=== PATIENT | female | born 1995 | race Caucasian/White ===

== ENCOUNTER → 2023-03-25 09:53 | Outpatient (BNVA) | payer SELFPAY | PROVIDERS: Visit Provider Physician Assistant Surgical ==

== ENCOUNTER 2023-04-28 12:52 | Outpatient (AMB) | payer OTHER, SELFPAY ==
--- NOTE | 2023-04-28 12:56 | A.OFFVIS_ITS ---
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 Her goal is to be more active and relieve rashes under pannus. . She reports first being concerned about her weight since puberty. She has tried multiple methods of weight loss including diets and increasing exercise. without permanent results. She lives alone. 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 She wakes at: 7am bed at 10:30 - 11 am Breakfast: skips breakfast 3d/ week. 7:15 am - Elevation bars 12 g, 170 calories, or Elevation shake 10 mg. Lunch: 12 pm - restaurant food 3d/ week.OR leftovers and water Dinner: 5pm - 9pm - when hungry, rice and beans bowls with chicken and cheese, sour cream salsa and chips or pizza. Vegetables 3-4 d/ week. Likest o repeat her meals After dinner: ice cream bars often Other snacks: none Liquids: 10 am - 2pm One Coffee - 2-3 shots of espresso, 2% milk and chocolate syrup once a day. Alcohol intake: 12 drinks in one year, tobacco: none, marijuana: once every few weeks, edibles - not munchhy Exercise: walks 3-4 d/week, half mile up to 2 miles. ? time. NO membership. Has a step for exercise. Last mammogram: never - too young Last pap smear: up to date control method: combination OCP ALIZA:2 ESS:10 GERD:0 QOL: 136 PFSH Surgical History History of placement of ear tubes Hx of adenoidectomy Hx of tonsillectomy Hx of wisdom tooth extraction Family History Mother High cholesterol Obesity Father High cholesterol Obesity Sister Asthma Social History Alcohol intake: current Alcohol intake frequency: holidays/special occasions only Patient Tobacco Use Status: Never used Tobacco Physical Exam Vital Signs: Last Vital Signs Temp 96.1 F L 04/28/23 12:58 Pulse 91 04/28/23 12:58 BP 138/85 04/28/23 12:58 Pulse Ox 98 04/28/23 12:58 Oxygen Delivery Method Room Air 04/28/23 12:58 BMI result Body Mass Index 61.5 Const General: cooperative, no acute distress and well developed Nutritional Appearance: obese Orientation/consciousness: patient oriented x3 HEENT Head: Yes normal to inspection Neck Neck: Yes normal visual inspection Thyroid: Thyroid normal Resp Effort & Inspection: normal respiratory effort Auscultation: clear to auscultation bilaterally Cardio Rate: regular rate Rhythm: regular rhythm Heart sounds: S1 normal heart sound present, S2 normal heart sound present and no murmurs GI Inspection: No distended, Yes Abdominal panniculus present and Yes obesity Palpation (GI): Soft to palpation, nontender and no guarding Skin General skin exam: no rashes or lesions noted and other (warm and dry) Wounds: no wounds Hair: normal Neuro General: patient oriented x3 Extrem General: Yes no pedal edema and Yes no calf tenderness Psych Attitude: cooperative Thought process: Normal thought process present Thought content: Normal thought content present Insight: Good insight present (Psych) Judgement: Good judgement present (Psych) Assessment & Plan Assessment & Plan (1) Morbid obesity: Code(s): E66.01 - Morbid (severe) obesity due to excess calories Plan: This is a 27 yo woman with morbid obesity and ADHD who will start SWL program to prepare for bariatric surgery. Blood work, h pylori , CXR, ECG, Abd ULS and UGI have been ordered. She is being scheduled for RD and BH initial consultations. She will start SWL classes and watch at 3 classes before her next appt with Zoe. 1. Adequate sleep of 7-8 hours per night discussed 2. Healthy meal plan - stop skipping meals and stop all restaurant food for now. All meals/MR's need to take 20 minutes to complete 8am - 30 gram shake 12 pm - 30 gram shake 3 pm- bar or yogurt 6 pm- dinner of 6 oz lean protein, 8 oz vegetable, 1 serving fruit 9pm - bar if needed Exercise - Cardio 4 d week - LS 2 mile videos or TBP videos. OR walk 2 miles in 45 minutes The importance of avoiding and breast feeding for at least 18 months after bariatric surgery was discussed in the information session and was reinforced today. Pt will purchase body composition analyzer (recommended list given to patient) and weight herself weekly. Next appt with me in 3 weeks. Text me with any questions and weekly weights. Patient is morbidly obese and is not considered stable at this time.?I spent a total of 60 minutes reviewing/updating records, examining the patient and counseling the patient on weight management as detailed above. (2) ADHD: Code(s): F90.9 - Attention-deficit hyperactivity disorder, unspecified type Orders: Orders Vitamin B12 and Folate Today E66.01 - Morbid (severe) obesity due to excess calories, F90.9 - Attention-deficit hyperactivity disorder, unspecified type, Z01.818 - Encounter for other preprocedural examination Comprehensive Met. Panel Today E66.01 - Morbid (severe) obesity due to excess calories, F90.9 - Attention-deficit hyperactivity disorder, unspecified type, Z01.818 - Encounter for other preprocedural examination C Reactive Protein Today E66.01 - Morbid (severe) obesity due to excess calories, F90.9 - Attention-deficit hyperactivity disorder, unspecified type, Z01.818 - Encounter for other preprocedural examination Ferritin Today E66.01 - Morbid (severe) obesity due to excess calories, F90.9 - Attention-deficit hyperactivity disorder, unspecified type, Z01.818 - Encounter for other preprocedural examination Hemoglobin A1c Today E66.01 - Morbid (severe) obesity due to excess calories, F90.9 - Attention-deficit hyperactivity disorder, unspecified type, Z01.818 - Encounter for other preprocedural examination Insulin Today E66.01 - Morbid (severe) obesity due to excess calories, F90.9 - Attention-deficit hyperactivity disorder, unspecified type, Z01.818 - Encounter for other preprocedural examination IRON PROFILE Today E66.01 - Morbid (severe) obesity due to excess calories, F90.9 - Attention-deficit hyperactivity disorder, unspecified type, Z01.818 - Encounter for other preprocedural examination Lipid Panel Today E66.01 - Morbid (severe) obesity due to excess calories, F90.9 - Attention-deficit hyperactivity disorder, unspecified type, Z01.818 - Encounter for other preprocedural examination PTHI Today E66.01 - Morbid (severe) obesity due to excess calories, F90.9 - Attention-deficit hyperactivity disorder, unspecified type, Z01.818 - Encounter for other preprocedural examination TSH reflex Free T4 Today E66.01 - Morbid (severe) obesity due to excess calories, F90.9 - Attention-deficit hyperactivity disorder, unspecified type, Z01.818 - Encounter for other preprocedural examination Vitamin A Today E66.01 - Morbid (severe) obesity due to excess calories, F90.9 - Attention-deficit hyperactivity disorder, unspecified type, Z01.818 - Encounter for other preprocedural examination Vitamin B1 Today E66.01 - Morbid (severe) obesity due to excess calories, F90.9 - Attention-deficit hyperactivity disorder, unspecified type, Z01.818 - Encounter for other preprocedural examination Vitamin D 25-OH Total Today E66.01 - Morbid (severe) obesity due to excess calories, F90.9 - Attention-deficit hyperactivity disorder, unspecified type, Z01.818 - Encounter for other preprocedural examination Zinc Today E66.01 - Morbid (severe) obesity due to excess calories, F90.9 - Attention-deficit hyperactivity disorder, unspecified type, Z01.818 - Encounter for other preprocedural examination ECG 12 lead EKG Today E66.01 - Morbid (severe) obesity due to excess calories, F90.9 - Attention-deficit hyperactivity disorder, unspecified type, Z01.818 - Encounter for other preprocedural examination FL upper GI w air Today E66.01 - Morbid (severe) obesity due to excess calories, F90.9 - Attention-deficit hyperactivity disorder, unspecified type, Z01.818 - Encounter for other preprocedural examination Complete Blood Count Auto Diff Today E66.01 - Morbid (severe) obesity due to excess calories, F90.9 - Attention-deficit hyperactivity disorder, unspecified type, Z01.818 - Encounter for other preprocedural examination H Pylori Breath Test Today E66.01 - Morbid (severe) obesity due to excess calories, F90.9 - Attention-deficit hyperactivity disorder, unspecified type, Z01.818 - Encounter for other preprocedural examination US abdomen comp w elastography Today E66.01 - Morbid (severe) obesity due to excess calories, F90.9 - Attention-deficit hyperactivity disorder, unspecified type, Z01.818 - Encounter for other preprocedural examination XR chest 2V Today E66.01 - Morbid (severe) obesity due to excess calories, F90.9 - Attention-deficit hyperactivity disorder, unspecified type, Z01.818 - Encounter for other preprocedural examination Referrals Behavioral Health Referral E66.01 - Morbid (severe) obesity due to excess calories, F90.9 - Attention-deficit hyperactivity disorder, unspecified type, Z01.818 - Encounter for other preprocedural examination Nutrition/Dietitian Referral E66.01 - Morbid (severe) obesity due to excess calories, F90.9 - Attention-deficit hyperactivity disorder, unspecified type, Z01.818 - Encounter for other preprocedural examination Coding Level of Care Code New Pt Level 5 (10860) Diagnoses Morbid obesity E66.01 ADHD F90.9
[2023-04-28 12:58] VITALS: BP 138/85; PULSE 91; TEMP 35.6; O2SAT 98; BMI 61.5
== END 2023-04-28 14:03 | disposition home or self-care (01) ==
PROVIDERS: Visit Provider Physician Assistant
DX: E66.01 Morbid (severe) obesity due to excess calories (principal); F90.9 Attention-deficit hyperactivity disorder, unspecified type
CPT/HCPCS: 99205

== ENCOUNTER → 2023-04-28 12:52 | Outpatient (BNVA) | payer OTHER, SELFPAY | PROVIDERS: Visit Provider Physician Assistant ==

== ENCOUNTER 2023-05-01 08:53 | Outpatient (REF) | payer OTHER, SELFPAY ==
--- NOTE | ~2023-05-01 | XR_ITS ---
EXAMINATION: XR CHEST CLINICAL INFORMATION: Obesity. COMPARISON: None available. TECHNIQUE: 2 views of the chest were obtained. FINDINGS: Cardiac and mediastinal silhouettes are normal in appearance. The lung volumes are slightly decreased but the lungs and pleural spaces are clear. No atelectasis. No acute osseous abnormalities. XR/XR chest 2V IMPRESSION: Unremarkable examination.
--- NOTE | 2023-05-01 09:00 | ECG_ITS ---
Test Reason : MORBID OBESITY Blood Pressure : / mmHG Vent. Rate : 083 BPM Atrial Rate : 083 BPM P-R Int : 136 ms QRS Dur : 078 ms QT Int : 364 ms P-R-T Axes : 057 047 041 degrees QTc Int : 427 ms Normal sinus rhythm Normal ECG No previous ECGs available Referred By: Gladys Valladares Electronically Signed By:LA JEAN
[2023-05-01 09:32] LABS: MANUAL DIFF FLAG NO
[2023-05-01 09:44] LABS: Basophils Absolute Auto 0.1 X10*3/uL (0.0-0.2); Basophils Percent Auto 0.9 % (0-2); Eosinophils Absolute Auto 0.3 X10*3/uL (0.0-0.4); Eosinophils Percent Auto 2.1 % (0-4); Imm Gran Abs Auto 0.04 X10*3/uL (0.00-0.03); Imm Gran Pct Auto 0.3 % (0.0-0.4); Lymphocytes Absolute Auto 2.4 X10*3/uL (1.2-4.9); Lymphocytes Percent Auto 20.6 % (20-40); Mean Corpuscular HGB Conc 30.8 g/dl (31.0-35.0); Mean Corpuscular Hemoglobin 24.5 pg (27.0-33.0); Mean Corpuscular Volume 79.6 fL (80.0-98.0); Mean Platelet Volume 9.1 fL (9.4-12.3); Monocytes Absolute Auto 0.6 X10*3/uL (0.1-1.2); Monocytes Percent Auto 5.2 % (2-11); Neutrophils Absolute Auto 8.3 x10*3/uL (2.0-8.3); Neutrophils Percent Auto 70.9 % (45-73); Platelet Count 550 X10*3/uL (160-400); Red Cell Distribution Width 16.1 % (11.0-16.0); White Blood Count 11.6 X10*3/uL (4.8-10.8)
[2023-05-01 09:52] LABS: Estimated Average Glucose 97 mg/dL
[2023-05-01 10:25] LABS: Alanine Aminotransferase 11 U/L (0-31); Alkaline Phosphatase 93 U/L (39-117); Anion Gap 17 (12-20); Aspartate Amino Transferase 13 U/L (5-31); Bilirubin Total 0.3 mg/dL (0.0-1.0); Blood Urea Nitrogen 16 mg/dL (9-16); C Reactive Protein 5.62 mg/dL (< or = 0.50); Calcium 9.6 mg/dL (8.4-10.2); Carbon Dioxide 22 mmol/L (22-29); Chloride 105 mmol/L (96-108); Cholesterol 202 mg/dL; Estimated Glomerular Filt Rate > 60; Glucose Random 89 mg/dL (60-115); HDL Cholesterol 46 mg/dL; Iron 48 mcg/dL (30-160); LDL Cholesterol Calculated 122 mg/dl; Percent Iron Saturation 13 % (15-50); Potassium 3.9 mmol/L (3.3-5.1); Sodium 140 mmol/L (135-145); Total Iron Binding Capacity 384 mcg/dL (228-428); Total Protein 7.8 g/dL (6.5-8.0); Triglycerides 172 mg/dL; Unsaturated Iron Binding 336 ug/dL
[2023-05-01 10:32] LABS: Ferritin 28 ng/mL (10-122); Insulin 24 uU/mL (2-29); TSH reflex Free T4 3.98 uIU/mL (0.32-4.0); Vitamin D 25-OH Total 33.8 ng/mL (>30)
[2023-05-01 10:44] LABS: Folate 8.2 ng/mL (> or = 4.0); Vitamin B12 423 pg/mL (200-900)
[2023-05-05 12:42] LABS: Calcium (PTHI) 9.4 mg/dL (8.6-10.2); PTHI 83 pg/mL (16-77)
[2023-05-06 02:04] LABS: Zinc 72 mcg/dL (60-130)
[2023-05-07 14:29] LABS: Vitamin A 70 mcg/dL (38-98)
[2023-05-07 15:39] LABS: Vitamin B1 9 nmol/L (8-30)
== END 2023-05-01 08:54 | disposition home or self-care (01) ==
LOC: HO.XRAY 08:53
PROVIDERS: Visit Provider Physician Assistant
DX: Z01.818 Encounter for other preprocedural examination (principal); E66.01 Morbid (severe) obesity due to excess calories; F90.9 Attention-deficit hyperactivity disorder, unspecified type
CPT/HCPCS: 36415; 71046; 80053; 80061; 82306; 82607; 82728; 82746; 83036; 83525; 83540; 83970; 84425; 84443; 84590; 84630; 85025; 86140; 93005

== ENCOUNTER → 2023-05-01 09:00 | Outpatient (BNV) | payer OTHER, SELFPAY | PROVIDERS: Visit Provider Internal Medicine | DX: E66.9 Obesity, unspecified (principal) | CPT/HCPCS: 93010 ==

== ENCOUNTER 2023-05-08 08:16 | Outpatient (AMB) | payer OTHER, SELFPAY ==
--- NOTE | 2023-05-08 08:19 | MHC.AMNUTRGE ---
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 Classes: 01/04 Previous weight loss methods attempted Her goal is to be more active and relieve rashes under pannus. . She reports first being concerned about her weight since puberty. She has tried multiple methods of weight loss including diets and increasing exercise. without permanent results. Dietary counseling reduction Who buys your food self Who prepares/cooks your food self Meal frequency regular: lunch, dinner and snacks and irregular: breakfast Diagnosis Nutrition problem #1 overweight/obesity As related to (etiology) #1 excess energy intake and physical inactivity As evidenced by (sign/symptom) #1 high BMI Monitoring/Goals Nutrition problem monitoring total energy intake, level of knowledge/skill, total PRO intake, total CHO intake, weight and oral fluids Outcome progress progressing Learning/Education Readiness to learn excellent Stages of change action Educational materials provided Yes Most Recent Diabetes Results: Cholesterol 202 mg/dL 05/01/23 HDL Cholesterol 46 mg/dL 05/01/23 Triglycerides 172 mg/dL 05/01/23 Creatinine 0.73 mg/dL (0.5-1.4) 05/01/23 Blood Urea Nitrogen 16 mg/dL (9-16) 05/01/23 Sodium 140 mmol/L (135-145) 05/01/23 Potassium 3.9 mmol/L (3.3-5.1) 05/01/23 Chloride 105 mmol/L (96-108) 05/01/23 Carbon Dioxide 22 mmol/L (22-29) 05/01/23 Calcium 9.6 mg/dL (8.4-10.2) 05/01/23 AST 13 U/L (5-31) 05/01/23 ALT 11 U/L (0-31) 05/01/23 Total Protein 7.8 g/dL (6.5-8.0) 05/01/23 Albumin 4.0 g/dL (3.5-5.0) 05/01/23 PFSH Surgical History History of placement of ear tubes Hx of adenoidectomy Hx of tonsillectomy Hx of wisdom tooth extraction Family History Mother High cholesterol Obesity Father High cholesterol Obesity Sister Asthma Social History Alcohol intake: current Alcohol intake frequency: holidays/special occasions only Patient Tobacco Use Status: Never used Tobacco Assessment & Plan Assessment & Plan (1) Morbid obesity: Code(s): E66.01 - Morbid (severe) obesity due to excess calories Patient Instructions: recommended increasing calories and protein slightly given age and trying to preserve metabolism. We also talked about some alternatives to keep meals exciting and have variety fdc such as balaji crunch in yogurt.. Appt with Gladys was given to pt but never booked , so this was fixed today. Her next appt will be with Gladys in may , so I will see pt in 2-3 weeks to bridge the gap in appointments and to support her. Pt will likely be a great candidate once she completes the program requirements. Coding Level of Care Code Nutr Indiv Intake (14969) Diagnoses Morbid obesity E66.01 Time Spent (min) 45
[2023-05-08 08:39] VITALS: BMI 59.7
== END 2023-05-08 10:21 | disposition home or self-care (01) ==
PROVIDERS: Visit Provider Dietitian, Registered
DX: E66.01 Morbid (severe) obesity due to excess calories (principal)

== ENCOUNTER → 2023-05-08 08:16 | Outpatient (BNVA) | payer OTHER, SELFPAY | PROVIDERS: Visit Provider Dietitian, Registered | DX: E66.01 Morbid (severe) obesity due to excess calories (principal); F90.9 Attention-deficit hyperactivity disorder, unspecified type; Z68.43 Body mass index [BMI] 50.0-59.9, adult; Z11.2 Encounter for screening for other bacterial diseases; Z71.3 Dietary counseling and surveillance | CPT/HCPCS: 97802 ==

== ENCOUNTER 2023-05-09 16:06 | Outpatient (REF) | payer OTHER, SELFPAY ==
[2023-05-10 10:31] LABS: H Pylori Breath Test Negative (Negative)
== END 2023-05-09 16:07 | disposition home or self-care (01) ==
LOC: HO.LNP 16:06
PROVIDERS: Visit Provider Physician Assistant
DX: Z01.818 Encounter for other preprocedural examination (principal); E66.01 Morbid (severe) obesity due to excess calories; F90.9 Attention-deficit hyperactivity disorder, unspecified type
CPT/HCPCS: 83013

== ENCOUNTER 2023-05-13 10:14 | Outpatient (REF) | payer OTHER, SELFPAY ==
--- NOTE | ~2023-05-13 | FL_ITS ---
EXAMINATION: XR FLUOROSCOPY UPPER GI WITH AIR CLINICAL INFORMATION: Morbid obesity due to excess calories, preop. COMPARISON: None available. TECHNIQUE: Standard dual air-contrast upper GI examination was performed using thick and thin barium. Numerous fluoroscopic images were obtained. FINDINGS: The esophagus is normal in caliber and contour. No evidence of mass, stricture, or mucosal abnormality. Esophageal peristalsis appears normal. No evidence of hiatus hernia. Minimal gastroesophageal reflux was observed during the exam. Images of the stomach, duodenal bulb, and duodenal sweep appear normal. FLUOROSCOPY TIME: 3 minutes 15 images obtained. DOSE AREA PRODUCT: 41.873 uGy-m2 (microgray-meter squared) FL/FL upper GI w air IMPRESSION: Minimal gastroesophageal reflux noted. Otherwise, normal double contrast upper GI examination.
== END 2023-05-13 10:15 | disposition home or self-care (01) ==
LOC: HO.XRAY 10:14
PROVIDERS: Visit Provider Physician Assistant
DX: Z01.818 Encounter for other preprocedural examination (principal); E66.01 Morbid (severe) obesity due to excess calories; F90.9 Attention-deficit hyperactivity disorder, unspecified type
CPT/HCPCS: 74246

== ENCOUNTER → 2023-05-13 10:15 | Outpatient (BNV) | payer OTHER, SELFPAY | PROVIDERS: Visit Provider Radiology Diagnostic Radiology | DX: Z01.818 Encounter for other preprocedural examination (principal) | CPT/HCPCS: 74246 ==

== ENCOUNTER 2023-05-20 08:17 | Outpatient (AMB) | payer OTHER, SELFPAY ==
--- NOTE | 2023-05-20 08:33 | MHC.AMNUTRGE ---
Intake VS Expanded 05/20/23 08:38 Height 5 ft 5 in Weight 356 lb BMI 59.2 Body Fat 194.4 Body Fat Percentage 54.6 Muscle Mass 153.2 Visceral Mass 21 Water Mass 116.2 BMR 2,440 Intake Visit Reasons: (OV) F/U SWL Allergies No Known Allergies Allergy (Verified 04/28/23 12:58) HPI Nutrition Presentation Details [employer] weight (04/28) 369# - BMI 61.5 weight last nutrition appt 2 weeks ago 359# current weight today 356# Reason for consult elevated BMI Diet Assmnt Details Started the day after she met with Kuldeep 8:30am Premier premade or [employer] shakes 12pm shake 3pm Aldis 18g protein bar dinner: meat, veg, fruit isn't eating the evening protein bar - feels full after dinner Prior to coming to program, used to get taco Hartley very freuqently. shares she was craving it the other day and instead got the mini low carb mission wraps, and made her own tacos at home. Exercise: Once did 0.8 mile walk, very tired. Now is doing 3x per week dance videos about 30-35 minutes long. needs to take breaks but keeps going. She is open to adding in walking 1 day per week She lives alone.? Classes: 01/04 Previous weight loss methods attempted Her goal is to be more active and relieve rashes under pannus. . She reports first being concerned about her weight since puberty. She has tried multiple methods of weight loss including diets and increasing exercise. without permanent results. Dietary counseling reduction Diagnosis Nutrition problem #1 overweight/obesity As related to (etiology) #1 excess energy intake and physical inactivity As evidenced by (sign/symptom) #1 high BMI Monitoring/Goals Nutrition problem monitoring total energy intake, level of knowledge/skill, total PRO intake, total CHO intake, weight and oral fluids Outcome progress progressing Learning/Education Readiness to learn excellent Stages of change action Educational materials provided Yes Most Recent Diabetes Results: Cholesterol 202 mg/dL 05/01/23 HDL Cholesterol 46 mg/dL 05/01/23 Triglycerides 172 mg/dL 05/01/23 Creatinine 0.73 mg/dL (0.5-1.4) 05/01/23 Blood Urea Nitrogen 16 mg/dL (9-16) 05/01/23 Sodium 140 mmol/L (135-145) 05/01/23 Potassium 3.9 mmol/L (3.3-5.1) 05/01/23 Chloride 105 mmol/L (96-108) 05/01/23 Carbon Dioxide 22 mmol/L (22-29) 05/01/23 Calcium 9.6 mg/dL (8.4-10.2) 05/01/23 AST 13 U/L (5-31) 05/01/23 ALT 11 U/L (0-31) 05/01/23 Total Protein 7.8 g/dL (6.5-8.0) 05/01/23 Albumin 4.0 g/dL (3.5-5.0) 05/01/23 PFSH Surgical History History of placement of ear tubes Hx of adenoidectomy Hx of tonsillectomy Hx of wisdom tooth extraction Family History Mother High cholesterol Obesity Father High cholesterol Obesity Sister Asthma Social History Alcohol intake: current Alcohol intake frequency: holidays/special occasions only Patient Tobacco Use Status: Never used Tobacco Assessment & Plan Assessment & Plan (1) Morbid obesity: Code(s): E66.01 - Morbid (severe) obesity due to excess calories Patient Instructions: 1. talked about healthier options for sweet cravings around time of menstrual period 2. encouraged 4x per week now for exercise, continue videos and add in 1 mile walking on 4th day 3. encouraged activity throughout the day to prevent long periods of being sedentary 4. f/u 06/16 with kuldeep, then with 06/25 8:30 video and complete classes before appt she will likely be a great candidate once she completes program requirements Coding Level of Care Code Nutr Indiv Subseq (15676) Diagnoses Morbid obesity E66.01 Time Spent (min) 30
[2023-05-20 08:38] VITALS: BMI 59.2
== END 2023-05-20 08:53 | disposition home or self-care (01) ==
PROVIDERS: Visit Provider Dietitian, Registered
DX: E66.01 Morbid (severe) obesity due to excess calories (principal)

== ENCOUNTER → 2023-05-20 08:17 | Outpatient (BNVA) | payer OTHER, SELFPAY | PROVIDERS: Visit Provider Dietitian, Registered | DX: E66.01 Morbid (severe) obesity due to excess calories (principal); Z68.43 Body mass index [BMI] 50.0-59.9, adult; Z71.3 Dietary counseling and surveillance | CPT/HCPCS: 97803 ==

== ENCOUNTER 2023-05-22 07:50 | Outpatient (REF) | payer OTHER, SELFPAY ==
--- NOTE | ~2023-05-22 | US_ITS ---
EXAMINATION: US COMPLETE ABDOMEN WITH LIVER ELASTOGRAPHY CLINICAL INFORMATION: Obesity. COMPARISON: None available. TECHNIQUE: Real-time imaging of the abdominal viscera. Noninvasive ultrasound liver fibrosis assessment is performed using Sonam ElastPQ point quantification shear wave elastography (2D-SWE) with a C5-2 MHz transducer. Multiple elastography samples are obtained. Imaging is technically limited by body habitus. FINDINGS: PANCREAS: Normal. The visualized pancreatic head and body are normal in appearance. The remainder of the pancreas is obscured from visualization by the overlying bowel gas. ABDOMINAL AORTA: The proximal, middle, and distal aortic segments are normal in caliber. INFERIOR VENA CAVA: Visualized portions are normal. LIVER: Normal. The liver demonstrates normal size, contour and echogenicity. No focal lesion or intrahepatic biliary duct dilatation. The right lobe measures 15.4 cm in length. The left lobe measures 12.9 cm in length. Portal flow is towards the liver (hepatopetal). Shear wave liver elastography median stiffness is 2.32 m/s (reference: normal median stiffness is 1.3 m/s or less). IQR/median stiffness to assess sampling precision is 0.11 (reference: good quality data set is IQR/median stiffness of 0.15 or less). GALLBLADDER: Normal. The gallbladder is physiologically distended without evidence of stones, sludge, polyps, wall thickening or pericholecystic fluid. COMMON BILE DUCT: Normal in caliber measuring 0.4 cm in diameter. RIGHT KIDNEY: Normal. No hydronephrosis. No renal calculi or focal parenchymal lesions. The kidney measures 10.4 cm in maximum dimension. LEFT KIDNEY: Normal. No hydronephrosis. No renal calculi or focal parenchymal lesions. The kidney measures 11.3 cm in maximum dimension. SPLEEN: Normal. The spleen measures 12.7 cm in maximum dimension. FREE FLUID: None. US/US abdomen comp w elastography IMPRESSION: Liver elastography: Measuremensts are consistent with compensated advanced chronic liver disease. REFERENCE: Society of Radiologists in Ultrasound Liver Stiffness Thresholds (2020): LIVER STIFFNESS THRESHOLDS: *Liver Stiffness equal or less than 1.3 m/s: High probability of being normal. *Liver Stiffness less than 1.7 m/s: In the absence of other known clinical signs, rules out compensated advanced chronic liver disease. *Liver Stiffness 1.7-2.1 m/s: Suggestive of compensated advanced chronic liver disease but need further test for confirmation. *Liver Stiffness over 2.1 m/s: Rules in compensated advanced chronic liver disease. *Liver Stiffness over 2.4 m/s: Suggestive of clinically significant portal hypertension. QUALITY OF DATA SET: *IQR/Median value equal or less than 0.15 implies a quality data set. *IQR/Median value over 0.15 implies a poor quality data set. SIGNIFICANT CHANGE FROM PRIOR EXAM: Significant change if liver stiffness measurement is 10% or greater from prior exam. OTHER CONSIDERATIONS: The stage of liver fibrosis may be overestimated in the setting of acute hepatitis, liver inflammation, elevated liver function tests, hepatic vascular congestion, obstructive cholestasis, non-fasting state, and infiltrative diseases such as amyloidosis and lymphoma. In some patients with NAFLD, the liver stiffness thresholds for compensated advanced chronic liver disease may be lower. In causes other than viral hepatitis and NAFLD, liver stiffness thresholds are not well established.
== END 2023-05-22 07:51 | disposition home or self-care (01) ==
LOC: HO.US 07:50
PROVIDERS: Visit Provider Physician Assistant
DX: Z01.818 Encounter for other preprocedural examination (principal); E66.01 Morbid (severe) obesity due to excess calories; F90.9 Attention-deficit hyperactivity disorder, unspecified type
CPT/HCPCS: 76705; 76981

== ENCOUNTER 2023-05-27 10:46 | Outpatient (AMB) | payer OTHER, SELFPAY ==
--- NOTE | 2023-05-27 10:05 | MHC.OFFVISWM ---
Intake VS Expanded 05/27/23 11:01 Height 5 ft 5 in Weight 352 lb BMI 58.6 BP 140/92 H Blood Pressure Location Rt brachial Blood Pressure Position Sitting Pulse 108 H Pulse Source Pulse Oximeter Temp 96.1 F L Temperature Source Temporal Artery Scan Pulse Oximetry 96 Oxygen Delivery Method Room Air Body Fat 187.2 Body Fat Percentage 53.2 Free Fat Mass 164.6 Muscle Mass 156.6 Visceral Mass 20.0 Water Mass 118.4 BMR 2,474 Intake Visit Reasons: (OV) F/U SWL Allergies No Known Allergies Allergy (Verified 05/27/23 11:01) HPI HPI Comments History of Present Illness Details This is the patients second appt for SWL. Starting weight was 369.4 lbs on 04/28/23. TBWL is 17.4 lbs or 4.7% TBWL. Meal plan: 8am - Fairlife OR Premier RTD shake 12 pm - shake or yogurt and 1/2 serving Ifrah crunch (approved by Zoe) 3 pm - alternates with 12 pm choices 6pm - 6 oz each protien and vegetable 8:30 - cantaloupe or apples. Exercise plan: 2.5 days/ week. [employer][pecialists [employer] videos - 15 or 30 minutes may do another 15 minute video for total of 30 minutes. Also takes walks in evening Pre op work up completed as follows: SWL classes - 01/04 appts -05/29, Regla JAY appts - follow up on 06/25 H pylori - negative Labs - done, LFT's normal CXR and ECG - both normal ULS - Liver elastography:? Measuremensts are consistent with compensated advanced chronic liver disease. R 15.4, L 12.9 cms ?UGI - minimal reflux only PFSH Surgical History History of placement of ear tubes Hx of adenoidectomy Hx of tonsillectomy Hx of wisdom tooth extraction Family History Mother High cholesterol Obesity Father High cholesterol Obesity Sister Asthma Social History Alcohol intake: current Alcohol intake frequency: holidays/special occasions only Patient Tobacco Use Status: Never used Tobacco Physical Exam Vital Signs: Last Vital Signs Temp 96.1 F L 05/27/23 11:01 Pulse 108 H 05/27/23 11:01 BP 140/92 H 05/27/23 11:01 Pulse Ox 96 05/27/23 11:01 Oxygen Delivery Method Room Air 05/27/23 11:01 BMI result Body Mass Index 58.6 Assessment & Plan Assessment & Plan (1) Morbid obesity: Code(s): E66.01 - Morbid (severe) obesity due to excess calories Plan: Very good start with 17.4 lbs or 4.7% TBWL. She has a good meal plan - but as I recommended to her the first tiem she should have another MR per day. Will add hb egg or reduced fat cheesestick with fruit in the evening. Exercise - not adequate yet. Will start LS 2 mile videos 4 d/ week for now - needs 30 minutes continuous at a time. Will also contienu her evening walks. Once the cardio is easier will add ST. I have encouraged her to send me weekly weights so that I can help her more. Next appt with me in 3 weeks, I have reviewed all upcoming appts with her. Patient is morbidly obese and is not considered stable at this time. I spent 30 minutes in total with patient reviewing/updating records, examining the patient and counseling the patient on weight management as detailed above. (2) Liver disease, chronic: Code(s): K76.9 - Liver disease, unspecified Coding Level of Care Code Est Pt Level 4 (60982) Diagnoses Morbid obesity E66.01 Liver disease, chronic K76.9
[2023-05-27 11:01] VITALS: BP 140/92; PULSE 108; TEMP 35.6; O2SAT 96; BMI 58.6
== END 2023-05-27 11:33 | disposition home or self-care (01) ==
PROVIDERS: Visit Provider Physician Assistant
DX: E66.01 Morbid (severe) obesity due to excess calories (principal); K76.9 Liver disease, unspecified
CPT/HCPCS: 99214

== ENCOUNTER → 2023-05-27 10:46 | Outpatient (BNVA) | payer OTHER, SELFPAY | PROVIDERS: Visit Provider Physician Assistant ==

== ENCOUNTER 2023-05-29 10:36 | Outpatient (AMB) | payer OTHER, SELFPAY ==
--- NOTE | 2023-05-29 10:14 | A.OFFWM_ITS ---
Intake Intake Visit Reasons: VIDEO BH Intake Allergies No Known Allergies Allergy (Verified 05/27/23 11:01) PFSH Surgical History History of placement of ear tubes Hx of adenoidectomy Hx of tonsillectomy Hx of wisdom tooth extraction Family History Mother High cholesterol Obesity Father High cholesterol Obesity Sister Asthma Social History Alcohol intake: current Alcohol intake frequency: holidays/special occasions only Patient Tobacco Use Status: Never used Tobacco Behavioral Health Assessment Weight Management Therapy Therapy Notes Details Pt reported that she is looking to have weight loss surgery to help improve her health and quality of life. She struggles to do the things she loves because of her weight. Pt is not in therapy but was in the past. She reported seeking out help for anxiety and depression in the past and was diagnosed with ADHD. Pt has no history of inpatient psychiatric admissions or problems with drugs or alcohol. Presenting Concerns Referral Source provider Reason for referral weight loss surgery evaluation Precipitating Event obesity Living Situation Current Living Situation Other (Patient lives in an apartment on the [facility] where she works. ) At risk of losing current housing? No Satisfied with current living situation? Yes Comments Patient lives on her own on a college campus. Food/Weight/Diet Expectations of change weight loss and maintenance History/Relationship with food Patient stated that she did not realize she might be an emotional eater. She stated that if she gets taco leo then she will get it everyday that week, same with Celi Maria Michell reported that she was over eating, eating in the car, and then would feel icky after eating. She would often eat out sometimes more than once a day, definitely everyday. Driving off campus to get food was a way for her to get away because she works and lives in the same building. Sometimes would have late dinner and then stay up late. Also would drink lattes from [employer] often. During graduate school she worked at [employer] and would get any drink for free and 7 free meals. History/Relationship with weight Pt stated that since puberty she has been the big girl . After an injury in graduate school she had lost some mobility and was in pain which led to more weight gain. History/Relationship with dieting no prior history of specific diets, has only tried calorie reduction Binge Eating Do you frequently eat large amounts of food in short periods of time, not feeling physically hungry? No Do you feel out of control when you eat a large amount of food in a short perio d of time? No Do you eat large amounts of food rapidly and typically alone? No Night Eating Do you wake up at least once during the night to eat? No If you wake up in the night, do you find that it is necessary to eat something in order to fall back asleep? No Do you have little or no appetite in the morning and feel very hungry in the evening, often overeating between dinner and when you go to bed? No Social History Family history and relationship Pt is from [place] and went to graduate school in [place]. She now works at [employer]. Pt was raised by her mother and father and younger sister. She reported both parents are overweight. 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 none Education Highest grade completed graduate school counseling degree for higher education (half admin/psychology). Preferred learning style Auditory, Verbal, Written, Learn by doing and Visual Currently enrolled in educational program? No Interested in further educational program? 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 No Meaningful activities reading, nature, sitting by the water Financial Situation Describe current financial situation Comfortable Financial assistance? None Service Service? No Mental Health and Addiction Treatment Current/Past substance abuse? No Current/Past addictive behavior concerns? No Pain Screening Current pain? No Pain in the last few months? No Medications Is the patient compliant with medications? Yes Does the patient have S[place] Guardian in place? Not applicable Does the patient use complimentary health approaches? No Trauma/Abuse History History of trauma? No Questionnaires PHQ-9 Over the last 2 weeks, how often have you been bothered by any of the following problems? 1. Little interest or pleasure in doing things: several days 2. Feeling down, depressed, or hopeless: not at all 3. Trouble falling or staying asleep, or sleeping too much: several days 4. Feeling tired or having little energy: several days 5. Poor appetite or overeating: several days 6. Feeling bad about yourself - or that you are a failure or have let yourself or your family down: not at all 7. Trouble concentrating on things, such as reading the newspaper or watching television: several days 8. Moving or speaking so slowly that other people could have noticed. Or the opposite - being so fidgety or restless that you have been moving around a lot more than usual: not at all 9. Thoughts that you would be better off or of hurting yourself in some way: not at all Total score: 5 Depression Screening Interpretation: Negative Source: Developed by Drs. Scout King, Arlene Colmenares, Elijah Stoll and colleagues, with an educational radha from [employer]. Binge Eating Scale Group 1 A. I don't feel self-conscious about my wt. or body size when I'm with others. B. I feel concerned about how I look to others, but it normally does not make me fell disappointed with myself C. I do get self-conscious about my appearance and wt. which makes me feel disappointed in myself. D. I feel very self-conscious about my wt. and frequently I feel intense shame and disgust for myself. I try to avoid social contacts because of my self- consciousness. Response Group 1: C Group 2 A. I don't have any difficulty eating slowly in the proper manner. B. Although I seem to gobble down foods, I don't end up feeling stuffed because of eating to much. C. At times, I tend to eat quickly and then, I feel uncomfortably full afterwards. D. I have the habit of bolting down my food, without really chewing it. When this happens I usually feel uncomfortably stuffed because I've eaten to much. Response Group 2: A Group 3 A. I feel capable to control my eating urges when I want to. B. I feel like I have failed to control my eating more than the average person. C. I feel utterly helpless when it comes to feeling in control of my eating urges. D. Because I feel so helpless about controlling my eating I have become very desperate about trying to get control. Response Group 3: D Group 4 A. I don't have the habit of eating when I'm bored. B. I sometimes eat when I'm bored, but often I'm able to get busy and get my mind off food. C. I have a regular habit of eating when I'm bored, but occasionally, I can use some other activity to get my mind off eating. D. I have a strong habit of eating when I'm bored. Nothing seems to help me breath the habit. Response Group 4: B Group 5 A. I'm usually physically hungry when I eat something. B. Occasionally, I eat something on impulse even though I really am not hungry. C. I have the regular habit of eating foods, that I might not really enjoy, to satisfy a hungry feeling even though physically, I don't need the food. D. Although I'm not physically hungry, I get a hungry feeling in my mouth that only seems to be satisfied when I eat a food, like sandwich, that fills my mouth. Sometimes, when I eat the food to satisfy my mouth hunger, I then spit the food out so I won't gain weight. Response Group 5: B Group 6 A. I don't feel any guilt or self-hate after I overeat. B. After I overeat, occasionally I feel guilt or self-hate. C. Almost all the time I experience strong guilt or self-hate after I overeat. Response Group 6: B Group 7 A. I don't lose total control of my eating when dieting even after periods when I overeat. B. Sometimes when I eat a forbidden food on a diet, I feel like I blew it and eat even more. C. Frequently, I have the habit of saying to myself, I've blown it now, why not go all the way, when I overeat on a diet. When that happens I eat more. D. I have a regular habit of starting a strict diets for myself but I break the diets by going on an eating binge. My life seems to be either a feast or famine. Response Group 7: A Group 8 A. I rarely eat so much food that I feel uncomfortably stuffed afterwards. B. Usually about once a month, I each such a quantity of food, I end up feeling very stuffed. C. I have regular periods during the month when I eat large amounts of food, either at mealtime or at snacks. D. I eat so much food that I regularly feel quite uncomfortable after eating and sometimes a bit nauseous. Response Group 8: C Group 9 A. My level of calorie intake does not go up very high or go down very low on a regular basis. B. Sometimes after I overeat, I will try to reduce my caloric intake to almost nothing to compensate for the excess calories I've eaten. C. I have a regular habit of overeating during the night. It seems that my routine is not to be hungry in the morning but overeat in the evening. D. In my adult years, I have had week-long periods where I practically starve m yself. This follows periods when I overeat. It seems I live a life of either feast or famine. Response Group 9: A Group 10 A. I usually am able to stop eating when I want to. I know when enough is enough. B. Every so often, I experience a compulsion to eat which I can't seem to control. C. Frequently, I experience strong urges to eat which I seem unable to control, but at other times I can control my eating urges. D. I feel incapable of controlling urges to eat. I have a fear of not being able to stop eating voluntarily. Response Group 10: A Group 11 A. I don't have any problem stopping eating when I feel full. B. I usually can stop eating when I feel full but occasionally overeat leaving me feeling uncomfortably stuffed. C. I have a problem stopping eating once I start and usually I feel uncomfortably stuffed after I eat a meal. D. Because I have a problem not being able to stop eating when I want, I sometimes have to induce vomiting to relieve my stuffed feeling. Response Group 11: B Group 12 A. I seem to eat just as much when I'm with others, Family social gatherings as when I'm by myself. B. Sometimes, when I'm with other persons, I don't eat as much as I want to eat because I'm self-conscious about my eating. C. Frequently, I eat only a small amount of food when others are present, because I'm very embarrassed about my eating. D. I feel so ashamed about overeating that I pick times to overeat when I know no one will see me. I feel like a closet eater. Response Group 12: A Group 13 A. I eat three meals a day with only an occasional between meal snack. B. I eat 3 meals a day, but I also normally snack between meals. C. When I am snacking heavily, I get in the habit of skipping regular meals. D. There are regular periods when I seem to be continually eating, with no plann ed meals. Response Group 13: A Group 14 A. I don't think much about trying to control unwanted eating urges. B. At least some of the time, I feel my thoughts are pre-occupied with trying to control my eating urges. C. I feel that frequently I spend much time thinking about how much I ate or about trying not to eat anymore. D. It seems to me that most of my waking hours are pre-occupied by thoughts about eating or not eating. I feel like I'm constantly struggling not to eat. Response Group 14: B Group 15 A. I don't think about food a great deal. B. I have strong craving for food but they last only for brief periods of time. C. I have days when I can't seem to think about anything else but food. D. Most of my days seem to be pre-occupied with thoughts about food. I feel like I live to eat. Response Group 15: B Group 16 A. I usually know whether or not I'm physically hungry. I take the right portion of food to satisfy me. B. Occasionally, I feel uncertain about knowing whether or not I'm physically hungry. A these times it's hard to know how much food I should take to satisfy me. C. Even though I might know how many calories I should eat, I don't have any idea what is a normal amount of food for me. Response Group 16: B Binge Eating Score: 14 Score less than 17 Minimal Risk Score between 18-26 Moderate Risk Score between 27-46 High Risk Assessment & Plan Assessment & Plan (1) ADHD (attention deficit hyperactivity disorder), combined type: Code(s): F90.2 - Attention-deficit hyperactivity disorder, combined type (2) Morbid obesity: Code(s): E66.01 - Morbid (severe) obesity due to excess calories Plan Patient is doing very well, she has no serious mental health barriers. She is cleared for surgery when ready. Telehealth Telehealth Location of provider rendering services: other Location of patient: address on file Patient Identification confirmed using: Name, : Yes Telehealth method: video Patient verbally consented to treatment: Yes Patient verbally consented to billing insurance company: Yes Patient informed of any privacy concerns related to visit: Yes Minutes spent on Phone/Video with Pt.: 45 Coding Level of Care Code Tele Psy Diag Eval (11058) Diagnoses ADHD (attention deficit hyperactivity disorder), combined type F90.2 Morbid obesity E66.01 Time Spent (min) 45
== END 2023-05-29 10:42 | disposition home or self-care (01) ==
LOC: HO.HBST 10:36
PROVIDERS: Visit Provider Counselor Mental Health
DX: F90.2 Attention-deficit hyperactivity disorder, combined type (principal); E66.01 Morbid (severe) obesity due to excess calories
CPT/HCPCS: 90791

== ENCOUNTER → 2023-05-29 10:36 | Outpatient (BNVA) | payer OTHER, SELFPAY | PROVIDERS: Visit Provider Counselor Mental Health ==

== ENCOUNTER 2023-06-20 08:15 | Outpatient (AMB) | payer OTHER, SELFPAY ==
--- NOTE | 2023-06-20 08:17 | MHC.OFFVISWM ---
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 Meal plan: 8:30 - shake 12 pm - yogurt with Ifrah crunch OR Shake 3pm - alternates with 12 pm 6- 8pm depending on work schedule - 6 oz protein and 6 oz veg Somedays will have 1 hb egg and low fat cheese stick and fresh fruit Exercise - Had URI infection, started LS 2 miles videos 4d/ week then got sick. Pre op work up completed as follows: SWL classes - 05/06 appts -05/29, Regla cleared RD appts - follow up on 06/25 H pylori - negative Labs - done, LFT's normal CXR and ECG - both normal ULS - Liver elastography:? Measuremensts are consistent with compensated advanced chronic liver disease. R 15.4, L 12.9 cms ?UGI - minimal reflux only PFSH Surgical History History of placement of ear tubes Hx of wisdom tooth extraction Hx of adenoidectomy Hx of tonsillectomy Family History Mother High cholesterol Obesity Father High cholesterol Obesity Sister Asthma Social History Alcohol intake: current Alcohol intake frequency: holidays/special occasions only Patient Tobacco Use Status: Never used Tobacco Physical Exam Vital Signs: Last Vital Signs Temp 95.8 F L 06/20/23 08:23 Pulse 103 H 06/20/23 08:23 BP 142/84 H 06/20/23 08:23 Pulse Ox 98 06/20/23 08:23 Oxygen Delivery Method Room Air 06/20/23 08:23 BMI result Body Mass Index 57.5 Assessment & Plan Assessment & Plan (1) Morbid obesity: Code(s): E66.01 - Morbid (severe) obesity due to excess calories Plan: Great progress with 23.6 lbs or 6.4% TBWL. Will continue meal plan as is - have bar at 5 pm if not having dinner until 8 pm. She is asking good questions about making soups, grits substitute etc.. recipe ideas given - will discuss further with Zoe next week. She is also asking about food treats and became tearful when discussing hr fear of binge eating. We discussed that this is a very important feeling to name and will have another appt with Regla denis nd support. Exercise - MUST develop regular routine now - will restart LS 2 mile videos 5 d/week and will send me texts weekly with how this is working for her and her weights. Next appt wtih me in 3 weeks Patient is morbidly obese and is not considered stable at this time. I spent minutes in total with patient reviewing/updating records, examining the patient and counseling the patient on weight management as detailed above. (2) ADHD (attention deficit hyperactivity disorder), combined type: Code(s): F90.2 - Attention-deficit hyperactivity disorder, combined type Coding Level of Care Code Est Pt Level 4 (04803) Diagnoses Morbid obesity E66.01 ADHD (attention deficit hyperactivity disorder), combined type F90.2
[2023-06-20 08:23] VITALS: BP 142/84; PULSE 103; TEMP 35.4; O2SAT 98; BMI 57.5
== END 2023-06-20 09:19 | disposition home or self-care (01) ==
PROVIDERS: Visit Provider Physician Assistant
DX: E66.01 Morbid (severe) obesity due to excess calories (principal); F90.2 Attention-deficit hyperactivity disorder, combined type
CPT/HCPCS: 99214

== ENCOUNTER → 2023-06-20 08:15 | Outpatient (BNVA) | payer OTHER, SELFPAY | PROVIDERS: Visit Provider Physician Assistant ==

== ENCOUNTER 2023-06-25 08:42 | Outpatient (AMB) | payer OTHER, SELFPAY ==
--- NOTE | 2023-06-25 08:37 | MHC.AMNUTRGE ---
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 Is now feeling much better and ready to resume her routine of 4 days per week She lives alone.? Classes: completed Previous weight loss methods attempted Her goal is to be more active and relieve rashes under pannus. . She reports first being concerned about her weight since puberty. She has tried multiple methods of weight loss including diets and increasing exercise. without permanent results. Highest weight (pounds) 374 Dietary counseling reduction Diagnosis Nutrition problem #1 overweight/obesity As related to (etiology) #1 excess energy intake and physical inactivity As evidenced by (sign/symptom) #1 high BMI Monitoring/Goals Nutrition problem monitoring total energy intake, level of knowledge/skill, total PRO intake, total CHO intake, weight and oral fluids Outcome progress progressing Learning/Education Readiness to learn excellent Stages of change action Educational materials provided Yes Most Recent Diabetes Results: No Data to Display [facility] Surgical History History of placement of ear tubes Hx of wisdom tooth extraction Hx of adenoidectomy Hx of tonsillectomy Family History Mother High cholesterol Obesity Father High cholesterol Obesity Sister Asthma Social History Alcohol intake: current Alcohol intake frequency: holidays/special occasions only Patient Tobacco Use Status: Never used Tobacco Assessment & Plan Assessment & Plan (1) Morbid obesity: Code(s): E66.01 - Morbid (severe) obesity due to excess calories Patient Instructions: Answered all questions today to patient's satisfaction. she will be a great candidate for surgery , she is cleared. She would like to continue nutrition appts for additional support, will be seen again 07/29 a 830-video Telehealth Telehealth Location of provider rendering services: practice address Location of patient: address on file Patient Identification confirmed using: Name, : Yes Telehealth method: video Patient verbally consented to treatment: Yes Patient verbally consented to billing insurance company: Yes Patient informed of any privacy concerns related to visit: Yes Minutes spent on Phone/Video with Pt.: 20 Coding Level of Care Code Nutr Indiv Subseq (06015) Diagnoses Morbid obesity E66.01 Time Spent (min) 20
== END 2023-06-25 08:56 | disposition home or self-care (01) ==
LOC: HO.HBS 08:42
PROVIDERS: Visit Provider Dietitian, Registered
DX: E66.01 Morbid (severe) obesity due to excess calories (principal)

== ENCOUNTER → 2023-06-25 08:42 | Outpatient (BNVA) | payer OTHER, SELFPAY | PROVIDERS: Visit Provider Dietitian, Registered | DX: E66.01 Morbid (severe) obesity due to excess calories (principal); Z71.3 Dietary counseling and surveillance | CPT/HCPCS: 97803 ==

== ENCOUNTER 2023-07-02 13:57 | Outpatient (AMB) | payer OTHER, SELFPAY ==
--- NOTE | 2023-07-02 14:07 | MHC.WMTHER ---
Intake Intake Visit Reasons: VIDEO F/U Allergies No Known Allergies Allergy (Verified 06/20/23 08:21) [facility] Surgical History History of placement of ear tubes Hx of wisdom tooth extraction Hx of adenoidectomy Hx of tonsillectomy Family History Mother High cholesterol Obesity Father High cholesterol Obesity Sister Asthma Social History Alcohol intake: current Alcohol intake frequency: holidays/special occasions only Patient Tobacco Use Status: Never used Tobacco Behavioral Health Assessment Weight Management Therapy Therapy Notes Details Patient discussed some of her difficulties navigating social events, saying no to treats, just feeling all the emotions especially from recent event. Pt described being spoken to on an online platform in a derogatory manner, which has left her feeling hurt and emotional. She has taken action from her place of employment on this matter. Patient was positively reinforced for allowing herself to cry and feel everything that has come up without the use of food as comfort. Practiced being in awareness of her body and needs. Active and supported throughout the session as well as validated. Pt reported that she is looking to have weight loss surgery to help improve her health and quality of life. She struggles to do the things she loves because of her weight. Pt is not in therapy but was in the past. She reported seeking out help for anxiety and depression in the past and was diagnosed with ADHD. Pt has no history of inpatient psychiatric admissions or problems with drugs or alcohol. Presenting Concerns Referral Source provider Reason for referral weight loss surgery evaluation Precipitating Event obesity Living Situation Current Living Situation Other (Patient lives in an apartment on the [facility] [employer] where she works. ) At risk of losing current housing? No Satisfied with current living situation? Yes Comments Patient lives on her own on a college campus. Food/Weight/Diet Expectations of change weight loss and maintenance History/Relationship with food Patient stated that she did not realize she might be an emotional eater. She stated that if she gets taco leo then she will get it everyday that week, same with Celi Maria Michell reported that she was over eating, eating in the car, and then would feel icky after eating. She would often eat out sometimes more than once a day, definitely everyday. Driving off campus to get food was a way for her to get away because she works and lives in the same building. Sometimes would have late dinner and then stay up late. Also would drink lattes from [employer] often. During graduate school she worked at [employer] and would get any drink for free and 7 free meals. History/Relationship with weight Pt stated that since puberty she has been the big girl . After an injury in graduate school she had lost some mobility and was in pain which led to more weight gain. History/Relationship with dieting no prior history of specific diets, has only tried calorie reduction Binge Eating Do you frequently eat large amounts of food in short periods of time, not feeling physically hungry? No Do you feel out of control when you eat a large amount of food in a short period of time? No Do you eat large amounts of food rapidly and typically alone? No Night Eating Do you wake up at least once during the night to eat? No If you wake up in the night, do you find that it is necessary to eat something in order to fall back asleep? No Do you have little or no appetite in the morning and feel very hungry in the evening, often overeating between dinner and when you go to bed? No Social History Family history and relationship Pt is from [place] and went to graduate school in [place]. She now works at [employer]. Pt was raised by her mother and father and younger sister. She reported both parents are overweight. 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 none Education Highest grade completed graduate school counseling degree for higher education (half admin/psychology). Preferred learning style Auditory, Verbal, Written, Learn by doing and Visual Currently enrolled in educational program? No Interested in further educational program? 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 No Meaningful activities reading, nature, sitting by the water Financial Situation Describe current financial situation Comfortable Financial assistance? None Service Service? No Mental Health and Addiction Treatment Current/Past substance abuse? No Current/Past addictive behavior concerns? No Pain Screening Current pain? No Pain in the last few months? No Medications Is the patient compliant with medications? Yes Does the patient have Santo Guardian in place? Not applicable Does the patient use complimentary health approaches? No Trauma/Abuse History History of trauma? No Assessment & Plan Assessment & Plan (1) ADHD (attention deficit hyperactivity disorder), combined type: Code(s): F90.2 - Attention-deficit hyperactivity disorder, combined type (2) Morbid obesity: Code(s): E66.01 - Morbid (severe) obesity due to excess calories Plan Patient is doing very well other than some mindset/small stressors, she has no serious mental health barriers. She is cleared for surgery when ready. Telehealth Telehealth Location of provider rendering services: practice address Location of patient: address on file Patient Identification confirmed using: Name, : Yes Telehealth method: video Patient verbally consented to treatment: Yes Patient verbally consented to billing insurance company: Yes Patient informed of any privacy concerns related to visit: Yes Minutes spent on Phone/Video with Pt.: 45 Coding Level of Care Code Tele Psytx 45 mins (87018) Diagnoses ADHD (attention deficit hyperactivity disorder), combined type F90.2 Morbid obesity E66.01 Time Spent (min) 45
== END 2023-07-02 14:06 | disposition home or self-care (01) ==
LOC: HO.HBST 13:57
PROVIDERS: Visit Provider Counselor Mental Health
DX: F90.2 Attention-deficit hyperactivity disorder, combined type (principal); E66.01 Morbid (severe) obesity due to excess calories
CPT/HCPCS: 90834

== ENCOUNTER → 2023-07-02 13:57 | Outpatient (BNVA) | payer OTHER, SELFPAY | PROVIDERS: Visit Provider Counselor Mental Health ==

== ENCOUNTER 2023-07-17 11:43 | Outpatient (AMB) | payer OTHER, SELFPAY ==
--- NOTE | 2023-07-18 10:15 | A.OFFWM_ITS ---
Intake Intake Visit Reasons: VIDEO BH F/U Allergies No Known Allergies Allergy (Verified 06/20/23 08:21) [facility] Surgical History History of placement of ear tubes Hx of wisdom tooth extraction Hx of adenoidectomy Hx of tonsillectomy Family History Mother High cholesterol Obesity Father High cholesterol Obesity Sister Asthma Social History Alcohol intake: current Alcohol intake frequency: holidays/special occasions only Patient Tobacco Use Status: Never used Tobacco Behavioral Health Assessment Weight Management Therapy Therapy Notes Details Patient talked about recent breakup, hurt she is feeling that the other person does not seem bothered by it. She stated that this was her first relationship as well. She started to notice red flags about the person not caring or having consideration for her and her time. Pt reported that she is looking to have weight loss surgery to help improve her health and quality of life. She struggles to do the things she loves because of her weight. Pt is not in therapy but was in the past. She reported seeking out help for anxiety and depression in the past and was diagnosed with ADHD. Pt has no history of inpatient psychiatric admissions or problems with drugs or alcohol. Presenting Concerns Referral Source provider Reason for referral weight loss surgery evaluation Precipitating Event obesity Living Situation Current Living Situation Other (Patient lives in an apartment on the [facility] where she works. ) At risk of losing current housing? No Satisfied with current living situation? Yes Comments Patient lives on her own on a college campus. Food/Weight/Diet Expectations of change weight loss and maintenance History/Relationship with food Patient stated that she did not realize she might be an emotional eater. She stated that if she gets taco leo then she will get it everyday that week, same with Celi Maria Michell reported that she was over eating, eating in the car, and then would feel icky after eating. She would often eat out sometimes more than once a day, definitely everyday. Driving off campus to get food was a way for her to get away because she works and lives in the same building. Sometimes would have late dinner and then stay up late. Also would drink lattes from [employer] often. During graduate school she worked at [email or web address] and would get any drink for free and 7 free meals. History/Relationship with weight Pt stated that since puberty she has been the big girl . After an injury in graduate school she had lost some mobility and was in pain which led to more weight gain. History/Relationship with dieting no prior history of specific diets, has only tried calorie reduction Binge Eating Do you frequently eat large amounts of food in short periods of time, not feeling physically hungry? No Do you feel out of control when you eat a large amount of food in a short period of time? No Do you eat large amounts of food rapidly and typically alone? No Night Eating Do you wake up at least once during the night to eat? No If you wake up in the night, do you find that it is necessary to eat something in order to fall back asleep? No Do you have little or no appetite in the morning and feel very hungry in the evening, often overeating between dinner and when you go to bed? No Social History Family history and relationship Pt is from [place] and went to graduate school in [place]. She now works at for[employer]. Pt was raised by her mother and father and younger sister. She reported both parents are overweight. 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 none Education Highest grade completed graduate school counseling degree for higher education (half admin/psychology). Preferred learning style Auditory, Verbal, Written, Learn by doing and Visual Currently enrolled in educational program? No Interested in further educational program? 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 No Meaningful activities reading, nature, sitting by the water Financial Situation Describe current financial situation Comfortable Financial assistance? None Service Service? No Mental Health and Addiction Treatment Current/Past substance abuse? No Current/Past addictive behavior concerns? No Pain Screening Current pain? No Pain in the last few months? No Medications Is the patient compliant with medications? Yes Does the patient have Santo Guardian in place? Not applicable Does the patient use complimentary health approaches? No Trauma/Abuse History History of trauma? No Assessment & Plan Assessment & Plan (1) ADHD (attention deficit hyperactivity disorder), combined type: Code(s): F90.2 - Attention-deficit hyperactivity disorder, combined type (2) Morbid obesity: Code(s): E66.01 - Morbid (severe) obesity due to excess calories Plan Patient is doing very well other than some mindset/small stressors, she has no serious mental health barriers. She is cleared for surgery when ready. Telehealth Telehealth Location of provider rendering services: other Location of patient: address on file Patient Identification confirmed using: Name, : Yes Telehealth method: video Patient verbally consented to treatment: Yes Patient verbally consented to billing insurance company: Yes Patient informed of any privacy concerns related to visit: Yes Minutes spent on Phone/Video with Pt.: 40 Coding Level of Care Code Tele Psytx 45 mins (07223) Diagnoses ADHD (attention deficit hyperactivity disorder), combined type F90.2 Morbid obesity E66.01 Time Spent (min) 40
== END 2023-07-18 10:14 | disposition home or self-care (01) ==
PROVIDERS: Visit Provider Counselor Mental Health
DX: F90.2 Attention-deficit hyperactivity disorder, combined type (principal); E66.01 Morbid (severe) obesity due to excess calories
CPT/HCPCS: 90834

== ENCOUNTER → 2023-07-17 11:43 | Outpatient (BNVA) | payer OTHER, SELFPAY | PROVIDERS: Visit Provider Counselor Mental Health ==

== ENCOUNTER 2023-07-24 08:30 | Outpatient (AMB) | payer OTHER, SELFPAY ==
--- NOTE | 2023-07-24 08:36 | A.OFFVIS_ITS ---
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 Is conc erned about potent ial for hair loss post op. Meal pl an: 8:30 - shake - Fairlife or Jhonatan ier RTD 12:30 alte rnates between ano ther shake or bar/ yogurt 3pm- altern ates with 12:30 pr oduct 5:30 - dinne r 6 oz vegetable a nd protein 7:30 - apple and cheese s tick or hb egg Exercise - Uses an brianne Switch with sensors for exerc ise - 30 minutes, 3d/ week for 300 - 370 calories. LS 2 miles - 1-2d/wee k and kwon 320 - 360 calories. Pre op work up comple barron as follows: SW L classes - 05/06 BH appts -05/29, [place] a cleared RD appts - follow up on 06/25, cleared H pylori - negativ e Labs - done, LFT 's normal CXR and ECG - both normal ULS - Liver elasto graphy:? Measureme nsts are consisten t with compensated advanced chronic liver disease. R 15.4, L 12.9 cms ? UGI - minimal refl ux only PFSH Surgical History History of placement of ear tubes Hx of wisdom tooth extraction Hx of adenoidectomy Hx of tonsillectomy Family History Mother High cholesterol Obesity Father High cholesterol Obesity Sister Asthma Social History Alcohol intake: current Alcohol intake frequency: holidays/special occasions only Patient Tobacco Use Status: Never used Tobacco Assessment & Plan Assessment & Plan (1) Morbid obesity: Code(s): E66.01 - Morbid (severe) obesity due to excess calories Plan: Excellent weight loss of 35.4 lbs or 9.8% TBWL over 3 months. Pre op work up is completed and she will have her next appt with Dr Corrales for surgical consultation. Meal plan changes - when needs to buy more protein shakes - purchase Premeir powder and mix shakes with water or UAM. Measure dinner in 12 forks each of protein and vegetables. Exercise - continue same exercises - and focus on 350 - 400 calories burned 5d/ week for 2,000 tracey/week. Patient is still morbidly obese and is not considered stable at this time. I spent 30 minutes in total speaking with the patient via video conference counseling , reviewing records and charting in patients chart. . (2) ADHD (attention deficit hyperactivity disorder), combined type: Code(s): F90.2 - Attention-deficit hyperactivity disorder, combined type (3) Liver disease, chronic: Code(s): K76.9 - Liver disease, unspecified Telehealth Telehealth Location of provider rendering services: practice address Location of patient: address on file Patient Identification confirmed using: Name, : Yes Telehealth method: video Patient verbally consented to treatment: Yes Patient verbally consented to billing insurance company: Yes Patient informed of any privacy concerns related to visit: Yes Coding Level of Care Code Tele Est Pt Level 4 (00127) Diagnoses Morbid obesity E66.01 ADHD (attention deficit hyperactivity disorder), combined type F90.2 Liver disease, chronic K76.9
[2023-07-24 08:38] VITALS: BMI 55.6
== END 2023-07-24 09:02 | disposition home or self-care (01) ==
LOC: HO.HBS 08:55
PROVIDERS: Visit Provider Physician Assistant
DX: E66.01 Morbid (severe) obesity due to excess calories (principal); Z68.43 Body mass index [BMI] 50.0-59.9, adult; F90.2 Attention-deficit hyperactivity disorder, combined type; K76.9 Liver disease, unspecified
CPT/HCPCS: 99214

== ENCOUNTER → 2023-07-24 08:30 | Outpatient (BNVA) | payer OTHER, SELFPAY | PROVIDERS: Visit Provider Physician Assistant ==

== ENCOUNTER → 2023-07-29 08:40 | Outpatient (BNVA) | payer OTHER, SELFPAY | PROVIDERS: Visit Provider Dietitian, Registered | DX: E66.9 Obesity, unspecified (principal); Z71.3 Dietary counseling and surveillance | CPT/HCPCS: 97803 ==

== ENCOUNTER 2023-08-13 08:05 | Outpatient (AMB) | payer OTHER, SELFPAY ==
--- NOTE | 2023-08-13 08:22 | MHC.OFFVISWM ---
Intake VS Expanded 08/13/23 09:31 Height 5 ft 5 in Weight 330 lb 4 oz BMI 55.0 Body Fat % 74.9 Body Fat Mass 247.4 Fat Free Mass 83.2 Visceral Fat Rating 30 Body Water % 17.3 Body Water Mass 57.1 Basal Metabolic Rate/Score 1,182 Intake Visit Reasons: TV Consult/Transfer Gladys Allergies No Known Allergies Allergy (Verified 08/13/23 08:23) Medication List - Last Reconciled 08/13/23 by Krzysztof Zelaya MD atomoxetine (Strattera) 25 mg PO BID norgestimate-ethinyl estradiol 0.18/0.215/0.25 mg-35 mcg (28) 1 tab PO DAILY HPI TV Consult/Transfer Gladys HPI Details Start time: 8.00am, End time: 9am ?I spent 50 minutes speaking with the patient on the phone plus an additional 10 minutes reviewing and updating records for a total of 60 minutes HPI Comments History of Present Illness Details Overall weight loss: 39lbs, or 10.56% TBWL Is doing either two premade Premier or 2 scoops of powdered Premier shakes (2 scoop in almond milk), one OIKOS [place] yogurt or Pure protein bar and one meal (6oz protein and 6oz vegetables) and a bar or an egg with a fruit. Exercise: is doing home treadmill x2/week for 330-350 calories, is doing home exercise videos [facility] Surgical History History of placement of ear tubes Hx of wisdom tooth extraction Hx of adenoidectomy Hx of tonsillectomy Family History Mother High cholesterol Obesity Father High cholesterol Obesity Sister Asthma Social History Alcohol intake: current Alcohol intake frequency: holidays/special occasions only Patient Tobacco Use Status: Never used Tobacco Physical Exam Vital Signs: BMI result Body Mass Index 55.0 Assessment & Plan Assessment & Plan (1) Morbid obesity: Code(s): E66.01 - Morbid (severe) obesity due to excess calories Plan: 1. We discussed the differences between gastric bypass and sleeve gastrectomy and the reasons I believe that sleeve gastrectomy is a better option for her. She is in agreement. Plan for lap sleeve gastrectomy including upper GI endoscopy. All tests has been completed and reviewed and the patient is cleared for the surgery. ?If diaphragmatic or ventral hernias are present at time of surgery, these will be repaired laparoscopically as well. Risks and complications were discussed in detail including possible conversion to an open procedure, anastomotic leak, bleeding requiring transfusion, small bowel obstruction, , DVT and pulmonary embolism, cardiac, or pulmonary complications, as watermelon inspector complications such as anastomotic ulcer, insufficient weight loss and vitamin deficiencies. I emphasized the importance of close follow-up, adherence to instructions and good communication. So far she has proven to be an excellent communicator and very compliant with all our directions accomplishing a great weight loss. I believe that she is an excellent candidate and she is ready. 2. Continue same nutritional plan of two premade Premier or 2 scoops of powdered Premier shakes (2 scoop in almond milk), one OIKOS [place] yogurt or Pure protein bar and one meal (TWELVE FORKS of protein and TWELVE FORKS of vegetables or a salad) and a bar or an egg with a fruit. 3. Replace the measurement of food portions from weight to forkfuls. 4. I emphasized the importance of measuring accurately the food portion and measure it when serving the food in plate 5. The meal portions include 10 full-size forks of meat and 10 full-size forks of salad. You always eat the meat portion but you can replace up to 5 forks for salad/vegetables with rice, potatoes or pasta, or a fruit ?if you like. The less you do it the better weight loss will be. 6. One full-size fork is what it can be scooped on the fork without falling aside and not what can be bit with the fork. Use regular forks like those you find in a typical restaurant. 7. Exercise:Change treadmill with an incline of 2.0 and speed of 3.0. Increase incline by 1 every 3 min to a max incline of 8.0, stay 3min at 8.0 and then return to 2.0 and repeat same steps until calorie goal is met. Goal is to burn 2000 calories per week on exercise, which means either 300 calories daily, or 400 calories 5 days per week, or 500 calories 4 days per week, or 650 calories 3 days per week. (2) ADHD: Code(s): F90.9 - Attention-deficit hyperactivity disorder, unspecified type (3) Liver disease, chronic: Code(s): K76.9 - Liver disease, unspecified Telehealth Telehealth Location of provider rendering services: practice address Location of patient: address on file Patient Identification confirmed using: Name, : Yes Telehealth method: voice only Patient verbally consented to treatment: Yes Patient verbally consented to billing insurance company: Yes Patient informed of any privacy concerns related to visit: Yes Minutes spent on Phone/Video with Pt.: 60 Coding Level of Care Code Tele Est Pt Level 5 (79791) Diagnoses Morbid obesity E66.01 ADHD F90.9 Liver disease, chronic K76.9 Time Spent (min) 60
[2023-08-13 09:31] VITALS: BMI 55.0
== END 2023-08-13 10:01 | disposition home or self-care (01) ==
LOC: HO.HBS 08:05
PROVIDERS: Visit Provider Surgery
DX: E66.01 Morbid (severe) obesity due to excess calories (principal); Z68.43 Body mass index [BMI] 50.0-59.9, adult; F90.9 Attention-deficit hyperactivity disorder, unspecified type; K76.9 Liver disease, unspecified
CPT/HCPCS: 99443

== ENCOUNTER → 2023-08-13 08:05 | Outpatient (BNVA) | payer OTHER, SELFPAY | PROVIDERS: Visit Provider Surgery ==

== ENCOUNTER 2023-08-29 09:18 | Outpatient (AMB) | payer OTHER, SELFPAY ==
--- NOTE | 2023-08-29 07:57 | MHC.AMNUTRGE ---
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 Has been doing excellent , has worked hard on mental preparation and solidifying new habits. Exercise: getting better, I don't hate it anymore , has been sick on/off all season. Is now feeling much better and ready to resume her routine of 5-6 days per week. She lives alone.? Classes: completed her goal is after [place] for bariatric surgery . her mother will come and stay with her after surgery. Previous weight loss methods attempted Her goal is to be more active and relieve rashes under pannus. . She reports first being concerned about her weight since puberty. She has tried multiple methods of weight loss including diets and increasing exercise. without permanent results. Highest weight (pounds) 374 Dietary counseling reduction Diagnosis Nutrition problem #1 overweight/obesity As related to (etiology) #1 excess energy intake and physical inactivity As evidenced by (sign/symptom) #1 high BMI Monitoring/Goals Nutrition problem monitoring total energy intake, level of knowledge/skill, total PRO intake, total CHO intake, weight and oral fluids Outcome progress progressing Learning/Education Readiness to learn excellent Stages of change action Educational materials provided Yes Most Recent Diabetes Results: No Data to Display [facility] Surgical History History of placement of ear tubes Hx of wisdom tooth extraction Hx of adenoidectomy Hx of tonsillectomy Family History Mother High cholesterol Obesity Father High cholesterol Obesity Sister Asthma Social History Alcohol intake: current Alcohol intake frequency: holidays/special occasions only Patient Tobacco Use Status: Never used Tobacco Assessment & Plan Assessment & Plan (1) Morbid obesity: Code(s): E66.01 - Morbid (severe) obesity due to excess calories Plan Patient is cleared from a nutrition standpoint for bariatric surgery.?her plan is to have surgery after [place]. she will be an excellent candidate. Telehealth Telehealth Location of provider rendering services: practice address Location of patient: address on file Patient Identification confirmed using: Name, : Yes Telehealth method: video Patient verbally consented to treatment: Yes Patient verbally consented to billing insurance company: Yes Patient informed of any privacy concerns related to visit: Yes Minutes spent on Phone/Video with Pt.: 30 Coding Level of Care Code Nutr Indiv Subseq ([id number]) Diagnoses Morbid obesity E66.01 Time Spent (min) 20
[2023-08-29 09:06] VITALS: BMI 54.4
== END 2023-08-29 09:24 | disposition home or self-care (01) ==
LOC: HO.HBS 09:18
PROVIDERS: Visit Provider Dietitian, Registered
DX: E66.01 Morbid (severe) obesity due to excess calories (principal)

== ENCOUNTER → 2023-08-29 09:18 | Outpatient (BNVA) | payer OTHER, SELFPAY | PROVIDERS: Visit Provider Dietitian, Registered | DX: E66.01 Morbid (severe) obesity due to excess calories (principal); Z68.43 Body mass index [BMI] 50.0-59.9, adult; Z71.3 Dietary counseling and surveillance | CPT/HCPCS: 97803 ==

== ENCOUNTER 2023-09-01 08:10 | Outpatient (AMB) | payer OTHER, SELFPAY ==
--- NOTE | 2023-09-01 08:46 | A.OFFVIS_ITS ---
Intake VS Expanded 09/01/23 08:56 Height 5 ft 5 in Weight 327 lb 6 oz BMI 54.5 Body Fat % 74.1 Body Fat Mass 242.7 Fat Free Mass 84.8 Visceral Fat Rating 30 Body Water % 17.8 Body Water Mass 58.3 Basal Metabolic Rate/Score 1,201 Intake Visit Reasons: TV Follow Up SWL Allergies No Known Allergies Allergy (Verified 08/13/23 08:23) HPI TV Follow Up SWL HPI Details Start time: 8.40am, End time: 9.10am ?I spent 125 minutes speaking with the patient on the phone plus an additional 5 minutes reviewing and updating records for a total of 30 minutes HPI Comments History of Present Illness Details Overall weight loss: 41.8lbs, or 11.32% TBWL Is doing 2 Premier protein shakes (2 scoops in 8oz water), an OIKOS [place] yogurt, a Pure protein bar, a meal (12 forks of protein and 12 forks of salad or vegetables) and a fruit Exercise: treadmill x3-4/week for 300 calories PFSH Surgical History History of placement of ear tubes Hx of wisdom tooth extraction Hx of adenoidectomy Hx of tonsillectomy Family History Mother High cholesterol Obesity Father High cholesterol Obesity Sister Asthma Social History Alcohol intake: current Alcohol intake frequency: holidays/special occasions only Patient Tobacco Use Status: Never used Tobacco Assessment & Plan Assessment & Plan (1) Morbid obesity: Code(s): E66.01 - Morbid (severe) obesity due to excess calories Plan: 1. Plan for lap sleeve gastrectomy including upper GI endoscopy. All tests has been completed and reviewed and the patient is cleared for the surgery. ?If diaphragmatic or ventral hernias are present at time of surgery, these will be repaired laparoscopically as well. Risks and complications were discussed in detail including possible conversion to an open procedure, anastomotic leak, bleeding requiring transfusion, small bowel obstruction, , DVT and pulmonary embolism, cardiac, or pulmonary complications, as [facility] complications such as anastomotic ulcer, insufficient weight loss and vitamin deficiencies. I emphasized the importance of close follow-up, adherence to instructions and good communication. So far she has proven to be an excellent communicator and very compliant with all our directions accomplishing a great weight loss. I believe that she is an excellent candidate and she is ready. 2. Please change nutritional plan to 2 Premier shakes (2 scoops each in 8oz water), 2 Pure protein bars and a meal (12 forks of protein and 12 forks of salad or vegetables). 3. Use primarily 2 Pure protein bars and a lesss often the [place] yogurt 4. If you want a fruit, reduce the salad portion to 6 forks and have a fruit during dinner. Not outside dinner 5. Change treadmill with an incline of 2.0 and speed of 2.8. Increase incline by 1 every 3 min to a max incline of 8.0, stay 3min at 8.0 and then return to 2.0 and repeat same steps until calorie goal is met. Goal is to burn 2000 calories per week on exercise, which means either 300 calories daily, or 400 calories 5 days per week, or 500 calories 4 days per week, or 650 calories 3 days per week. 6. Send me weight measurements weekly on Mondays Telehealth Telehealth Location of provider rendering services: practice address Location of patient: address on file Patient Identification confirmed using: Name, : Yes Telehealth method: voice only Patient verbally consented to treatment: Yes Patient verbally consented to billing insurance company: Yes Patient informed of any privacy concerns related to visit: Yes Minutes spent on Phone/Video with Pt.: 30 Coding Level of Care Code Tele Est Pt Level 4 (59746) Diagnoses Morbid obesity E66.01 Time Spent (min) 30
[2023-09-01 08:56] VITALS: BMI 54.5
== END 2023-09-01 09:10 | disposition home or self-care (01) ==
LOC: HO.HBS 08:10
PROVIDERS: Visit Provider Surgery
DX: E66.01 Morbid (severe) obesity due to excess calories (principal); Z68.43 Body mass index [BMI] 50.0-59.9, adult
CPT/HCPCS: 99443

== ENCOUNTER → 2023-09-01 08:10 | Outpatient (BNVA) | payer OTHER, SELFPAY | PROVIDERS: Visit Provider Surgery ==

== ENCOUNTER 2023-10-03 08:01 | Outpatient (AMB) | payer OTHER, SELFPAY ==
--- NOTE | 2023-10-03 09:42 | MHC.OFFVISWM ---
Intake VS Expanded 10/03/23 09:43 Height 5 ft 5 in Weight 316 lb BMI 52.6 Body Fat % 71 Body Fat Mass 224.4 Fat Free Mass 91.4 Visceral Fat Rating 30 Body Water % 19.9 Body Water Mass 62.8 Basal Metabolic Rate/Score 1,267 Intake Visit Reasons: TV Pre Op LSG 10/14/23 Allergies No Known Allergies Allergy (Verified 10/03/23 09:45) Medication List - Last Reconciled 10/03/23 by Krzysztof Zelaya MD atomoxetine (Strattera) 25 mg PO BID norgestimate-ethinyl estradiol 0.18/0.215/0.25 mg-35 mcg (28) 1 tab PO DAILY ondansetron 4 mg PO Q12H pantoprazole 40 mg PO DAILY polyethylene glycol 3350 (Miralax) 17 grams PO DAILY sucralfate 10 mL PO BID HPI TV Pre Op LSG 10/14/23 HPI Details Start time: 9.30am, End time: 10am ?I spent 25 minutes speaking with the patient on the phone plus an additional 5 minutes reviewing and updating records for a total of 30 minutes HPI Comments History of Present Illness Details Overall weight loss: 53.4lbs, 14.5% TBWL Is doing 3 Premier protein shakes with one scoop in almond milk and 2 premier with two scoops each in almond milk PFSH Surgical History History of placement of ear tubes Hx of wisdom tooth extraction Hx of adenoidectomy Hx of tonsillectomy Family History Mother High cholesterol Obesity Father High cholesterol Obesity Sister Asthma Social History Alcohol intake: current Alcohol intake frequency: holidays/special occasions only Patient Tobacco Use Status: Never used Tobacco Assessment & Plan Assessment & Plan (1) Morbid obesity: Code(s): E66.01 - Morbid (severe) obesity due to excess calories Plan: 1. Plan for lap sleeve gastrectomy including upper GI endoscopy. All tests has been completed and reviewed and the patient is cleared for the surgery. ?If diaphragmatic or ventral hernias are present at time of surgery, these will be repaired laparoscopically as well. Risks and complications were discussed in detail including possible conversion to an open procedure, anastomotic leak, bleeding requiring transfusion, small bowel obstruction, , DVT and pulmonary embolism, cardiac, or pulmonary complications, as care home complications such as anastomotic ulcer, insufficient weight loss and vitamin deficiencies. I emphasized the importance of close follow-up, adherence to instructions and good communication. So far she has proven to be an excellent communicator and very compliant with all our directions accomplishing a great weight loss. I believe that she is an excellent candidate and she is ready. 2. Preop prescriptions were provided and explained the purpose of each one. Need to be purchased preop. Start Pantoprazole now as you get it from the pharmacy, 1 pill per day. Sucralfate and Zofran are for after surgery as needed. 3. Bowel prep: please do 7 packets ?of Miralax mixing each one with a an 8oz glass of water, crystal light, gatorade zero, or propel ?on 10/12/23 and the same amount on 10/13/23. Continue the protein shakes during? the bowel prep. 4. Needs to purchase 1oz medicine cups . 5. Needs to purchase Children's liquid Tylenol for postop pain control. 6. She needs to stop the control pill as of today. Avoid aspirin, motrin, Advil, Aleve, Ibuprofen, Naproxyn. Tylenol is OK. 7. She needs to purchase the Celebrate 4:1 protein shakes from the hospital's gift shop. 8. Will do basic preop blood work-up any day between Friday10/06/23 and Friday10/10/23 fasting for 12 hours and is scheduled to see the Anesthesiologist prior to the day of surgery. 9. Continue the Strattera until the day before the surgery 10. Importance of adherence to postop folllow-up and recommendations was underscored and she understands that. 11. Continue to food and bars and continue with 3 Premier protein shakes (1 scoop EACH in 8oz almond milk) at 8am-10am, 11am-1pm and 2pm-4pm and TWO more Premier protein shakes with TWO scoops EACH in 8oz of almond milk at 5pm-7pm and 8pm-10pm 12. No soups, broths or V8 13. The patient's?medical?history has been reviewed and they are considered low risk for post op DVT and therefore DVT prophylaxis is not considered necessary. Travel after surgery was reviewed. The patient has not disclosed any travel plans during the first 30 days after surgery and they have been advised that within the first 30 days after surgery any bus, plane, train or car travel over 2 hours in duration is contraindicated due to the possibility of developing blood clots from immobility. Any travel, needs to include periods of ambulation of 10 minutes in duration every 2 hours.? Patient was instructed to discuss any plans for travel during this period with their bariatric surgeon.? 14. Please take at the day of surgery the following medications: NONE 15. Stop any control pills and don't use them for one month after surgery 16. Absolutely no smoking or vaping, or marijuana until the surgery and for at least the first 4 weeks. Only nicotine patches are allowed. 17. Send me weight measurements on 10/09/23 and then on Friday10/14/23 the day of surgery before you go to the hospital. 18. Avoid any steroids by mouth for any reason. Let me know if someone prescribes them to you 19. These instructions supersede anything else you read in the handbook, anything you watched in videos or classes or you were told by any other provider. If there is any conflict, you follow the above instructions and nothing else. Orders: Orders Prothrombin Time INR Today E66.01 - Morbid (severe) obesity due to excess calories C Reactive Protein Today E66.01 - Morbid (severe) obesity due to excess calories Hemoglobin A1c Today E66.01 - Morbid (severe) obesity due to excess calories Insulin Today E66.01 - Morbid (severe) obesity due to excess calories Comprehensive Met. Panel Today E66.01 - Morbid (severe) obesity due to excess calories TSH reflex Free T4 Today E66.01 - Morbid (severe) obesity due to excess calories Type and Screen Today E66.01 - Morbid (severe) obesity due to excess calories Partial Thromboplastin Time Today E66.01 - Morbid (severe) obesity due to excess calories Lipid Panel Today E66.01 - Morbid (severe) obesity due to excess calories Complete Blood Count Auto Diff Today E66.01 - Morbid (severe) obesity due to excess calories Medications: New sucralfate 10 mL PO BID 600 mL 2RF K21.9 - Gastro-esophageal reflux disease without esophagitis polyethylene glycol 3350 (Miralax) Mix each packet with 8oz of water, Crystal light, or Gatorade zero, or Propel and do 7 packets on 10/12/23 and another 7 packets on 10/13/23 17 grams PO DAILY 14 ea 0RF Z01.818 - Encounter for other preprocedural examination pantoprazole 40 mg PO DAILY 90 tabs 0RF K21.9 - Gastro-esophageal reflux disease without esophagitis ondansetron Only take one every 12 hours as needed if you have nausea 4 mg PO Q12H 20 tabs 0RF nausea and vomiting R11.0 - Nausea Telehealth Telehealth Location of provider rendering services: practice address Location of patient: address on file Patient Identification confirmed using: Name, : Yes Telehealth method: voice only Patient verbally consented to treatment: Yes Patient verbally consented to billing insurance company: Yes Patient informed of any privacy concerns related to visit: Yes Minutes spent on Phone/Video with Pt.: 30 Coding Level of Care Code Tele Est Pt Level 4 (08513) Diagnoses Morbid obesity E66.01 Time Spent (min) 30
[2023-10-03 09:43] VITALS: BMI 52.6
== END 2023-10-03 10:01 | disposition home or self-care (01) ==
LOC: HO.HBS 08:01
PROVIDERS: Visit Provider Surgery
DX: E66.01 Morbid (severe) obesity due to excess calories (principal); Z68.43 Body mass index [BMI] 50.0-59.9, adult
CPT/HCPCS: 99024

== ENCOUNTER → 2023-10-03 08:01 | Outpatient (BNVA) | payer OTHER, SELFPAY | PROVIDERS: Visit Provider Surgery ==

== ENCOUNTER 2023-10-14 05:57 | Inpatient (IN) | payer OTHER, SELFPAY ==
[2023-10-08 12:14] VITALS: BMI 52.6
[2023-10-09 08:40] LABS: MANUAL DIFF FLAG NO
[2023-10-09 09:02] LABS: Basophils Absolute Auto 0.1 X10*3/uL (0.0-0.2); Basophils Percent Auto 0.8 % (0-2); Eosinophils Absolute Auto 0.3 X10*3/uL (0.0-0.4); Eosinophils Percent Auto 3.5 % (0-4); Hematocrit 41.8 % (37.0-47.0); Hemoglobin 13.2 g/dl (12.0-16.0); Imm Gran Abs Auto 0.02 X10*3/uL (0.00-0.03); Imm Gran Pct Auto 0.3 % (0.0-0.4); Lymphocytes Absolute Auto 2.1 X10*3/uL (1.2-4.9); Lymphocytes Percent Auto 26.1 % (20-40); Mean Corpuscular HGB Conc 31.6 g/dl (31.0-35.0); Mean Corpuscular Hemoglobin 24.5 pg (27.0-33.0); Mean Corpuscular Volume 77.6 fL (80.0-98.0); Mean Platelet Volume 10.1 fL (9.4-12.3); Monocytes Absolute Auto 0.6 X10*3/uL (0.1-1.2); Monocytes Percent Auto 7.7 % (2-11); Neutrophils Absolute Auto 4.9 x10*3/uL (2.0-8.3); Neutrophils Percent Auto 61.6 % (45-73); Platelet Count 516 X10*3/uL (160-400); Red Blood Count 5.39 X10*6/uL (4.20-5.50); Red Cell Distribution Width 15.7 % (11.0-16.0); White Blood Count 7.9 X10*3/uL (4.8-10.8)
[2023-10-09 09:06] LABS: INTERNATIONAL NORM RATIO 1.1 (0.9-1.1); Prothrombin Time 12.9 SEC (11.1-13.3)
[2023-10-09 09:08] LABS: Partial Thromboplastin Time 42.6 SEC (26.0-36.4)
[2023-10-09 09:11] LABS: Estimated Average Glucose 94 mg/dL; Hemoglobin A1c % 4.9 % (<6.0)
[2023-10-09 09:32] LABS: Alanine Aminotransferase 25 U/L (0-31); Albumin Level 4.2 g/dL (3.5-5.0); Alkaline Phosphatase 116 U/L (39-117); Anion Gap 17 (12-20); Aspartate Amino Transferase 19 U/L (5-31); Bilirubin Total 0.4 mg/dL (0.0-1.0); Blood Urea Nitrogen 14 mg/dL (9-16); C Reactive Protein 2.96 mg/dL (< or = 0.50); Calcium 9.9 mg/dL (8.4-10.2); Carbon Dioxide 22 mmol/L (22-29); Chloride 106 mmol/L (96-108); Cholesterol 170 mg/dL (<200); Estimated Glomerular Filt Rate > 60; Glucose Random 86 mg/dL (60-115); HDL Cholesterol 31 mg/dL (>40); LDL Cholesterol Calculated 116 mg/dL (<100); Potassium 4.1 mmol/L (3.3-5.1); Sodium 141 mmol/L (135-145); Total Protein 7.8 g/dL (6.5-8.0); Triglycerides 116 mg/dL (<150)
[2023-10-09 09:48] LABS: Insulin 21 uU/mL (2-29); TSH reflex Free T4 2.14 uIU/mL (0.32-4.0)
--- NOTE | 2023-10-10 23:16 | MHC.SHP ---
Pre-Procedural Eval Section A Date of Service: 10/10/23 The patient is an INPATIENT: Yes The History & Physical has been completed within 30 days and I have reviewed it.: Yes Section B Chief Complaint: obesity Details of Present Illness: morbid obesity Relevant Family History (Specify if Yes): No Relevant Social History: None Present Medications: None Medical History: No relevant PMH History of Previous Operations: No relevant previous surgery Allergies: Allergies Allergy/AdvReac Type Severity Reaction Status Date / Time No Known Allergies Allergy Verified 10/03/23 09:45 Review of Systems Sugical H&P ROS: Negative: Constitution, Cardiovascular, Respiratory, Neurological, Psychiatric, Hem-Onc, Allergic/Immunologic, Gastrointestinal, Genitourinary, Musculoskeletal, Integumentary, Endocrine and Eyes/Ears/Nose/Throat Exam Surgical H&P Exam: Normal: HEENT, Normal: Heart, Normal: Lungs, Normal: Extremities, Normal: Abdomen, Normal: Skin and Normal: Neurological Plan Diagnosis/Plan: Unchanged I have reviewed the history and physical and performed a pertinent physical examination on my patient. No changes have occurred unless specified. Time Spent With Patient Time: Total time managing care of this patient today ____ minutes.
--- NOTE | 2023-10-13 08:55 | P.CONAN_ITS ---
Documented by User: Marilia Lux NP 10/13/23 08:56 HPI - Anesthesia Eval Consult details Narrative: 27yo F for Gastrectomy Sleeve,EGD,poss diaphragmatic hernia,poss ventral hernia,poss open, PMFSH Active Problems Active Problems: All Active Problems (Updated 10/08/23 @ 12:14 by Elizabeth Ferguson RN) ADHD (attention deficit hyperactivity disorder), combined type (Acute) Liver disease, chronic (Acute) Pre-op evaluation (Acute) ADHD (Acute) Morbid obesity (Acute) Past Medical History Medical History Fatty liver ADHD (attention deficit hyperactivity disorder) Family History Family History Mother High cholesterol Obesity Father High cholesterol Obesity Sister Asthma Surgical History Surgical History History of placement of ear tubes Hx of wisdom tooth extraction Hx of adenoidectomy Hx of tonsillectomy Social History Social History Are you a primary progressive care unit registered nurse to a significant other at home: No Do you presently have visiting nurse or other home services: No Alcohol intake: current Alcohol intake frequency: former alcohol drinker Patient Tobacco Use Status: Never used Tobacco Substance Use Type Other:: none since 08/2023-alcohol or marijuana Have you been hit, kicked, punched, or otherwise hurt by someone within the past year? If so, by whom?: No Are you DNR?: No Advance Directives: No (mother is primary copntact) Advance Directives Information Provided: No Advance Directives on File: No Recently lost weight without trying: No Eating poorly because of decreased appetite: No Nutrition Risks: No Nutritional Risk Patient : No FDLMP: 09/30/23 : No Poor oral hygiene: No Meds Allergies Allergy/AdvReac Type Severity Reaction Status Date / Time No Known Allergies Allergy Verified 10/14/23 06:23 Home Medications Medication Instructions Recorded Confirmed Last Taken Type atomoxetine 25 mg capsule 25 mg PO BID 05/29/23 10/14/23 10/07/23 History (Strattera) norgestimate-ethinyl estradiol 1 tab PO DAILY 08/13/23 10/14/2309/30/24 History 0.18 mg/0.215mg/0.25mg-35 mcg(28)tablet pantoprazole 40 mg tablet,delayed 40 mg PO DAILY@0630 10/14/23 10/14/23 10/13/23 History release Exam Height,Weight and Vital Signs: Height 5 ft 5 in Weight 143.335 kg Pertinent Lab Results Pertinent Lab Results: Laboratory Tests 10/09/23 10/09/23 08:26 08:39 WBC 7.9 RBC 5.39 Hgb 13.2 Hct 41.8 MCV 77.6 L MCH 24.5 L MCHC 31.6 RDW 15.7 Plt Count 516 H MPV 10.1 Immature Gran % (Auto) 0.3 Neut % (Auto) 61.6 Lymph % (Auto) 26.1 [place] % (Auto) 7.7 Eos % (Auto) 3.5 Baso % (Auto) 0.8 Lymph # (Auto) 2.1 [place] # (Auto) 0.6 Eos # (Auto) 0.3 Baso # (Auto) 0.1 Abs Immat Gran (auto) 0.02 Absolute Neuts (auto) 4.9 Absolute Nucleated RBC 0.000 Nucleated RBC % (auto) 0.0 PT 12.9 INR 1.1 APTT 42.6 H Sodium 141 Potassium 4.1 Chloride 106 Carbon Dioxide 22 Anion Gap 17 BUN 14 Creatinine 0.69 Estim Creat Clear Calc 180.0 Estimated GFR > 60 Random Glucose 86 Estimat Average Glucose 94 Hemoglobin A1c % 4.9 Insulin Level 21 Calcium 9.9 Total Bilirubin 0.4 AST 19 ALT 25 Alkaline Phosphatase 116 C-Reactive Protein 2.96 H Total Protein 7.8 Albumin 4.2 Triglycerides 116 Cholesterol 170 LDL Cholesterol, Calc 116 H HDL Cholesterol 31 L TSH 2.14 Blood Type O Negative Antibody Screen NEGATIVE Narrative Narrative: EKG 04/2023 Vent. Rate : 083 BPM Atrial Rate : 083 BPM P-R Int : 136 ms QRS Dur : 078 ms QT Int : 364 ms P-R-T Axes : 057 047 041 degrees QTc Int : 427 ms Normal sinus rhythm Normal ECG No previous ECGs available Assessment and Plan Assessment Anesthesia Assessment: Chart Reviewed Documented by User: Fartun Kilgore MD 10/14/23 07:56 [facility] Past Medical History Medical History Fatty liver ADHD (attention deficit hyperactivity disorder) Family History Family History Mother High cholesterol Obesity Father High cholesterol Obesity Sister Asthma Surgical History Surgical History History of placement of ear tubes Hx of wisdom tooth extraction Hx of adenoidectomy Hx of tonsillectomy Social History Social History Are you a primary progressive care unit registered nurse to a significant other at home: No Do you presently have visiting nurse or other home services: No Alcohol intake: current Alcohol intake frequency: former alcohol drinker Patient Tobacco Use Status: Never used Tobacco Substance Use Type Other:: none since 08/2023-alcohol or marijuana Have you been hit, kicked, punched, or otherwise hurt by someone within the past year? If so, by whom?: No Are you DNR?: No Advance Directives: No (mother is primary copntact) Advance Directives Information Provided: No Advance Directives on File: No Recently lost weight without trying: No Eating poorly because of decreased appetite: No Nutrition Risks: No Nutritional Risk Patient : No FDLMP: 09/30/23 : No Poor oral hygiene: No Meds Allergies Allergy/AdvReac Type Severity Reaction Status Date / Time No Known Allergies Allergy Verified 10/14/23 06:23 Home Medications Medication Instructions Recorded Confirmed Last Taken Type atomoxetine 25 mg capsule 25 mg PO BID 05/29/23 10/14/23 10/07/23 History (Strattera) norgestimate-ethinyl estradiol 1 tab PO DAILY 08/13/23 10/14/23 09/30/23 History 0.18 mg/0.215mg/0.25mg-35 mcg(28)tablet pantoprazole 40 mg tablet,delayed 40 mg PO DAILY@0630 01/10/14/23 10/13/23 History release Exam Airway Mallampati Class: III TM Dist: >3cm Neck ROM: Full Loose/Missing/Broken Teeth: No Heart: RRR Lungs: CTA Assessment and Plan Final Anesthetic Review NPO: Yes ASA Class: III Final Preanesthetic Review: Meds/Allgs Chart Reviewed, Consent Obtained/Reviewed and Anes Risks/Benef Reviewed Patient Risk: Intermediate Procedure Risk: Intermediate Anesthetic Plan Anesthetic Plan: GA Disposition: Standard PACU
[2023-10-14] VITALS (16 sets, daily range): BP systolic 120–145; BP diastolic 82–101; PULSE 71–97; RESP 13–18; TEMP 35.9–36.6; O2SAT 92–100; BMI 52.7
[2023-10-14 06:31] LABS: UPreg QC Valid YES; Urine Pregnancy NEGATIVE (NEGATIVE)
[2023-10-14] MEDS: Lactated Ringers 1,000 ML 100 ML IVCONT ×3 (06:59→20:14)
[2023-10-14] MEDS: Aprepitant 32 MG/4.4 ML VIAL IVPUSH (06:59)
--- NOTE | 2023-10-14 07:38 | P.BOP_ITS ---
Brief Operative Note Date of Service: 10/14/23 Pre-op diagnosis: Morbid obesity with comorbidities (see below) Post-op diagnosis: same Procedure: INITIAL PATIENT BMI ON PRESENTATION AT OUR OFFICE: 61.3 kg/m2 LAST BMI BEFORE SURGERY: 52.6 kg/m2 COMORBIDITIES: ADHD, GERD, liver fibrosis ?The patient presented to the Weight Management Program with significant obesity that was negatively impacting the patient's comorbidities as listed above.? The program is a phased program with a special focus on preoperative medical weight management to promote substantial weight loss and prepare the patients for the second phase of the program: bariatric surgery. The patient participated in an intensive weekly lifestyle ?intervention and exercise program during which the patient ?has lost between the initial office visit and the last preoperative visit 57.2lbs, or 15.48% of initial actual body weight. It was deemed appropriate for the patient to now have bariatric surgery. In light of the current Covid-19 pandemic and the well documented strong association of obesity and increased risk of worse outcomes if infected with Covid-19 (REFERENCES: https://pubmed.ncbi.nlm.nih.gov/51776185/ ,? https://pubmed.ncbi.[facility].nih.gov/53194950/ ), any delay in undergoing bariatric surgery may lead to the patient's worsening health condition and increased?risk of more severe Covid-19 disease if infected. In addition a recent?study from [facility] published in [facility] on 09/24/2021 ([email or web address]) found that, among patients with obesity, substantial weight loss achieved with surgery was associated with improved outcomes of COVID-19 infection. The findings suggest that obesity can be a modifiable risk factor for the severity of COVID-19 infection. In addition, the patient met the BMI-criteria for bariatric surgery based on the BMI on initial presentation. The patient should not be penalized for achieving such weight loss because ?it is not sustainable long-term without surgical intervention and it was achieved in preparation for bariatric surgery ?under my direction and based on my published research (file:// [email or web address]).pdf and? https://www.soard.org/article/N4200-8589(27)29571-X/pdf ) ?that a 10% preoperative weight loss improves long-term weight loss after surgery and reduces perioperative complications.? Insurance carriers such as [facility] have endorsed my recommendations ?and have included in their policies criteria to include a 10% preoperative weight loss requirement. PROCEDURE: Esophago-gastroscopy laparoscopic sleeve gastrectomy and laparoscopic gastropexy INDICATIONS: This is a 27 year-old female who was electively scheduled for lapa roscopic, possibly open sleeve gastrectomy. The risks and complications of the procedure were discussed with the patient in advance, particularly the possibility of ; pulmonary embolism; staple line leak; bleeding; GERD; cardiac, pulmonary, or renal complications; as well as long-term problems such as insufficient weight loss, vitamin deficiency, strictures, or ulcers. The patient understood all the risks, and was in agreement to proceed with surgery. DESCRIPTION OF PROCEDURE: After informed consent was obtained from the patient, the patient was given preoperative antibiotics, and was transferred to the operating room. After successful induction of general anesthesia, pneumatic compression devices were placed on both lower extremities. An upper endoscopy was performed next. The oropharynx and esophagus appeared to be within normal limits. There was no diaphragmatic hernia present consistent with the findings of the preoperative upper GI. The stomach was entered. Then after all fluid and air were suctioned and the stomach was fully decompressed, the scope was withdrawn and secured in the mid esophagus. The patient was then prepped and draped in the usual sterile manner, and abdominal access was established at the right upper quadrant with the Cee technique. A 12 mm blunt port was inserted, and the abdomen was insufflated with CO2 to a pressure of 15 mmHg. Under direct visualization, additional ports were placed, specifically two 5 mm Versi-step ports to the left upper quadrant, and a 5 mm Versi-Step port to the right upper quadrant. 1% lidocaine plain was used to infiltrate all port sites as well as all fascia defects. Using the EndoClose suture passer device, I placed a #1 Polysorb tie across the falciform ligament in order to retract it up against the abdominal wall and prevent injury of the ligament with our instruments during the procedure. Following that, the patient was placed in a steep reverse Trendelenburg position. An additional 5 mm port was placed to the right flank for the Mediflex retractor that was used to retract the left lobe of the liver. The gastro-esophageal fat pad was opened with the ultrasonic device (Thunderbeat, Olympus) and the anterior esophagus and hiatus were exposed. The angle of His was opened with the ultrasonic device the fundus of the stomach from any diaphragmatic and splenic attachments. I then opened the gastrocolic ligament between the transverse colon and the greater curvature of the stomach with the ultrasonic device to enter the lesser sac and facilitate the ligation of the short gastric vessels. I started at a mid-point along the greater curvature and using the Thunderbeat, all short gastric vessels were divided all the way to the angle of His until the left akin was completely dissected at its entirety. I then divided the gastro-colic ligament distally to a distance of about 3-4 cm proximal to the pylorus. The stomach was then divided transversely with one Endo JAYDEN-45 purple and four JAYDEN-60 articulating purple loads using the SIGNIA stapler and loads. Every effort was made that the gastric sleeve had a tubular shape and an even caliber throughout. Once the sleeve resection was completed, the staple line of the gastric sleeve was reinforced with Hemoclips. The resected stomach was retrieved without difficulty from the Cee port. A gastropexy was then performed in order to prevent postoperative GERD and partial gastric volvulus. Several interrupted 2.0 Surgidac sutures were placed between the sleeve's staple line and the previously divided greater omentum and gastro-colic ligament using the Endo-Stitch device. ?An upper endoscopy was performed. There was no narrowing at the GE junction. The scope was easily advanced all the way to the pylorus which was clearly visualized. There was no narrowing anywhere and the sleeve's caliber was even throughout. The sleeve's staple line was inspected and there was no evidence of ischemia, bleeding or dehiscence. At that point the gastroscope was withdrawn from the patient?s mouth while we were decompressing the bowel and the stomach from any remaining air. I looked into the lesser sac to see how the sleeve was situating and it was situating well. There was no bleeding from the staple line, spleen, or short gastric vessels. The Mediflex retractor was removed, and the undersurface of the liver was inspected and there was no bleeding. The patient was placed in supine position. I closed the fascial defect of the 12 mm port site with a figure of eight #1 Polysorb suture. Then 30cc Ropivacaine plain with 10 mg of Dexamethasone were used to infiltrate the fascial closure as well as all skin incisions. At this point, the abdomen was deflated, all ports were removed under direct vision, and no bleeding was noted from any of the port sites. The skin incisions were irrigated with saline and were closed with 4-0 absorbable monofilament sutures. Steri-Strips and OpSites were used to cover all incisions. The patient was extubated and was transferred in stable condition to the recovery room for further care. I was present and performed all madrid parts of the procedure. Mr Hartley was the first aid officer. There were no residents to assist with this case. Dionicio Zelaya MD, PhD, FACS Surgeon: Krzysztof Zelaya MD Anesthesia: GETA, local and other (TAP block) Was an Chucking Machine Operator used for this Procedure?: No Chucking Machine Operator: Glenn Hartley Estimated blood loss (mL): 10 IV fluids (mL): 2,000 Urine output (mL): 0 (No Reagan to record output) Pathology: other (Stomach) Condition: stable Disposition: PACU
--- NOTE | 2023-10-14 07:41 | PM.PNGS ---
Subjective Subjective Date of Service: 10/15/23 Interval history: Feels well. Mild incisional pain. She is tolerating phase 1 bariatric diet Physical Exam Vital Signs: Vital Signs: Last Vital Signs Temp 97.5 F 10/14/23 06:26 Pulse 97 10/14/23 06:26 Resp 16 10/14/23 06:26 BP 135/83 10/14/23 06:26 Pulse Ox 97 10/14/23 06:26 O2 Del Method Room Air 10/14/23 06:26 BMI result Body Mass Index 52.7 GI: Inspection: Yes normal to inspection, Yes incision (clean, dry and intact) and Yes obesity Palpation (GI): Soft to palpation Extrem: Right lower extremity: normal to inspection (no calf tenderness) Left lower extremity: normal to inspection (no cafl tenderness) Objective Data Active Medications Lactated Ringer's (Lr) 1,000 mls @ 100 mls/hr IVCONT .Q10H [facility] Last Admin: 10/14/23 06:59 Dose: 100 mls/hr Documented By: ELIZA Lactated Ringer's (Lr) 1,000 mls @ 999 mls/hr IV .Q1H1M [facility] Stop: 10/14/23 08:00 Labs 10/14/23 10:18 10/14/23 10:18 Labs: Laboratory Results - last 24 hr 10/14/23 06:07 Urine Test NEGATIVE Procedures Date of Service Date of Service: 10/15/23 Progress Note: A&P Assessment and plan (1) Morbid obesity: Status: Acute Assessment and Plan: s/p laparoscopic sleeve gastrectomy and gastropexy Doing well Will check am labs and if OK the patient will be discharged home (2) ADHD: Status: Acute (3) Liver fibrosis: Status: Acute (4) GERD (gastroesophageal reflux disease): Status: Acute (5) S/P laparoscopic sleeve gastrectomy: Status: Acute Time Spent With Patient Time: Total time managing care of this patient today ____ minutes. Quality Stroke Does the patient have a stroke diagnosis?: No VTE Prior VTE?: No VTE Risk Level:: Surgical - moderate VTE Device Contraindication: N/A - Device Ordered VTE Drug Contraindication: Treatment Not Indicated
--- NOTE | 2023-10-14 07:54 | PHA.MEDREC ---
Pharmacy Consult ? Medication Reconciliation Pharmacy has completed the medication reconciliation. Reviewed med rec done by nursing (Shana).
--- NOTE | 2023-10-14 09:55 | PM.DS ---
DS: Providers Provider Date of Service: 10/15/23 Date of admission: 10/14/23 05:57 Primary care physician: None Physician DS: Diagnosis Discharge Diagnosis (1) Morbid obesity: Status: Acute (2) ADHD: Status: Acute (3) Liver fibrosis: Status: Acute (4) GERD (gastroesophageal reflux disease): Status: Acute DS: Summary Hospital Course Hospital Course: ADMITTING DIAGNOSIS: morbid obesity, ADHD ? DISCHARGE DIAGNOSIS: same, s/p laparoscopic sleeve gastrectomy ? PAST SURGICAL HISTORY: tonsillectomy, adenoidectomy ? PROCEDURE: upper endoscopy, laparoscopic sleeve gastrectomy ? DISCHARGE SUMMARY: ? History of Present Illness: ? The patient is a?27 year-old woman with a BMI of?61.5 kg/m2 and associated co-morbidities as described above. The patient had extensive work-up,lost?54.2 lbs preoperatively and was electively scheduled for laparoscopic, possible open sleeve gastrectomy and gastropexy. Risks and complications of the surgery were discussed with the patient in advance, particularly the possibility of , pulmonary embolism, anastomotic leak, bleeding, bowel injury, GERD, cardiac, renal or pulmonary complications. The patient understood all the risks and was in agreement with the surgical plan. ? Hospital Course: ? The patient underwent an uneventful laparoscopic sleeve gastrectomy with gastropexy on the day of admission. Postoperatively, the patient was transferred to the surgical floor. The patient received IV Acetaminophen and IV dilaudid for pain control. Patient was started on bariatric phase 1 diet POD #0. On postoperative day one, the patient was feeling well without nausea, vomiting, fevers, or tachycardia. The patient had some mild incisional pain and the abdomen was soft. ? On the morning of postoperative day one, the patient was continued on 1 ounce of water or ice every half hour. During the day, the patient did fairly well, having some incisional pain, but able to ambulate adequately and to tolerate liquids well. ? Since the patient is doing well, we decided that the patient was ready to be discharged. The patient was given instructions to follow-up with me next week and to call my office for any fever over 101, persistent abdominal pain, nausea, vomiting, GERD, symptoms of DVT such as calf tenderness, or leg swelling, or pulmonary embolism such as chest pain or shortness of breath. The patient was also instructed to drink 40-60 ounces of liquids per day using the 1-ounce cups. The patient had been given prescriptions for Tylenol for pain, Zofran prn for nausea, and pantoprazole and carafate previously. The patient was encouraged to ambulate and use the incentive spirometer. The patient was allowed to shower, but no baths, and encouraged to stay active at home. All of these instructions were given to the patient personally. All questions were answered and the patient understood all instructions, the instructions were also given to the patient in print. Time Attestation Discharge coordination time: Less than 30 minutes Quality: Safe Use of Opioids Does Pt have an Active Cancer Diagnosis on the Problem List?: No Quality: Stroke Does the patient have a stroke diagnosis?: No Physical Exam Vital Signs: Vital Signs: Last Vital Signs Temp 97.5 F 10/14/23 06:26 Pulse 97 10/14/23 06:26 Resp 16 10/14/23 06:26 BP 135/83 10/14/23 06:26 Pulse Ox 97 10/14/23 06:26 O2 Del Method Room Air 10/14/23 06:26 BMI result Body Mass Index 52.7 DS: Data Data Completed and Pending Pending studies at discharge: Pending at discharge 10/14/23 09:03 Surgical [PTH] Routine 10/14/23 09:25 Surgical [PTH] Routine Labs on day of discharge: Laboratory Results - last 24 hr 10/14/23 06:07 Urine Test NEGATIVE Discharge Plan Discharge Anticipated Discharge Date/Time: 10/15/23 10:00 Patient Disposition: Home, Self-Care Discharge Diagnosis: s/p laparoscopic sleeve gastrectomy Referrals: Physician,None [Primary Care Provider] - 1 Week Discharge Medications: Continued atomoxetine [Strattera] 25 mg capsule 25 mg PO BID pantoprazole 40 mg tablet,delayed release (DR/EC) 40 mg PO DAILY@0630 sucralfate 100 mg/mL suspension 10 ml PO BID Qty: 600 2RF ondansetron 4 mg tablet,disintegrating 4 mg PO Q12H Qty: 20 0RF Rx Instructions: Only take one every 12 hours as needed if you have nausea Held norgestimate-ethinyl estradiol 0.18/0.215/0.25 mg-35 mcg (28) tablet 1 tab PO DAILY Hold Instructions: until discussed with Dr Zelaya Discharge Orders: Discharge Order (Routine); Ordered 10/15/23 Ordered By: Krzysztof Zelaya Activity on Discharge: No heavy lifting Stand Alone Forms: Patient Portal Discharge page Care Plan Goals: weight loss Health Concerns: morbid obesity Plan of Treatment: No tub baths, sex or returning to work until discussed at first post op appointment. No exercise, alcohol, tobacco or illegal drug use. Continue to use incentive spirometer hourly while awake. Walk in home for 5- 10 minutes every 2 hours during the first week. Follow all instructions in the bariatric handbook and call with any questions.Discharge Instructions 1. Please call your doctor or come back to the emergency room should any new symptoms arise. 2. You will receive a courtesy call from [facility] 24-48 hours after discharge. 3. Activity: abstain from alcohol, practice limited stair climbing, no bending, no driving, no exercise, no illicit substances, no lifting, no sex, no tub bath, no work. 4. Diet: continue as discussed with Dr. Zelaya. 5. Dressing Change/Wound Care: Your incision is covered by clear bandages and guaze underneath. If the area is tender, you may apply an ice pack for short intervals (no more than 20 minutes on, followed by at least 20 minutes off). Do not apply heat. Do not use creams, lotions, or topical antibiotics unless instructed to do so by your surgeon. These can cause infection or allergic reaction. 6. Call your doctor if: - Your temperature exceeds 101.5 F - You experience excessive pain or swelling - You have an unexpected reaction to medication - You have excessive bleeding - You experience continued vomiting/nausea - Your incision begins to separate - Your incision shows signs of infection such as increased redness, swelling, excessive pain, heat, or drainage (light blood or clear fluid is normal) 7. General instructions: No lifting greater than 5 lbs for 1 week and not more than 20lbs the next 3?weeks. No driving until seen at the office in 5-7 days after surgery. If you do not move your bowels in the next 2 days, please tell?Dr. Zelaya. Please walk around your home every hour or two to prevent blood clots from forming in your legs. You do not need to wake from sleeping to walk. Please sleep in a bed or couch to prevent kinking at the hips and knees. Please take your incentive spirometer (your lung tree shear operator) home with you and use it for the next few days to prevent pneumonia. You may shower, no hot tubs, baths or swimming pools.?Please follow the post op diet instructions you are?given by Dr Zelaya? and text me daily at 5-6pm for an update.?If you have any issues or concerns or questions please communicate this to him via text.? The Celebrate shamagui have all of the bariatric vitamins you need if you consume these shakes. If you are drinking other protein shakes, you will need to purchase the Celebrate multivitamins and calcium that are available in the hospital gift shop on the first floor of the main hospital.??Do not take anything without first discussing with Dr Zelaya. Please make sure you are consuming at least 40 ounces of fluids per day starting the?day AFTER your discharge from the hospital. Always drink 1-2 ml per minute using the 5ml?syringe. If you drink faster you may experience?bloating,?gas pain, burping, nausea or heartburn. In that case please slow down your pace and use the syringe to?understand better the?proper?pace and volume of drinking. Do not hesitate to contact the office with any questions at . The patient's medical history has been reviewed and they are considered low risk for post op DVT and therefore DVT prophylaxis is not considered necessary. Travel after surgery was reviewed. The patient has not disclosed any travel plans during the first 30 days after surgery and they have been advised that within the first 30 days after surgery any bus, plane, train or car travel over 2 hours in duration is contraindicated due to the possibility of developing blood clots from immobility. Any travel, needs to include periods of ambulation of 10 minutes in duration every 2 hours.? The patient was instructed to discuss any plans for travel during this period with their bariatric surgeon. Assessment: stable s/p laparoscopic sleeve gastrectomy Discharge Date/Time: 10/15/23 09:29
[2023-10-14] MEDS: HYDROmorphone HCl 0.5 MG/0.5 ML SYRINGE 0.25 MG IVPUSH ×2 (10:21→10:28)
[2023-10-14 10:28] LABS: Hemoglobin 12.4 g/dl (12.0-16.0)
[2023-10-14 10:39] LABS: Anion Gap 16 (12-20); Blood Urea Nitrogen 16 mg/dL (9-16); Calcium 9.8 mg/dL (8.4-10.2); Carbon Dioxide 23 mmol/L (22-29); Chloride 103 mmol/L (96-108); Creatinine Clr Calc Pharmacy 161.7; Estimated Glomerular Filt Rate > 60; Glucose Random 129 mg/dL (60-115); Sodium 138 mmol/L (135-145)
[2023-10-14] MEDS: ceFAZolin Sodium/Dextrose,Iso 2 GM/50 ML PIGGYBACK IV (13:40)
[2023-10-14] MEDS: Acetaminophen 1,000 MG/100 ML PIGGYBACK 16.7 MG IV ×2 (15:26→20:10)
[2023-10-14] MEDS: Famotidine/PF 20 MG/2 ML VIAL IVPUSH (20:10)
[2023-10-14] MEDS: 0.9 % Sodium Chloride Flush 3 ML SYRINGE IVFLUSH (20:11)
[2023-10-15] MEDS: Acetaminophen 1,000 MG/100 ML PIGGYBACK 16.7 MG IV ×2 (02:09→07:30)
[2023-10-15 03:44] VITALS: BP 126/79; PULSE 95; RESP 16; TEMP 35.9; O2SAT 95
[2023-10-15] MEDS: Lactated Ringers 1,000 ML 100 ML IVCONT (06:00)
[2023-10-15] MEDS: Famotidine/PF 20 MG/2 ML VIAL IVPUSH (07:30)
[2023-10-15 07:38] LABS: MANUAL DIFF FLAG NO
[2023-10-15 07:44] VITALS: BP 138/88; PULSE 88; RESP 16; TEMP 36.1; O2SAT 97
[2023-10-15 07:48] LABS: Basophils Percent Auto 0.2 % (0-2); Hematocrit 36.4 % (37.0-47.0); Hemoglobin 11.4 g/dl (12.0-16.0); Imm Gran Abs Auto 0.04 X10*3/uL (0.00-0.03); Imm Gran Pct Auto 0.4 % (0.0-0.4); Lymphocytes Absolute Auto 1.5 X10*3/uL (1.2-4.9); Lymphocytes Percent Auto 13.5 % (20-40); Mean Corpuscular HGB Conc 31.3 g/dl (31.0-35.0); Mean Corpuscular Volume 79.8 fL (80.0-98.0); Mean Platelet Volume 10.6 fL (9.4-12.3); Monocytes Absolute Auto 0.7 X10*3/uL (0.1-1.2); Neutrophils Absolute Auto 9.1 x10*3/uL (2.0-8.3); Neutrophils Percent Auto 79.9 % (45-73); Platelet Count 470 X10*3/uL (160-400); Red Blood Count 4.56 X10*6/uL (4.20-5.50); Red Cell Distribution Width 16.1 % (11.0-16.0); White Blood Count 11.4 X10*3/uL (4.8-10.8)
[2023-10-15 07:59] LABS: Anion Gap 14 (12-20); Blood Urea Nitrogen 7 mg/dL (9-16); Calcium 9.9 mg/dL (8.4-10.2); Carbon Dioxide 21 mmol/L (22-29); Chloride 106 mmol/L (96-108); Creatinine Clr Calc Pharmacy 172.9; Estimated Glomerular Filt Rate > 60; Glucose Random 104 mg/dL (60-115); Potassium 3.9 mmol/L (3.3-5.1); Sodium 137 mmol/L (135-145)
--- NOTE | 2023-10-15 08:57 | HO.POSTANES ---
Post Anesthesia Evaluation Post Anesthesia Evaluation Date of Service: 10/15/23 Vital Signs: Vital Signs Temp Pulse Resp BP Pulse Ox O2 Del Method 10/15/23 07:44 97 F 88 16 138/88 97 Room Air 10/15/23 03:44 96.7 F L 95 16 126/79 95 Room Air 10/14/23 23:28 96.7 F L 87 16 130/82 96 Room Air Anesthesia: General Endotracheal-GETA Mental Status: Awake Pain Control: Satisfactory Nausea/Vomiting: None Hydration: Adequate Anesthesia-Related Issues: No Anes. Related Issues
== END 2023-10-15 09:29 | disposition home or self-care (01) | DRG 621 ==
LOC: HO.SSSA 09:57 → HO.S3 10:28
PROVIDERS: Nurse Practitioner; Physician Assistant Surgical; Admitting Provider Surgery; Visit Provider Surgery
PROC: 0DB64Z3 Excision of Stomach, Percutaneous Endoscopic Approach, Vertical (ICD-10-PCS; CPT 43845; principal; 2023-10-14 07:30)
DX: E66.01 Morbid (severe) obesity due to excess calories (principal); F90.9 Attention-deficit hyperactivity disorder, unspecified type; K76.0 Fatty (change of) liver, not elsewhere classified; Z68.43 Body mass index [BMI] 50.0-59.9, adult; K21.9 Gastro-esophageal reflux disease without esophagitis; K74.00 Hepatic fibrosis, unspecified; Z79.899 Other long term (current) drug therapy
CPT/HCPCS: 36415; 80048; 80053; 80061; 81025; 83036; 83525; 84443; 85014; 85018; 85025; 85610; 85730; 86140; 86850; 86900; 86901; 88304; 88305; 88307; 88342; 99024; A4649; C9145; J0131; J0690; J1100; J1170; J2250; J2405; J2550; J2704; J2795; J3010; J7120

== ENCOUNTER → 2023-10-14 05:57 | Outpatient (BNV) | payer OTHER, SELFPAY | PROVIDERS: Admitting Provider Surgery; Visit Provider Surgery | DX: E66.01 Morbid (severe) obesity due to excess calories (principal); Z68.43 Body mass index [BMI] 50.0-59.9, adult | CPT/HCPCS: 43659; 43775; 99024 ==

== ENCOUNTER 2023-10-21 10:13 | Outpatient (AMB) | payer OTHER, SELFPAY ==
--- NOTE | 2023-10-21 11:00 | MHC.OFFVISWM ---
Intake VS Expanded 10/21/23 11:01 BP 145/78 H Blood Pressure Location Rt brachial Blood Pressure Position Sitting Pulse 90 Pulse Source Pulse Oximeter Temp 96.4 F L Temperature Source Temporal Artery Scan Pulse Oximetry 96 Oxygen Delivery Method Room Air Height 5 ft 5 in Weight 303 lb BMI 50.4 Body Fat % 51.5 Body Fat Mass 155.8 Fat Free Mass 147.0 Visceral Fat Rating 16.0 Body Water % 34.9 Body Water Mass 105.8 Muscle Mass/Score 139.6 Basal Metabolic Rate/Score 2,180 Intake Visit Reasons: (OV) PO LSG 10/14/23 Allergies No Known Allergies Allergy (Verified 10/21/23 11:02) HPI HPI Comments History of Present Illness Details Pleasant 27-year-old female returns to the office today in follow-up. She is 7 days post sleeve gastrectomy performed on 10/14/2023. She is tolerating 3 celebrate 4 in 1 shakes with 1 scoop each in approximately 40-50 oz of fluid per day. No complaints of pain. Positive bowel movement. [facility] Medical History Fatty liver ADHD (attention deficit hyperactivity disorder) Surgical History History of placement of ear tubes Hx of wisdom tooth extraction Hx of adenoidectomy Hx of tonsillectomy Family History Mother High cholesterol Obesity Father High cholesterol Obesity Sister Asthma Social History Household Members: None Housing: Apartment Are you a primary child day care teacher to a significant other at home: No Do you presently have visiting nurse or other home services: No Alcohol intake: current Alcohol intake frequency: former alcohol drinker Patient Tobacco Use Status: Never used Tobacco Physical Exam Vital Signs: Last Vital Signs Temp 96.4 F L 10/21/23 11:01 Pulse 90 10/21/23 11:01 BP 145/78 H 10/21/23 11:01 Pulse Ox 96 10/21/23 11:01 Oxygen Delivery Method Room Air 10/21/23 11:01 BMI result Body Mass Index 50.4 GI Inspection: Yes incision (Mild bruising otherwise clean, dry, intact.) Assessment & Plan Assessment & Plan (1) S/P laparoscopic sleeve gastrectomy: Code(s): Z98.84 - Bariatric surgery status Plan: POD 7 s/p LSG on 10/14/[address] Zelaya Weight loss prior to surgery was 54.2 pounds or []14.6 % TBWL. Original weight on 04/10/2023 was 369.4 pounds and op weight was 315.2 pounds. Be sure to text Dr Zelaya exactly 1 week after surgery your weight from your home scale so he can adjust your meal plan. Continue meal plan until f/u w Gladys in 2 weeks May shower, no submersion in bath for another week Continue abdominal binder with activity and exercise for the next 2 weeks. Exercise prior to surgery was treadmill at home and Madyson Yusuf videos No abdominal exercises for 6 weeks post operatively Will be emailed link to post op video for review Reminded of the pace of drinking, 2 mL per minute, 1 oz/15 min. Coding Level of Care Code Global (64687) Diagnoses S/P laparoscopic sleeve gastrectomy Z98.84
[2023-10-21 11:01] VITALS: BP 145/78; PULSE 90; TEMP 35.8; O2SAT 96; BMI 50.4
== END 2023-10-21 12:58 | disposition home or self-care (01) ==
PROVIDERS: Visit Provider Physician Assistant Surgical
DX: Z98.84 Bariatric surgery status (principal)
CPT/HCPCS: 99024

== ENCOUNTER → 2023-10-21 10:13 | Outpatient (BNVA) | payer OTHER, SELFPAY | PROVIDERS: Visit Provider Physician Assistant Surgical ==

== ENCOUNTER 2023-11-05 08:14 | Outpatient (AMB) | payer OTHER, SELFPAY ==
--- NOTE | 2023-11-05 08:16 | MHC.OFFVISWM ---
Intake VS Expanded 11/05/23 08:28 BP 137/81 Blood Pressure Location Rt brachial Blood Pressure Position Sitting Pulse 117 H Pulse Source Pulse Oximeter Temp 96.0 F L Temperature Source Tympanic Pulse Oximetry 96 Oxygen Delivery Method Room Air Height 5 ft 5 in Weight 294 lb 6.4 oz BMI 49.0 Body Fat % 52.1 Body Fat Mass 153.4 Fat Free Mass 140.8 Visceral Fat Rating 16.0 Body Water % 34.5 Body Water Mass 101.4 Muscle Mass/Score 133.8 Basal Metabolic Rate/Score 2,094 Intake Visit Reasons: (OV) PO LSG 10/14/23 Allergies No Known Allergies Allergy (Verified 10/21/23 11:02) Medication List - Last Reconciled 11/05/23 by Gladys Valladares PA-C pantoprazole 20 mg PO DAILY sucralfate 10 mL PO BID HPI HPI Comments History of Present Illness Details 27 yo woman now 3 weeks s/p LSG. No n/v/abd pain or reflux. Normal BM's. Sleeps 8-9 hours per night. Meal plan per R: 8am - 4:1 1 scoop with UAM 11 am - same shake 2 pm - 2 scoop Premier UAM 5 pm -Pure protein bar Exercise - Has been too tried to exercise, walks 10 minutes only. Before surgery speed 3- 3.5, incline, 0-6 4d/ week and LS 2 miles videos 3 d/ week. Has access to a stationary bike [facility] Medical History Pre-op evaluation Fatty liver ADHD (attention deficit hyperactivity disorder) Surgical History Hx of laparoscopic partial gastrectomy History of placement of ear tubes Hx of wisdom tooth extraction Hx of adenoidectomy Hx of tonsillectomy Family History Mother High cholesterol Obesity Father High cholesterol Obesity Sister Asthma Social History Household Members: None Housing: Apartment Are you a primary care management associate to a significant other at home: No Do you presently have visiting nurse or other home services: No Alcohol intake: current Alcohol intake frequency: former alcohol drinker Patient Tobacco Use Status: Never used Tobacco Physical Exam Vital Signs: Last Vital Signs Temp 96.0 F L 11/05/23 08:28 Pulse 117 H 11/05/23 08:28 BP 137/81 11/05/23 08:28 Pulse Ox 96 11/05/23 08:28 Oxygen Delivery Method Room Air 11/05/23 08:28 BMI result Body Mass Index 49.0 GI Inspection: Yes incision (c/d/i - all ) Palpation (GI): Soft to palpation and nontender Assessment & Plan Assessment & Plan (1) S/P laparoscopic sleeve gastrectomy: Code(s): Z98.84 - Bariatric surgery status Plan: Needs to sleep 8- 10 hours per night. She has lost 75 lbs or 20% TBWL. Meal plan- change to 4 scoops total of Celebrate - to get all vitamins. Start treadmill - speed 3.2 - no incline - 30 minutes daily. Restart Strattera during first shake in am. Will restart OCPs on November 27. Next appt with me 2-3 weeks. (2) Morbid obesity: Code(s): E66.01 - Morbid (severe) obesity due to excess calories Plan see above Coding Level of Care Code Global (04901) Diagnoses S/P laparoscopic sleeve gastrectomy Z98.84 Morbid obesity E66.01
[2023-11-05 08:28] VITALS: BP 137/81; PULSE 117; TEMP 35.6; O2SAT 96; BMI 49.0
== END 2023-11-05 08:57 | disposition home or self-care (01) ==
PROVIDERS: Visit Provider Physician Assistant
DX: Z98.84 Bariatric surgery status (principal); E66.01 Morbid (severe) obesity due to excess calories
CPT/HCPCS: 99024

== ENCOUNTER → 2023-11-05 08:14 | Outpatient (BNVA) | payer OTHER, SELFPAY | PROVIDERS: Visit Provider Physician Assistant ==

== ENCOUNTER 2023-11-26 08:30 | Outpatient (AMB) | payer OTHER, SELFPAY ==
--- NOTE | 2023-11-26 08:39 | A.OFFVIS_ITS ---
Intake VS Expanded 11/26/23 08:40 Height 5 ft 5 in Weight 282 lb BMI 46.9 Intake Visit Reasons: VIDEO PO LSG 10/14/23 Allergies No Known Allergies Allergy (Verified 10/21/23 11:02) Medication List - Last Reconciled 11/26/23 by Gladys Valladares PA-C pantoprazole 20 mg PO DAILY sucralfate 10 mL PO BID HPI HPI Comments History of Present Illness Details Pt is now 6 weeks s/p LSG, no n/v/abd pain or reflux. Pt states she feels very frustrated and she is craving savory foods. she discussed this with Dr Corrales - he offered her pea crisps and she did not want snack food, but wants real food'. [employer] weight was 369.4, TBWL, 87.4 lbs or 23.7%. Meal plan per Dr Corrales: 8am - 1 scoop 4:1 8oz UAM 11 am - same shake 2 pm - 5pm - bar 6:30 - 4:1 2 scoops Exercise - 300 tracey per day, alternates with 400 tracey per ay. treadmill 3 d- speed at least 3, incline 0- 4 OR 300 calorie walks 2d over 30 minutes PFSH Medical History Pre-op evaluation Fatty liver ADHD (attention deficit hyperactivity disorder) Surgical History Hx of laparoscopic partial gastrectomy History of placement of ear tubes Hx of wisdom tooth extraction Hx of adenoidectomy Hx of tonsillectomy Family History Mother High cholesterol Obesity Father High cholesterol Obesity Sister Asthma Social History Household Members: None Housing: Apartment Are you a primary family day care provider to a significant other at home: No Do you presently have visiting nurse or other home services: No Alcohol intake: current Alcohol intake frequency: former alcohol drinker Patient Tobacco Use Status: Never used Tobacco Assessment & Plan Assessment & Plan (1) S/P laparoscopic sleeve gastrectomy: Code(s): Z98.84 - Bariatric surgery status Plan: Meal plan- continue the 3 4:1 shakes per day - for all vitamins - 2 scoop shake in am. continue the bar in afternoons 6pm - 1 scrambled egg - cook moist 7pm - last shake with 1 scoop powder. Exrecise - Alternate daily 300 and 400 calories - in 2 weeks 350 and [address] videos 15 minutes >3d/week. PG or TBP. Next appt with me in 4 weeks. Will start OCP's this week..- will use luis up this month for first month. Telehealth Telehealth Location of provider rendering services: practice address Location of patient: address on file Patient Identification confirmed using: Name, : Yes Telehealth method: video Patient verbally consented to treatment: Yes Patient verbally consented to billing insurance company: Yes Patient informed of any privacy concerns related to visit: Yes Coding Level of Care Code Global (09114) Diagnoses S/P laparoscopic sleeve gastrectomy Z98.84
[2023-11-26 08:40] VITALS: BMI 46.9
== END 2023-11-26 08:59 | disposition home or self-care (01) ==
LOC: HO.HBS 08:57
PROVIDERS: Visit Provider Physician Assistant
DX: Z98.84 Bariatric surgery status (principal)
CPT/HCPCS: 99024

== ENCOUNTER → 2023-11-26 08:30 | Outpatient (BNVA) | payer OTHER, SELFPAY | PROVIDERS: Visit Provider Physician Assistant ==

== ENCOUNTER 2023-12-24 08:48 | Outpatient (AMB) | payer OTHER, SELFPAY ==
--- NOTE | 2023-12-24 08:52 | A.OFFVIS_ITS ---
Intake VS Expanded 12/24/23 08:59 BP 157/67 H Blood Pressure Location Rt brachial Blood Pressure Position Sitting Pulse 95 Pulse Source Pulse Oximeter Temp 97.5 F Temperature Source Temporal Artery Scan Pulse Oximetry 97 Oxygen Delivery Method Room Air Height 5 ft 5 in Weight 276 lb BMI 45.9 Body Fat % 48.7 Body Fat Mass 134.2 Fat Free Mass 141.6 Visceral Fat Rating 13.0 Body Water % 36.9 Body Water Mass 101.8 Muscle Mass/Score 134.4 Basal Metabolic Rate/Score 2,066 Intake Visit Reasons: (OV) PO LSG 10/14/23 Allergies No Known Allergies Allergy (Verified 12/24/23 08:55) Medication List - Last Reconciled 12/24/23 by Gladys Valladares PA-C norgestimate-ethinyl estradiol 0.25-35 mg-mcg 1 tab PO DAILY pantoprazole 20 mg PO DAILY sucralfate 10 mL PO BID HPI HPI Comments History of Present Illness Details [employer] weight of 369.4 lbs, 10 weeks post op LSG, No n/v abd pain or reflux. TBWL 93.4,25%. Dr Corrales changed the meal plan to: 8am - 2 scoops 4:1 11 a - Pure protein bar 2 pm 4:1 shake or Premier shake 6 pm - 4 forks each protien and cooked v eg after dinner- half bar Exercise - Goal 2,000 tracey/week. This past week walked 7 days - 300 - 370 calories each day. Walks a 14 - 16 minute mile for 2 miles. OR treadmill speed 3, incline - incline 2-8 - PFSH Medical History Pre-op evaluation Fatty liver ADHD (attention deficit hyperactivity disorder) Surgical History Hx of laparoscopic partial gastrectomy History of placement of ear tubes Hx of wisdom tooth extraction Hx of adenoidectomy Hx of tonsillectomy Family History Mother High cholesterol Obesity Father High cholesterol Obesity Sister Asthma Social History Household Members: None Housing: Apartment Are you a primary ambulatory care to a significant other at home: No Do you presently have visiting nurse or other home services: No Alcohol intake: current Alcohol intake frequency: former alcohol drinker Patient Tobacco Use Status: Never used Tobacco Physical Exam Vital Signs: Last Vital Signs Temp 97.5 F 12/24/23 08:59 Pulse 95 12/24/23 08:59 BP 157/67 H 12/24/23 08:59 Pulse Ox 97 12/24/23 08:59 Oxygen Delivery Method Room Air 12/24/23 08:59 BMI result Body Mass Index 45.9 Assessment & Plan Assessment & Plan (1) S/P laparoscopic sleeve gastrectomy: Code(s): Z98.84 - Bariatric surgery status Plan: 10 wks post op - still getting meal plans from Dr Corrales, no changes today other zak n making sure to have 2 full 4:1 shakes per day. Will have 4 oz decaf now in am with shake Next appt in 4 weeks with Candida Coding Level of Care Code Global (54236) Diagnoses S/P laparoscopic sleeve gastrectomy Z98.84
[2023-12-24 08:59] VITALS: BP 157/67; PULSE 95; TEMP 36.4; O2SAT 97; BMI 45.9
== END 2023-12-24 09:36 | disposition home or self-care (01) ==
PROVIDERS: Visit Provider Physician Assistant
DX: Z98.84 Bariatric surgery status (principal)
CPT/HCPCS: 99024

== ENCOUNTER → 2023-12-24 08:48 | Outpatient (BNVA) | payer OTHER, SELFPAY | PROVIDERS: Visit Provider Physician Assistant ==

== ENCOUNTER 2024-01-13 11:24 | Emergency (ER) | payer OTHER, SELFPAY ==
--- NOTE | ~2024-01-13 | CT_ITS ---
EXAMINATION: CT abdomen pelvis w IV con CLINICAL INFORMATION: Reason for Exam N/v, epigastric pain COMPARISON: No prior CT available for comparison. TECHNIQUE: Multidetector volumetric imaging was performed from the superior aspect of the liver through the pubic symphysis 85 mL of Omnipaque 350 injected Sagittal and coronal reformatted images were obtained on the technologist's workstation. This CT examination was performed using dose optimization techniques as appropriate, variously including the following: *Automated exposure control *Adjustment of mA and/or kV according to patient size (this includes techniques or standardized protocols for targeted exams where dose is matched to indication/reason for exam; i.e. extremities or head) *Use of iterative reconstruction technique DLP: 1284 mGy-cm FINDINGS: LOWER THORAX: Included lung bases are clear. HEPATOBILIARY: No focal hepatic lesions. No biliary ductal dilatation. GALLBLADDER: Gallbladder unremarkable. SPLEEN: Spleen is normal in size. PANCREAS: No focal mass or ductal dilatation. STOMACH AND GASTROINTESTINAL TRACT: Postsurgical changes from prior partial gastrectomy, otherwise Stomach is grossly unremarkable. There is no bowel distention or thickening. The appendix was not visualized, however no dilated blind loop around the cecum to suggest appendicitis.. ADRENALS: No adrenal nodules. KIDNEYS/URETERS: No hydronephrosis, stones or solid mass lesions. URINARY BLADDER: Partially decompressed. PELVIC VISCERA: Unremarkable PERITONEUM: No free air or fluid. LYMPH NODES: No lymphadenopathy. VASCULAR:Abdominal aorta normal in size, no aneurysm found. BONES, ABDOMINAL WALL AND SOFT TISSUES: There are sclerotic changes around the SI joints bilaterally, raising suspicion for possible bilateral sacroiliitis. CT/CT abdomen pelvis w IV con IMPRESSION: 1. No CT evidence of acute intra-abdominal process to explain patient's pain symptoms. 2. Postsurgical changes from prior partial gastrectomy. 3. Sclerotic changes around the SI joints bilaterally raising suspicion for possible bilateral sacroiliitis.
--- NOTE | ~2024-01-13 | US_ITS ---
EXAMINATION: US ABDOMEN LIMITED CLINICAL INFORMATION: Nausea, vomiting, epigastric pain and elevated LFTs. COMPARISON: CT abdomen pelvis earlier today TECHNIQUE: Real-time imaging of the right upper quadrant abdominal viscera. FINDINGS: PANCREAS: The pancreas appears unremarkable, without masses or ductal dilatation, with the exception of the tail which is obscured by bowel gas. LIVER: The liver is normal in size. The liver contour is normal. There is diffuse increased liver parenchymal echogenicity, consistent with hepatic steatosis. No focal hepatic lesion. There is no intrahepatic biliary duct dilatation seen. GALLBLADDER: The gallbladder is physiologically distended and contains some echogenic bile. Multiple mobile gallstones are present. No evidence of gallbladder wall thickening or pericholecystic fluid. COMMON BILE DUCT: Normal in caliber measuring 0.4 cm in diameter. RIGHT KIDNEY: Normal. No hydronephrosis. No renal calculi or focal parenchymal lesions. The kidney measures 10.7 cm in maximum dimension. FREE FLUID: None. US/US abdomen limited IMPRESSION: 1. Cholelithiasis without evidence of cholecystitis. 2. Hepatic steatosis.
[2024-01-13 11:35] VITALS: BP 117/78; PULSE 74; RESP 16; TEMP 36.4; O2SAT 98; BMI 46.0
--- NOTE | 2024-01-13 11:35 | ED.GENADULT ---
HPI - General Adult General Chief complaint: Nausea/Vomiting/Diarrhea Stated complaint: nausea Time Seen by Provider: 01/13/24 15:51 Source: patient Mode of arrival: ambulatory Limitations: no limitations History of Present Illness HPI narrative: Patint is a 28yo F pmhx gastric sleeve 09/2023 at [facility] presents with N/V since 18:30 last night, 4-6 episodes billious emesis. Unable to tolerate protein shakes past 24 hours. Has intermittent epigastric pain with this. States at 17:00 has a small amount of dried pulled rotissere chicken from a store, otherwise no abnormal foods. Denies fevers, chills, URI sx, symptoms, possibility of , diarrhea, constipation, known sick contacts. Received Davi from Triage which she states was helpful for her nausea Related Data Home Medications ?Medication ?Instructions ?Recorded ?Confirmed pantoprazole 20 mg tablet,delayed 20 mg PO DAILY 11/05/23 12/24/23 release norgestimate 0.25 mg-ethinyl 1 tab PO DAILY 12/24/23 12/24/23 estradiol 35 mcg tablet Previous Rx's ?Medication ?Instructions ?Recorded sucralfate 100 mg/mL oral 10 ml PO BID #600 mL 10/03/23 suspension ondansetron 4 mg disintegrating 4 mg PO Q8H PRN nausea and 01/13/24 tablet vomiting #14 tabs Allergies Allergy/AdvReac Type Severity Reaction Status Date / Time No Known Allergies Allergy Verified 01/13/24 11:37 Review of Systems Review of Systems: Yes all other systems are reviewed and are negative PMFSH Past Medical History Attestation statement: The following information was validated with the patient. Source: old records reviewed Medical History Pre-op evaluation Fatty liver ADHD (attention deficit hyperactivity disorder) Surgical History Hx of laparoscopic partial gastrectomy History of placement of ear tubes Hx of wisdom tooth extraction Hx of adenoidectomy Hx of tonsillectomy Family History Family History Mother High cholesterol Obesity Father High cholesterol Obesity Sister Asthma Social History Social History (Reviewed 12/24/23 @ 08:55 by MANI Bernal Household Members: None Housing: Apartment Are you a primary home care associate to a significant other at home: No Do you presently have visiting nurse or other home services: No Alcohol intake: current Alcohol intake frequency: former alcohol drinker Patient Tobacco Use Status: Never used Tobacco Smoked in Last 30 Days: No Use of substances other than those prescribed or required for medical reasons: No Advance Directives: No Advance Directives Information Provided: Yes Patient : No Physical Exam ED Vital Signs: Vital Signs - 24 hr 01/13/24 11:35 01/13/24 15:47 01/13/24 17:54 Temperature 97.6 F 97.6 F 98.7 F Pulse Rate 74 71 53 Respiratory Rate 16 17 16 Blood Pressure 117/78 149/73 H 116/68 Pulse Oximetry 98 97 98 Oxygen Delivery Method Room Air Room Air Room Air BMI result Body Mass Index 46.0 Appearance: Alert.?Oriented to person, place and time. No acute distress.?Normal affect. Eyes: Pupils equal, round and reactive to light.? ENT: Pharynx normal.?? Neck: Normal inspection.? Neck supple.?? CVS: Heart sounds normal. Normal heart rate and rhythm.? Pulses normal.?? Respiratory: No respiratory distress.? Lung sounds clear to auscultation bilaterally?? Abdomen: Soft with epigastric TTP. No CVA tenderness.. Normoactive bowel sounds. Skin: Skin warm and dry.? Normal skin color.? ? Extremities: No lower extremity edema.? No calf ttp? Neuro: Moves all extremities spontaneously. Sensation intact bilaterally. Ambulates with normal steady gait. Course Course Course Narrative: RME- 28 year old female presents for evaluation of nausea and mild abdominal pain. She reports having a gastric sleeve done here in September. Plan for labs, UA, Reevaluation(s) Reevaluation #1: CT reveals no acute intra-abdominal pathology, anticipated postsurgical changes from gastrectomy. This time will obtain ultrasound to exclude cholelithiasis possible cholecystitis not visualized on CT Time: 18:27 Reevaluation #2: US/US abdomen limited IMPRESSION: 1. Cholelithiasis without evidence of cholecystitis. 2. Hepatic steatosis. Symptoms may be secondary to biliary colic, she is tolerating oral intake, currently asymptomatic. Recommend outpatient follow-up with primary care provider, for persistent symptoms, may consider evaluation with General surgery. Discussed worrisome signs and symptoms that would warrant re-evaluation in the emergency department. All questions answered. Stable for discharge. Time: 20:29 Medications Administered Discontinued Medications Generic Name Dose Route Start Last Admin Trade Name Freq PRN Reason Stop Dose Admin Sodium Chloride 1,000 mls @ 999 mls/hr 01/13/24 16:15 01/13/24 19:13 Ns IV 01/13/24 17:15 Infused .Q1H1M ZACKARY Infusion Iohexol 100 ml 01/13/24 17:07 01/13/24 17:11 Iohexol 350 Mg/Ml 100 Ml Infus..Btl IV 01/13/24 17:08 85 ml ONCE ONE Administration Ondansetron HCl 4 mg 01/13/24 16:06 01/13/24 16:31 Ondansetron Hcl 4 Mg/2 Ml Vial IVPUSH 01/13/24 16:07 4 mg ONCE ONE Administration Medical Decision Making Medical Decision Making [facility] Narrative: Patient is a 28 year old female pmhx gastric sleeve September [address] Haynes, reporting compliance with deitary management as per their instructions presenting fr N/V and episgastric pain as her HPI. Overall well appearing, non toxic, afebrile, no tachycardia. ABD exam ntable for mild epigastric TTP, neg murphys sign. Labs reviewed, mild leukocytosis 11.8 likely reactive secondary to vomiting versus infectious etiology, no anemia, chronic thrombocytosis. No electrolyte derangement, no LARISA. Elevated transaminases, does not appear to have history of prior; AST 101, ALT 185, alk phos 171, lipase normal. Differential Diagnosis Differential Diagnoses: The differential diagnosis associated with the presentation includes (cholecystitis, cholelithiasis, NAFLD, gastroenteritis, SBO, viral syndrome) Admission/Observation Consideration of admission/observation: Escalation of care including admission/observation considered Consult Healthcare Provider Management of the patient was discussed with: Bench Inspector (Michelle HAYNES Bariatric Surgery) Lab Data [facility] Lab Attestation statement: I reviewed the patient's lab results. (see narrative above) 01/13/24 11:56 01/13/24 11:56 Labs: Lab Results 01/13/24 01/13/24 Range/Units 11:56 16:15 WBC 11.8 H (4.8-10.8) X10*3/uL RBC 4.86 (4.20-5.50) X10*6/uL Hgb 12.4 (12.0-16.0) g/dl Hct 39.0 (37.0-47.0) % MCV 80.2 (80.0-98.0) fL MCH 25.5 L (27.0-33.0) pg MCHC 31.8 (31.0-35.0) g/dl RDW 17.2 H (11.0-16.0) % Plt Count 489 H (160-400) X10*3/uL MPV 11.3 (9.4-12.3) fL Immature Gran % (Auto) 0.3 (0.0-0.4) % Neut % (Auto) 82.4 H (45-73) % Lymph % (Auto) 11.2 L (20-40) % [place] % (Auto) 5.0 (2-11) % Eos % (Auto) 0.4 (0-4) % Baso % (Auto) 0.7 (0-2) % Lymph # (Auto) 1.3 (1.2-4.9) X10*3/uL [place] # (Auto) 0.6 (0.1-1.2) X10*3/uL Eos # (Auto) 0.1 (0.0-0.4) X10*3/uL Baso # (Auto) 0.1 (0.0-0.2) X10*3/uL Abs Immat Gran (auto) 0.03 (0.00-0.03) X10*3/uL Absolute Neuts (auto) 9.7 H (2.0-8.3) x10*3/uL Absolute Nucleated RBC 0.000 (0.0-0.012) X10*3/uL Nucleated RBC % (auto) 0.0 (0.0-0.2) /100WBC Sodium 139 (135-145) mmol/L Potassium 4.2 (3.3-5.1) mmol/L Chloride 107 (96-108) mmol/L Carbon Dioxide 21 L (22-29) mmol/L Anion Gap 15 (12-20) BUN 12 (9-16) mg/dL Creatinine 0.73 (0.5-1.4) mg/dL Estim Creat Clear Calc 150.2 Estimated GFR > 60 Random Glucose 88 (60-115) mg/dL Calcium 9.6 (8.4-10.2) mg/dL Total Bilirubin 0.9 (0.0-1.0) mg/dL AST 101 H (5-31) U/L ALT 185 H (0-31) U/L Alkaline Phosphatase 171 H (39-117) U/L Total Protein 7.6 (6.5-8.0) g/dL Albumin 4.0 (3.5-5.0) g/dL Lipase 24 (8-78) U/L Beta HCG, Quant < 2 mIU/mL Urine Color Dark Yellow Urine Appearance Cloudy Urine pH 5.5 (5.0-9.0) Ur Specific [place] >= 1.030 H (1.005-1.025) Urine Protein 30 (1+) H (Neg-Trace) mg/dL Urine Glucose (UA) Negative (Negative) mg/dL Urine Ketones 80 (Negative) mg/dL Urine Blood Large (3+) H (Negative) Urine Nitrite Negative (Negative) Ur Leukocyte Esterase Small (1+) H (Negative) Urine RBC 11-20 H (0-2) /HPF Urine WBC 6-10 H (0-5) /HPF Ur Squamous Epith Cells 6-10 (0-2) /HPF Urine Bacteria 3+ (None Seen) Hyaline Casts 0-2 (0-2) /LPF Influenza Type A (PCR) NEGATIVE (Negative) Influenza Type B (PCR) NEGATIVE (Negative) RSV RNA Qual (PCR) NEGATIVE (Negative) SARS-CoV-2 RNA (RT-PCR) NEGATIVE (Negative) Radiology Impression Discussion of test interpretation with radiology: I have reviewed the radiologist's reading. Radiologist Impression: CT/CT abdomen pelvis w IV con IMPRESSION: 1. No CT evidence of acute intra-abdominal process to explain patient's pain symptoms. 2. Postsurgical changes from prior partial gastrectomy. 3. Sclerotic changes around the SI joints bilaterally raising suspicion for possible bilateral sacroiliitis. Independent Historian Clinical information obtained from an independent historian. History obtained from or confirmed by: Friend (present who confirms history) External Record Review External record reviewed: Outpatient record (November 2023 Bariatrics) Discharge Plan Discharge Clinical Impression: Nausea & vomiting, Cholelithiasis Patient Disposition: Home, Self-Care Additional Instructions: Use Zofran as needed for nausea/vomiting. Continue your dieting plan as outlined by her bariatric provider. As discussed, your ultrasound today does show evidence of gallstones, fortunately there is not current evidence of inflammation to your gallbladder. If you continue to have episodes of nausea vomiting and pain as you experienced today, your primary care provider may consider referring to a general surgeon for further evaluation. You may always return back to emergency department with any new or worsening symptoms or concerns. Prescriptions: New ondansetron 4 mg tablet,disintegrating 4 mg PO Q8H PRN (Reason: nausea and vomiting) Qty: 14 0RF No Action pantoprazole 20 mg tablet,delayed release (DR/EC) 20 mg PO DAILY norgestimate-ethinyl estradiol 0.25-35 mg-mcg tablet 1 tab PO DAILY sucralfate 100 mg/mL suspension 10 ml PO BID Qty: 600 2RF Referrals: Physician,None [Primary Care Provider] - Print Language: Japanese
[2024-01-13 12:01] LABS: MANUAL DIFF FLAG NO
[2024-01-13 12:44] LABS: Influenza A PCR NEGATIVE (Negative); Influenza B PCR NEGATIVE (Negative); Resp Syncy Virus RNA Qual PCR NEGATIVE (Negative); SARS COV2 PCR INHOUSE NEGATIVE (Negative)
[2024-01-13 13:02] LABS: Basophils Absolute Auto 0.1 X10*3/uL (0.0-0.2); Basophils Percent Auto 0.7 % (0-2); Eosinophils Absolute Auto 0.1 X10*3/uL (0.0-0.4); Eosinophils Percent Auto 0.4 % (0-4); Hemoglobin 12.4 g/dl (12.0-16.0); Imm Gran Abs Auto 0.03 X10*3/uL (0.00-0.03); Imm Gran Pct Auto 0.3 % (0.0-0.4); Lymphocytes Absolute Auto 1.3 X10*3/uL (1.2-4.9); Lymphocytes Percent Auto 11.2 % (20-40); Mean Corpuscular HGB Conc 31.8 g/dl (31.0-35.0); Mean Corpuscular Hemoglobin 25.5 pg (27.0-33.0); Mean Corpuscular Volume 80.2 fL (80.0-98.0); Mean Platelet Volume 11.3 fL (9.4-12.3); Monocytes Absolute Auto 0.6 X10*3/uL (0.1-1.2); Neutrophils Absolute Auto 9.7 x10*3/uL (2.0-8.3); Neutrophils Percent Auto 82.4 % (45-73); Platelet Count 489 X10*3/uL (160-400); Red Blood Count 4.86 X10*6/uL (4.20-5.50); Red Cell Distribution Width 17.2 % (11.0-16.0); White Blood Count 11.8 X10*3/uL (4.8-10.8)
[2024-01-13 13:13] LABS: HCG Quantitative < 2 mIU/mL
[2024-01-13 13:29] LABS: Anion Gap 15 (12-20); Blood Urea Nitrogen 12 mg/dL (9-16); Carbon Dioxide 21 mmol/L (22-29); Chloride 107 mmol/L (96-108); Potassium 4.2 mmol/L (3.3-5.1); Sodium 139 mmol/L (135-145)
[2024-01-13 13:30] LABS: Alanine Aminotransferase 185 U/L (0-31); Alkaline Phosphatase 171 U/L (39-117); Aspartate Amino Transferase 101 U/L (5-31); Bilirubin Total 0.9 mg/dL (0.0-1.0); Calcium 9.6 mg/dL (8.4-10.2); Creatinine Clr Calc Pharmacy 150.2; Estimated Glomerular Filt Rate > 60; Glucose Random 88 mg/dL (60-115); Lipase 24 U/L (8-78); Total Protein 7.6 g/dL (6.5-8.0)
[2024-01-13 15:47] VITALS: BP 149/73; PULSE 71; RESP 17; TEMP 36.4; O2SAT 97
--- NOTE | 2024-01-13 15:49 | PC.NURSE ---
patient a&ox3, c/o 12/06 abd pain- pt states at [facility] she was given zofran po and her pain was reduced greatly, pt states she had gastric bypass here and hasnt yet been cleared to eat carbs. pt to attempt to give urine sample, call leo within reach, will continue to monitor
--- NOTE | 2024-01-13 16:16 | MHC.EDTECH ---
PATIENT URINE SAMPLE COLLECTED AND SENT TO LAB .
[2024-01-13 16:30] LABS: Appearance Urine Cloudy; Color Urine Dark Yellow; Glucose Urine UA Negative (Negative); Leukocyte Esterase Urine Small (1+) (Negative); Nitrite Urine Negative (Negative); PH 5.5 (5.0-9.0); Specific Gravity - Urine >= 1.030 (1.005-1.025); UMIC TRIGGER UACC YES; Urine Blood Large (3+) (Negative); Urine Ketones 80 mg/dL (Negative); Urine Protein 30 (1+) mg/dL (Neg-Trace)
[2024-01-13] MEDS: 0.9 % Sodium Chloride 1,000 ML 999 ML IV (16:30)
[2024-01-13] MEDS: ondansetron HCL 4 MG/2 ML VIAL IVPUSH (16:31)
[2024-01-13 16:36] LABS: Bacteria Urine 3+ (None Seen); Hyaline Casts Urine 0-2 /LPF (0-2); UACC Culture Trigger YES
[2024-01-13] MEDS: iohexoL 350 MG/ML 100 ML INFUS..BTL IV (17:11)
[2024-01-13 17:54] VITALS: BP 116/68; PULSE 53; RESP 16; TEMP 37.1; O2SAT 98
[2024-01-13 20:41] VITALS: BP 113/72; PULSE 58; RESP 16; TEMP 36.6; O2SAT 98
[2024-01-13 20:50] VITALS: BP 113/72; PULSE 58; RESP 16; TEMP 36.6; O2SAT 98
== END 2024-01-13 20:57 | disposition home or self-care (01) ==
PROVIDERS: Physician Assistant; Emergency Provider Emergency Medicine
DX: R11.2 Nausea with vomiting, unspecified (principal); K80.20 Calculus of gallbladder without cholecystitis without obstruction; Z98.84 Bariatric surgery status; Z03.818 Encounter for observation for suspected exposure to other biological agents ruled out
CPT/HCPCS: 0241U; 74177; 76705; 80053; 81001; 83690; 84702; 85025; 87086; 96361; 96374; 99284; 99285; J2405; Q9967

== ENCOUNTER 2024-01-16 08:16 | Outpatient (REF) | payer OTHER, SELFPAY ==
[2024-01-16 08:49] LABS: MANUAL DIFF FLAG NO
[2024-01-16 09:17] LABS: Basophils Absolute Auto 0.1 X10*3/uL (0.0-0.2); Eosinophils Absolute Auto 0.2 X10*3/uL (0.0-0.4); Eosinophils Percent Auto 2.4 % (0-4); Hematocrit 43.6 % (37.0-47.0); Hemoglobin 13.5 g/dl (12.0-16.0); Imm Gran Abs Auto 0.02 X10*3/uL (0.00-0.03); Imm Gran Pct Auto 0.3 % (0.0-0.4); Lymphocytes Absolute Auto 1.8 X10*3/uL (1.2-4.9); Lymphocytes Percent Auto 23.2 % (20-40); Mean Corpuscular Hemoglobin 25.2 pg (27.0-33.0); Mean Corpuscular Volume 81.5 fL (80.0-98.0); Mean Platelet Volume 11.2 fL (9.4-12.3); Monocytes Absolute Auto 0.4 X10*3/uL (0.1-1.2); Monocytes Percent Auto 4.9 % (2-11); Neutrophils Absolute Auto 5.4 x10*3/uL (2.0-8.3); Neutrophils Percent Auto 68.2 % (45-73); Platelet Count 501 X10*3/uL (160-400); Red Blood Count 5.35 X10*6/uL (4.20-5.50); Red Cell Distribution Width 17.8 % (11.0-16.0); White Blood Count 7.9 X10*3/uL (4.8-10.8)
[2024-01-16 09:22] LABS: Prothrombin Time 12.4 SEC (11.1-13.3)
[2024-01-16 09:25] LABS: Partial Thromboplastin Time 38.8 SEC (26.0-36.8)
[2024-01-16 09:31] LABS: Estimated Average Glucose 94 mg/dL; Hemoglobin A1C 104.5971 umol/L; Hemoglobin A1c % 4.9 % (<6.0)
[2024-01-16 10:13] LABS: Alanine Aminotransferase 181 U/L (0-31); Albumin Level 4.1 g/dL (3.5-5.0); Alkaline Phosphatase 116 U/L (39-117); Anion Gap 14 (12-20); Aspartate Amino Transferase 75 U/L (5-31); Bilirubin Total 0.5 mg/dL (0.0-1.0); Blood Urea Nitrogen 11 mg/dL (9-16); C Reactive Protein 3.93 mg/dL (< or = 0.50); Calcium 9.7 mg/dL (8.4-10.2); Carbon Dioxide 25 mmol/L (22-29); Chloride 107 mmol/L (96-108); Cholesterol 218 mg/dL (<200); Estimated Glomerular Filt Rate > 60; Glucose Random 80 mg/dL (60-115); HDL Cholesterol 36 mg/dL (>40); Iron 34 mcg/dL (30-160); LDL Cholesterol Calculated 148 mg/dL (<100); Percent Iron Saturation 9 % (15-50); Potassium 3.7 mmol/L (3.3-5.1); Sodium 142 mmol/L (135-145); Total Iron Binding Capacity 358 mcg/dL (228-428); Total Protein 7.5 g/dL (6.5-8.0); Triglycerides 172 mg/dL (<150); Unsaturated Iron Binding 324 ug/dL
[2024-01-16 10:33] LABS: Ferritin 27 ng/mL (10-122); TSH reflex Free T4 4.94 uIU/mL (0.32-4.0)
[2024-01-16 10:44] LABS: Vitamin B12 688 pg/mL (200-900)
[2024-01-16 14:44] LABS: Free T4 (Free Thyroxine) 0.89 ng/dL (0.71-1.85)
[2024-01-20 06:44] LABS: Zinc 93 mcg/dL (60-130)
[2024-01-20 14:13] LABS: Vitamin B1 12 nmol/L (8-30)
[2024-01-20 23:28] LABS: Vitamin A 57 mcg/dL (38-98)
== END 2024-01-16 08:17 | disposition home or self-care (01) ==
LOC: HO.LAB 08:16
PROVIDERS: PCP Surgery; Visit Provider Surgery
DX: K91.2 Postsurgical malabsorption, not elsewhere classified (principal); Z90.3 Acquired absence of stomach [part of]; K80.20 Calculus of gallbladder without cholecystitis without obstruction
CPT/HCPCS: 36415; 80053; 80061; 82306; 82607; 82728; 83036; 83540; 84425; 84439; 84443; 84590; 84630; 85025; 85610; 85730; 86140; 86850; 86900; 86901

== ENCOUNTER 2024-01-16 09:12 | Outpatient (AMB) | payer OTHER, SELFPAY ==
[2024-01-17 15:36] VITALS: BMI 45.7
--- NOTE | 2024-01-17 15:36 | MHC.OFFVISWM ---
VS Expanded 01/17/24 15:36 Height 5 ft 4 in Weight 266 lb BMI 45.7 Body Fat % 58.2 Body Fat Mass 154.8 Fat Free Mass 111.4 Visceral Fat Rating 25 Body Water % 28.7 Body Water Mass 76.3 Intake Visit Reasons: TV Pre Op Lap Daniela 01/22/24 Allergies No Known Allergies Allergy (Verified 01/17/24 15:39) Medication List - Last Reconciled 01/17/24 by Krzysztof Zelaya MD norgestimate-ethinyl estradiol 0.25-35 mg-mcg 1 tab PO DAILY ondansetron 4 mg PO Q8H PRN pantoprazole 20 mg PO DAILY sucralfate 10 mL PO BID HPI HPI TV Pre Op Lap Daniela 01/22/24: Details: Start time: 3pm, End time: 3.30pm ?I spent 25 minutes speaking with the patient on the phone plus an additional 5 minutes reviewing and updating records for a total of 30 minutes HPI Comments Details: The patient is s/p sleeve gastrectomy 3 months ago with excellent weight loss so far of 102.6lbs, or27.8% TBWL Recently she eperienced postprandial RUQ pain and presented to the ER. Abdominal US was consistent with cholelithiasis. Normal CBD. Blood work showed elevated LFTs with normal bilirubin. REPLACED BY [facility] Medical History Pre-op evaluation Fatty liver ADHD (attention deficit hyperactivity disorder) Surgical History Hx of laparoscopic partial gastrectomy History of placement of ear tubes Hx of wisdom tooth extraction Hx of adenoidectomy Hx of tonsillectomy Family History Mother High cholesterol Obesity Father High cholesterol Obesity Sister Asthma Social History Household Members: None Housing: Apartment Are you a primary human services care specialist to a significant other at home: No Do you presently have visiting nurse or other home services: No Alcohol intake: current Alcohol intake frequency: former alcohol drinker Patient Tobacco Use Status: Never used Tobacco Telehealth Telehealth Location of provider rendering services: practice address Location of patient: address on file Patient Identification confirmed using: Name, : Yes Telehealth method: voice only Patient verbally consented to treatment: Yes Patient verbally consented to billing insurance company: Yes Patient informed of any privacy concerns related to visit: Yes Minutes spent on Phone/Video with Pt.: 30 Assessment & Plan Assessment & Plan (1) Cholelithiasis: Code(s): K80.20 - Calculus of gallbladder without cholecystitis without obstruction Category: Medical Qualifiers: Cholelithiasis location: gallbladder Cholecystitis presence: with cholecystitis Cholecystitis acuity: acute Biliary obstruction: with biliary obstruction Qualified Code(s): K80.01 - Calculus of gallbladder with acute cholecystitis with obstruction Plan: 1. The patient was not aware of having a cholelithiasis and it was not present preoperatively.. We discussed in detail the potential complications and their management including bleeding, bile leak, pancreatitis and major bile duct injury. We also discussed that the elevated LFTs are suggestive that small stones may be in the CBD and may need a postoperative ERCP. 2. Avoid any aspirin, motrin, aleve, ibuprofen, advil, meloxicam. They can cause bleeding. You can use Tylenol
== END 2024-01-17 15:49 | disposition home or self-care (01) ==
PROVIDERS: PCP Surgery; Visit Provider Surgery
DX: K80.01 Calculus of gallbladder with acute cholecystitis with obstruction (principal)
CPT/HCPCS: 99499

== ENCOUNTER 2024-01-22 07:15 | Day surgery (SDC) | payer OTHER, SELFPAY ==
--- NOTE | 2024-01-20 12:30 | P.CONAN_ITS ---
Documented by User: Marilia Lux NP 01/20/24 12:31 HPI - Anesthesia Eval Consult details Narrative: 28yo F for Cholecystectomy Laparoscopic s/p gastric sleeve 09/2023 with GA-ETT 7 PMFSH Active Problems Active Problems: All Active Problems Postgastrectomy malabsorption (Acute) S/P laparoscopic sleeve gastrectomy (Acute) GERD (gastroesophageal reflux disease) (Acute) Liver fibrosis (Acute) ADHD (attention deficit hyperactivity disorder), combined type (Acute) Liver disease, chronic (Acute) Morbid obesity (Acute) Past Medical History Medical History Pre-op evaluation Fatty liver ADHD (attention deficit hyperactivity disorder) Family History Family History Mother High cholesterol Obesity Father High cholesterol Obesity Sister Asthma Surgical History Surgical History Hx of laparoscopic partial gastrectomy History of placement of ear tubes Hx of wisdom tooth extraction Hx of adenoidectomy Hx of tonsillectomy Social History Social History Household Members: None Housing: Apartment Are you a primary child care teacher to a significant other at home: No Do you presently have visiting nurse or other home services: No Alcohol intake: current Alcohol intake frequency: does not drink Patient Tobacco Use Status: Never used Tobacco Are you DNR?: No Advance Directives: No Advance Directives Information Provided: Yes Meds Allergies Allergy/AdvReac Type Severity Reaction Status Date / Time No Known Allergies Allergy Verified 01/17/24 15:39 Home Medications ?Medication ?Instructions ?Recorded ?Confirmed ?Last Taken ?Type pantoprazole 20 mg tablet,delayed 20 mg PO DAILY 11/05/23 01/17/24 Unknown History release norgestimate 0.25 mg-ethinyl 1 tab PO DAILY 12/24/23 01/17/24 Unknown History estradiol 35 mcg tablet Exam Pertinent Lab Results Pertinent Lab Results: Laboratory Tests 01/16/24 08:32 Blood Type O Negative Antibody Screen NEGATIVE Laboratory Tests 01/16/24 08:46 WBC 7.9 Hgb 13.5 Hct 43.6 Plt Count 501 H Sodium 142 Potassium 3.7 Chloride 107 Carbon Dioxide 25 BUN 11 Creatinine 0.76 Narrative Narrative: EKG 04/2023 Vent. Rate : 083 BPM Atrial Rate : 083 BPM P-R Int : 136 ms QRS Dur : 078 ms QT Int : 364 ms P-R-T Axes : 057 047 041 degrees QTc Int : 427 ms Normal sinus rhythm Normal ECG No previous ECGs available Assessment and Plan Assessment Anesthesia Assessment: Chart Reviewed Documented by User: Fratun Kilgore MD 01/22/24 11:03 [facility] Active Problems Active Problems: All Active Problems Postgastrectomy malabsorption (Acute) S/P laparoscopic sleeve gastrectomy (Acute) GERD (gastroesophageal reflux disease) (Acute) Liver fibrosis (Acute) ADHD (attention deficit hyperactivity disorder), combined type (Acute) Liver disease, chronic (Acute) Morbid obesity (Acute) Past Medical History Medical History Pre-op evaluation Fatty liver ADHD (attention deficit hyperactivity disorder) Family History Family History Mother High cholesterol Obesity Father High cholesterol Obesity Sister Asthma Surgical History Surgical History Hx of laparoscopic partial gastrectomy History of placement of ear tubes Hx of wisdom tooth extraction Hx of adenoidectomy Hx of tonsillectomy History of Problems with Anesthesia: No Social History Social History Household Members: None Housing: Apartment Are you a primary child care teacher to a significant other at home: No Do you presently have visiting nurse or other home services: No Alcohol intake: current Alcohol intake frequency: does not drink Patient Tobacco Use Status: Never used Tobacco Are you DNR?: No Advance Directives: No Advance Directives Information Provided: Yes Meds Allergies Allergy/AdvReac Type Severity Reaction Status Date / Time No Known Allergies Allergy Verified 01/17/24 15:39 Home Medications ?Medication ?Instructions ?Recorded ?Confirmed ?Last Taken ?Type pantoprazole 20 mg tablet,delayed 20 mg PO DAILY 11/05/23 01/17/24 Unknown History release norgestimate 0.25 mg-ethinyl 1 tab PO DAILY 12/24/23 01/17/24 Unknown History estradiol 35 mcg tablet Exam Airway Mallampati Class: II TM Dist: >3cm Neck ROM: Full Loose/Missing/Broken Teeth: No Heart: RRR Lungs: CTA Assessment and Plan Assessment Anesthesia Assessment: Anesthesia Plan Discussed Final Anesthetic Review History of Problems with Anesthesia: No NPO: Yes ASA Class: III Final Preanesthetic Review: Meds/Allgs Chart Reviewed, Consent Obtained/Reviewed and Anes Risks/Benef Reviewed Patient Risk: Intermediate Procedure Risk: Intermediate Anesthetic Plan Anesthetic Plan: GA Disposition: Standard PACU
[2024-01-22] VITALS (10 sets, daily range): BP systolic 110–142; BP diastolic 72–85; PULSE 64–93; RESP 14–20; TEMP 36.1; O2SAT 96–100; BMI 46.0
[2024-01-22 08:12] LABS: UPreg QC Valid YES; Urine Pregnancy NEGATIVE (NEGATIVE)
[2024-01-22] MEDS: Lactated Ringers 1,000 ML 100 ML IVCONT (08:27)
--- NOTE | 2024-01-22 10:15 | MHC.SHP ---
Pre-Procedural Eval Section A - 24 Hr Update-Section A only Date of Service: 01/22/24 The patient is an INPATIENT: No Section B - Complete if H&P > 30 days Chief Complaint: Calculus of gallbladder without cholecystitis with Relevant Family History (Specify if Yes): No Relevant Social History: None Present Medications: None Medical History: No relevant PMH History of Previous Operations: Relevant previous surgery/procedure and date(s) (laparoscopic sleeve gastrectomy) Allergies: Allergies Allergy/AdvReac Type Severity Reaction Status Date / Time No Known Allergies Allergy Verified 01/17/24 15:39 Review of Systems Sugical H&P ROS: Negative: Constitution, Cardiovascular, Respiratory, Neurological, Psychiatric, Hem-Onc, Allergic/Immunologic, Genitourinary, Musculoskeletal, Integumentary, Endocrine and Eyes/Ears/Nose/Throat and Yes, Specify: Gastrointestinal (RUQ pain) Exam Surgical H&P Exam: Normal: HEENT, Normal: Heart, Normal: Lungs, Normal: Extremities, Normal: Abdomen, Normal: Skin and Normal: Neurological Plan Diagnosis/Plan: Unchanged I have reviewed the history and physical and performed a pertinent physical examination on my patient. No changes have occurred unless specified. Time Spent With Patient Time: Total time managing care of this patient today ____ minutes.
--- NOTE | 2024-01-22 10:21 | P.BOP_ITS ---
Brief Operative Note Date of Service: 01/22/24 Pre-op diagnosis: Acute cholecystitis Post-op diagnosis: same Procedure: PROCEDURE DATE: 01/22/2024 PREOPERATIVE DIAGNOSIS: Symptomatic cholelithiasis, mid epigastric and right upper quadrant abdominal pain POSTOPERATIVE DIAGNOSIS: Same as above. PROCEDURE: Laparoscopic cholecystectomy Surgeon: Dionicio Zelaya M.D.. Ph.D. Space Operations Officer: Glenn Hartley PA-C Anesthesia: General endotracheal anesthesia Estimated blood loss: Minimal FINDINGS AND PROCEDURE: OPERATIVE INDICATIONS: The patient is a 28 year old female known to me who underwent a laparoscopic sleeve gastrectomy. The patient had remarkable weight loss so far and had a completely uneventful recovery. The patient was doing very well but has recently been complaining of persistent mid epigastric and right upper quadrant abdominal pain which is mostly postprandial. Ultrasound of the abdomen and pelvis was consistent with cholelithiasis. Based on this information we recommended laparoscopic cholecystectomy. Risks and complications of the surgery were discussed with the patient in advance particularly the possibility of conversion to an open surgery, bleeding, infection, obstruction, deep vein thrombosis or pulmonary embolism, bile leak or major bile duct injury that may require surgical intervention. The patient understood the risks and was in agreement with the plan. PROCEDURE: After informed consent was obtained by the patient, the patient was transferred to the Operating Room and was placed in the supine position. The patient was given preoperative antibiotics and after successful induction of general anesthesia, pneumatic compression devices were placed. The patient was then prepped and draped in the usual sterile manner and abdominal access was established with the Cee technique. The abdomen was insufflated with C02 to a pressure of 15 mmHg. A 5 mm Versi-step port was placed, slightly to the right and superior from the umbilicus. The 5 mm camera was introduced. We inspected the area where port had been placed and there was no injury. The patient was then placed initially in a steep reverse Trendelenburg position and three additional ports were placed, specifically a 12 mm Versi-step port just to the right of the midline below the xiphoid process and two 5 mm Versi-step ports at the right upper quadrant and right flank. At that point the patient was placed in a steep reverse Trendelenburg position tilted to the left side. The gallbladder was retracted cephalad and laterally. The peritoneal attachments of the gallbladder at the triangle ofCalot posteriorly and anteriorly were taken down. The cystic duct and artery were both seen. They werecompletely dissected free, skeletonized all the way to the infundibulum of the gallbladder . In a similarfashion we also cleaned the liver bed just behind the cystic artery to make sure there was no additional structures in this area. Once we confirmed that both structures were entering into the gallbladder and there were no other structures in the area, they were both clipped with two clips proximally, one distally and were cut in-between. We then using the electrocautery we slowly took down the gallbladder from the liver bed. Small areas of bleeding from the liver parenchyma were controlled with the cautery. After the gallbladder was completely detached from the liver bed, it was placed in an EndoCatch bag and was removed without difficulty from the xiphoid port. We then inspected the clips at the cystic duct and artery and were both in place. There was no active bleeding from the liver bed. At that point the patient was placed in supine position, we deflated the abdomen and we removed all ports under direct vision and no bleeding was noted from any of the port sites. The fascia of the 12 mm port was closed using a #1 Polysorb suture. 30cc Ropivacaine and 1% Lidocaine plain were used to infiltrate the fascial closure as well as all skin incisions. A total of 7ml Zynrelef was applied in the Cee wound. The skin was closed with 4-0 Monocryl subcuticular sutures antibiotic-coated. Steri-strips and OpSites were used to cover all incisions. The patient extubated and was transferred in stable condition to the Recovery Room for further care. I was present and performed all steps of the procedure. Mr. Hartley was the certified surgical first assistant. There were no residents to assist with this case. Dionicio Zelaya M.D., Ph.D., F.A.C.S. Surgeon: Krzysztof Zelaya MD Anesthesia: GETA, local and other (TAP block and 7ml Zynrelef) Was an Space Operations Officer used for this Procedure?: No Space Operations Officer: Glenn Hartley Estimated blood loss (mL): 10 IV fluids (mL): 1,800 Urine output (mL): 0 (No Reagan to record output) Pathology: other (Gallbladder) Condition: stable Disposition: PACU
== END 2024-01-22 14:17 | disposition home or self-care (01) ==
PROVIDERS: Nurse Practitioner; Visit Provider Surgery
PROC: 0FT44ZZ Resection of Gallbladder, Percutaneous Endoscopic Approach (ICD-10-PCS; CPT 47562; principal; 2024-01-22 10:00)
DX: K80.10 Calculus of gallbladder with chronic cholecystitis without obstruction (principal); K74.00 Hepatic fibrosis, unspecified; K76.0 Fatty (change of) liver, not elsewhere classified; K91.2 Postsurgical malabsorption, not elsewhere classified; K21.9 Gastro-esophageal reflux disease without esophagitis; E66.01 Morbid (severe) obesity due to excess calories; Z68.42 Body mass index [BMI] 45.0-49.9, adult; F90.9 Attention-deficit hyperactivity disorder, unspecified type; Z79.899 Other long term (current) drug therapy; Z98.84 Bariatric surgery status; Z90.3 Acquired absence of stomach [part of]
CPT/HCPCS: 47562; 81025; 86850; 86900; 86901; 88304; C9088; J0131; J0690; J1100; J1610; J1805; J2250; J2405; J2704; J2795; J3010

== ENCOUNTER → 2024-01-22 07:15 | Outpatient (BNV) | payer OTHER, SELFPAY | PROVIDERS: Visit Provider Surgery | DX: K80.20 Calculus of gallbladder without cholecystitis without obstruction (principal) | CPT/HCPCS: 47562 ==

== ENCOUNTER 2024-01-30 12:48 | Outpatient (AMB) | payer OTHER, SELFPAY ==
--- NOTE | 2024-01-30 12:52 | MHC.OFFVISWM ---
VS Expanded 01/30/24 13:00 BP 132/77 Blood Pressure Location Rt brachial Blood Pressure Position Sitting Pulse 93 Pulse Source Pulse Oximeter Temp 96.8 F Temperature Source Tympanic Pulse Oximetry 95 Oxygen Delivery Method Room Air Height 5 ft 5 in Weight 256 lb 9.6 oz BMI 42.7 Body Fat % 47.1 Body Fat Mass 97.4 Fat Free Mass 135.6 Visceral Fat Rating 12.0 Body Water % 38.0 Body Water Mass 97.4 Muscle Mass/Score 128.8 Basal Metabolic Rate/Score 1,966 Intake Visit Reasons: (OV) PO Lap Daniela 01/22/24 Allergies No Known Allergies Allergy (Verified 01/30/24 13:04) HPI Comments Details: Patient is a pleasant 28-year-old female who underwent laparoscopic cholecystectomy for symptomatic cholelithiasis on 01/22/2024. She reports overall doing well. No significant abdominal pain. Tolerating her meal plan as outlined by Dr. Zelaya includin celebrate 4 in 1 shakes with 2 scoops each 1 zone perfect bars Meal with 4 forks of protein and for forks of vegetables. She is also status post laparoscopic sleeve gastrectomy performed on 10/14/2023. [facility] Medical History Pre-op evaluation Fatty liver ADHD (attention deficit hyperactivity disorder) Surgical History (Updated 01/30/24 @ 13:15 by DALLAS Murry) Hx laparoscopic cholecystectomy Hx of laparoscopic partial gastrectomy History of placement of ear tubes Hx of wisdom tooth extraction Hx of adenoidectomy Hx of tonsillectomy Family History Mother High cholesterol Obesity Father High cholesterol Obesity Sister Asthma Social History Household Members: None Housing: Apartment Are you a primary critical care cns to a significant other at home: No Do you presently have visiting nurse or other home services: No Alcohol intake: current Alcohol intake frequency: does not drink Patient Tobacco Use Status: Never used Tobacco Physical Exam Vital Signs: Last Vital Signs Temp 96.8 F 01/30/24 13:00 Pulse 93 01/30/24 13:00 BP 132/77 01/30/24 13:00 Pulse Ox 95 01/30/24 13:00 Oxygen Delivery Method Room Air 01/30/24 13:00 BMI result Body Mass Index 42.7 Skin Other: Incisions clean, dry, intact. Assessment & Plan Assessment & Plan (1) S/P laparoscopic sleeve gastrectomy: Code(s): Z98.84 - Bariatric surgery status Category: Surgical Plan: Continue current meal plan. Increase exercises she is able. Follow-up in the office in 2-3 weeks (2) S/P laparoscopic cholecystectomy: Code(s): Z90.49 - Acquired absence of other specified parts of digestive tract Category: Surgical Plan: Doing well postoperatively. Discussed the role of fats within her diet as it relates to possible loose stools. Discussed the anatomy and removal of the gallbladder. She may shower although no submersion into a bath ocean [place] stream or body of water.
[2024-01-30 13:00] VITALS: BP 132/77; PULSE 93; TEMP 36; O2SAT 95; BMI 42.7
== END 2024-01-30 13:16 | disposition home or self-care (01) ==
PROVIDERS: Visit Provider Physician Assistant Surgical
DX: Z98.84 Bariatric surgery status (principal); Z90.49 Acquired absence of other specified parts of digestive tract
CPT/HCPCS: 99024

== ENCOUNTER → 2024-01-30 12:48 | Outpatient (BNVA) | payer OTHER, SELFPAY | PROVIDERS: Visit Provider Physician Assistant Surgical ==

== ENCOUNTER 2024-03-02 08:55 | Outpatient (AMB) | payer OTHER, SELFPAY ==
--- NOTE | 2024-03-02 08:56 | MHC.OFFVISWM ---
VS Expanded 03/02/24 09:02 BP 125/69 Blood Pressure Location Rt brachial Blood Pressure Position Sitting Pulse 74 Pulse Source Pulse Oximeter Temp 95.6 F L Temperature Source Tympanic Pulse Oximetry 98 Oxygen Delivery Method Room Air Height 5 ft 5 in Weight 245 lb 3.2 oz BMI 40.8 Body Fat % 44.8 Body Fat Mass 109.8 Fat Free Mass 135.4 Visceral Fat Rating 11.0 Body Water % 39.7 Body Water Mass 97.4 Muscle Mass/Score 128.6 Basal Metabolic Rate/Score 1,944 Intake Visit Reasons: (OV) PO LSG 10/14/23 Shoemaker Custom Required: No Allergies No Known Allergies Allergy (Verified 03/02/24 09:04) Medication List - Last Reconciled 03/02/24 by DALLAS Murry levonorgestrel (Mirena) intrauterine HPI Comments Details: This?a?28?yo female who is s/p LSG without hiatal hernia repair on?10/14/2023. Presents for 5 month post op visit. She is also approximately 5 weeks status post laparoscopic cholecystectomy on 01/22/2024. Weight today is 245.2 pounds, with a BMI of 40.8. There has been a 124.2 pound weight loss,(initial weight 369.4 pounds) since starting the program on 04/10/2023 reflecting a 33.6 % total body weight loss and a weight loss of 70 pounds since surgery (operative weight 315.2 pounds) reflecting a 22.2 % TBWL since surgery. No complaints of nausea, emesis, abdominal pain or reflux. Reports infrequent but normal bowel movements every 1-2 days and uses stool softeners regularly. Present meal plan includes: 2 celebrate 4 in 1 shakes with 2 scoops each, 8-10, 8-10 2 pure protein bars, 1-3, 3-5 5-6 pm Meal with 4 forks of protein and for forks of vegetables. Drinking 40 oz daily ? Exercise routine includes: walking outside 250-300 calories, daily stationary bike at home [facility] Medical History Pre-op evaluation Fatty liver ADHD (attention deficit hyperactivity disorder) Surgical History Hx laparoscopic cholecystectomy Hx of laparoscopic partial gastrectomy History of placement of ear tubes Hx of wisdom tooth extraction Hx of adenoidectomy Hx of tonsillectomy Family History Mother High cholesterol Obesity Father High cholesterol Obesity Sister Asthma Social History Household Members: None Housing: Apartment Are you a primary physician primary care sports medicine to a significant other at home: No Do you presently have visiting nurse or other home services: No Alcohol intake: current Alcohol intake frequency: does not drink Patient Tobacco Use Status: Never used Tobacco Physical Exam Const General: healthy appearing and no acute distress Resp Effort & Inspection: normal respiratory effort Auscultation: clear to auscultation bilaterally Cardio Rate: regular rate Rhythm: regular rhythm GI Auscultation: normal bowel sounds Extrem General: Yes normal to inspection Assessment & Plan Assessment & Plan (1) S/P laparoscopic sleeve gastrectomy: Code(s): Z98.84 - Bariatric surgery status Category: Surgical Plan: Tolerating meal plan but will make some changes: 2 celebrate 4 in 1 shakes with 2 scoops each, 8-10, 2-4 1 pure protein bars, 11-1 5-6 pm Meal with 4 forks of protein and for forks of vegetables. Increase exercise to use the stationary bike daily for a 1/2 hour in addition to her walking with a goal of 150-200 calories burned on the stationary bike per day. Plan to return to the office for six-month postop follow-up in March.
[2024-03-02 09:02] VITALS: BP 125/69; PULSE 74; TEMP 35.3; O2SAT 98; BMI 40.8
== END 2024-03-02 09:26 | disposition home or self-care (01) ==
PROVIDERS: Visit Provider Physician Assistant Surgical
DX: K91.2 Postsurgical malabsorption, not elsewhere classified (principal); Z98.84 Bariatric surgery status
CPT/HCPCS: 99024

== ENCOUNTER → 2024-03-02 08:55 | Outpatient (BNVA) | payer OTHER, SELFPAY | PROVIDERS: Visit Provider Physician Assistant Surgical ==

== ENCOUNTER 2024-04-13 08:10 | Outpatient (AMB) | payer OTHER, SELFPAY ==
--- NOTE | 2024-04-13 08:19 | A.OFFVIS_ITS ---
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 Presents for 6 month post op visit. She is also status post laparoscopic cholecystectomy on 01/22/2024. Weight today is 230.4 pounds, with a BMI of 38.3. There has been a 139 pound weight loss,(initial weight 369.4 pounds) since starting the program on 04/10/2023 reflecting a 37.6 % total body weight loss and a weight loss of 84.8 pounds since surgery (operative weight 315.2 pounds) reflecting a 26.9 % TBWL since surgery. No complaints of nausea, emesis, abdominal pain or reflux. Reports infrequent but normal bowel movements every 1- 2 days and uses stool softeners regularly. Present meal plan includes: 2 celebrate 4 in 1 shakes with 2 scoops each, 8-10, 2-4 1 pure protein bars, 11-1 5-6 pm Meal with 4 forks of protein and for forks of vegetables. Drinking 40-50 oz daily ? Exercise routine includes: walking outside 250-300 calories, 6 d/w stationary bike at home, 30 min, 5 d/w. 150-170 tracey Any post op complications: none GHASSAN: never DM: never HTN: never Hyperlipidemia: nver GERD:?0-5 scale ??0 = no symptoms ??1 = symptoms noticeable but not bothersome 2 =symptoms bothersome but not daily ? 3 = symptoms bothersome and daily 4 = symptoms affect daily activities 5 = symptoms are incapacitating, unable to do daily activities ? How bad is the heartburn: 0 ? Heartburn while lying down:0 ? Heartburn when standing up: 0 ? Heartburn after meals: 0 ? Does heartburn change your diet: 0 ? Does heartburn wake you up from sleep: 0 ? Do you have difficulty swallowin ? Do you have pain with swallowin ? If you take medicine for your reflux, does this affect your daily life: 0 Satisfaction with present condition - satisfied or not satisfied: satisfied [facility] Medical History Pre-op evaluation Fatty liver ADHD (attention deficit hyperactivity disorder) Surgical History Hx laparoscopic cholecystectomy Hx of laparoscopic partial gastrectomy History of placement of ear tubes Hx of wisdom tooth extraction Hx of adenoidectomy Hx of tonsillectomy Family History Mother High cholesterol Obesity Father High cholesterol Obesity Sister Asthma Social History Household Members: None Housing: Apartment Are you a primary vehicle care specialist to a significant other at home: No Do you presently have visiting nurse or other home services: No Alcohol intake: current Alcohol intake frequency: does not drink Patient Tobacco Use Status: Never used Tobacco Physical Exam Const General: cooperative and no acute distress Orientation/consciousness: patient oriented x3 Resp Effort & Inspection: normal respiratory effort Auscultation: clear to auscultation bilaterally Cardio Rate: regular rate Rhythm: regular rhythm GI Inspection: Yes normal to inspection and Yes incision (well healed) Palpation (GI): Soft to palpation and no masses Neuro General: patient oriented x3 Assessment & Plan Assessment & Plan (1) S/P laparoscopic sleeve gastrectomy: Code(s): Z98.84 - Bariatric surgery status Category: Surgical Plan: Overall, patient is doing quite well. She would like to maintain her current meal plan. She will continue to exercise with a goal of burning 300 calories per day or 2000 calories per week. We will check six-month postop labs. We will arrange for follow-up visits. She will continue to text with any questions or concerns. Orders: Orders Complete Blood Count Auto Diff Today K74.00 - Hepatic fibrosis, unspecified, K76.9 - Liver disease, unspecified, K91.2 - Postsurgical malabsorption, not elsewhere classified, Z90.3 - Acquired absence of stomach [part of], Z90.49 - Acquired absence of other specified parts of digestive tract, Z98.84 - Bariatric surgery status Lipid Panel Today K74.00 - Hepatic fibrosis, unspecified, K76.9 - Liver disease, unspecified, K91.2 - Postsurgical malabsorption, not elsewhere classified, Z90.3 - Acquired absence of stomach [part of], Z90.49 - Acquired absence of other specified parts of digestive tract, Z98.84 - Bariatric surgery status Vitamin B12 and Folate Today K74.00 - Hepatic fibrosis, unspecified, K76.9 - Liver disease, unspecified, K91.2 - Postsurgical malabsorption, not elsewhere classified, Z90.3 - Acquired absence of stomach [part of], Z90.49 - Acquired absence of other specified parts of digestive tract, Z98.84 - Bariatric surgery status Zinc Today K74.00 - Hepatic fibrosis, unspecified, K76.9 - Liver disease, unspecified, K91.2 - Postsurgical malabsorption, not elsewhere classified, Z90.3 - Acquired absence of stomach [part of], Z90.49 - Acquired absence of other specified parts of digestive tract, Z98.84 - Bariatric surgery status C Reactive Protein Today K74.00 - Hepatic fibrosis, unspecified, K76.9 - Liver disease, unspecified, K91.2 - Postsurgical malabsorption, not elsewhere classified, Z90.3 - Acquired absence of stomach [part of], Z90.49 - Acquired absence of other specified parts of digestive tract, Z98.84 - Bariatric surgery status Vitamin D 25-OH Total Today K74.00 - Hepatic fibrosis, unspecified, K76.9 - Liver disease, unspecified, K91.2 - Postsurgical malabsorption, not elsewhere classified, Z90.3 - Acquired absence of stomach [part of], Z90.49 - Acquired absence of other specified parts of digestive tract, Z98.84 - Bariatric surgery status Basic Metabolic Panel Today K74.00 - Hepatic fibrosis, unspecified, K76.9 - L iver disease, unspecified, K91.2 - Postsurgical malabsorption, not elsewhere classified, Z90.3 - Acquired absence of stomach [part of], Z90.49 - Acquired absence of other specified parts of digestive tract, Z98.84 - Bariatric surgery status Insulin Today K74.00 - Hepatic fibrosis, unspecified, K76.9 - Liver disease, unspecified, K91.2 - Postsurgical malabsorption, not elsewhere classified, Z90.3 - Acquired absence of stomach [part of], Z90.49 - Acquired absence of other specified parts of digestive tract, Z98.84 - Bariatric surgery status Hemoglobin A1c Today K74.00 - Hepatic fibrosis, unspecified, K76.9 - Liver disease, unspecified, K91.2 - Postsurgical malabsorption, not elsewhere classified, Z90.3 - Acquired absence of stomach [part of], Z90.49 - Acquired absence of other specified parts of digestive tract, Z98.84 - Bariatric surgery status IRON PROFILE Today K74.00 - Hepatic fibrosis, unspecified, K76.9 - Liver disease, unspecified, K91.2 - Postsurgical malabsorption, not elsewhere classified, Z90.3 - Acquired absence of stomach [part of], Z90.49 - Acquired absence of other specified parts of digestive tract, Z98.84 - Bariatric surgery status Vitamin B1 Today K74.00 - Hepatic fibrosis, unspecified, K76.9 - Liver disease, unspecified, K91.2 - Postsurgical malabsorption, not elsewhere classified, Z90.3 - Acquired absence of stomach [part of], Z90.49 - Acquired absence of other specified parts of digestive tract, Z98.84 - Bariatric surgery status Vitamin A Today K74.00 - Hepatic fibrosis, unspecified, K76.9 - Liver disease, unspecified, K91.2 - Postsurgical malabsorption, not elsewhere classified, Z90.3 - Acquired absence of stomach [part of], Z90.49 - Acquired absence of other specified parts of digestive tract, Z98.84 - Bariatric surgery status TSH reflex Free T4 Today K74.00 - Hepatic fibrosis, unspecified, K76.9 - Liver disease, unspecified, K91.2 - Postsurgical malabsorption, not elsewhere classified, Z90.3 - Acquired absence of stomach [part of], Z90.49 - Acquired absence of other specified parts of digestive tract, Z98.84 - Bariatric surgery status Ferritin Today K74.00 - Hepatic fibrosis, unspecified, K76.9 - Liver disease, unspecified, K91.2 - Postsurgical malabsorption, not elsewhere classified, Z90.3 - Acquired absence of stomach [part of], Z90.49 - Acquired absence of other specified parts of digestive tract, Z98.84 - Bariatric surgery status
[2024-04-13 08:27] VITALS: BP 121/71; PULSE 111; TEMP 35.9; O2SAT 97; BMI 38.3
== END 2024-04-13 08:44 | disposition home or self-care (01) ==
PROVIDERS: Visit Provider Physician Assistant Surgical
DX: K91.2 Postsurgical malabsorption, not elsewhere classified (principal); Z98.84 Bariatric surgery status
CPT/HCPCS: 99024

== ENCOUNTER → 2024-04-13 08:10 | Outpatient (BNVA) | payer OTHER, SELFPAY | PROVIDERS: Visit Provider Physician Assistant Surgical ==

== ENCOUNTER 2024-04-19 08:11 | Outpatient (REF) | payer OTHER, SELFPAY ==
[2024-04-19 08:27] LABS: MANUAL DIFF FLAG NO
[2024-04-19 09:18] LABS: Basophils Absolute Auto 0.1 X10*3/uL (0.0-0.2); Basophils Percent Auto 0.6 % (0-2); Eosinophils Absolute Auto 0.2 X10*3/uL (0.0-0.4); Eosinophils Percent Auto 2.1 % (0-4); Hematocrit 41.7 % (37.0-47.0); Hemoglobin 13.1 g/dl (12.0-16.0); Imm Gran Abs Auto 0.03 X10*3/uL (0.00-0.03); Imm Gran Pct Auto 0.4 % (0.0-0.4); Lymphocytes Absolute Auto 2.2 X10*3/uL (1.2-4.9); Lymphocytes Percent Auto 26.3 % (20-40); Mean Corpuscular HGB Conc 31.4 g/dl (31.0-35.0); Mean Corpuscular Volume 82.9 fL (80.0-98.0); Mean Platelet Volume 10.9 fL (9.4-12.3); Monocytes Absolute Auto 0.5 X10*3/uL (0.1-1.2); Monocytes Percent Auto 5.8 % (2-11); Neutrophils Absolute Auto 5.5 x10*3/uL (2.0-8.3); Neutrophils Percent Auto 64.8 % (45-73); Platelet Count 449 X10*3/uL (160-400); Red Blood Count 5.03 X10*6/uL (4.20-5.50); Red Cell Distribution Width 15.7 % (11.0-16.0); White Blood Count 8.4 X10*3/uL (4.8-10.8)
[2024-04-19 09:27] LABS: Estimated Average Glucose 91 mg/dL; Hemoglobin A1c % 4.8 % (<6.0)
[2024-04-19 09:50] LABS: Anion Gap 16 (12-20); Blood Urea Nitrogen 12 mg/dL (9-16); C Reactive Protein 3.29 mg/dL (< or = 0.50); Calcium 9.7 mg/dL (8.4-10.2); Carbon Dioxide 24 mmol/L (22-29); Chloride 106 mmol/L (96-108); Cholesterol 179 mg/dL (<200); Estimated Glomerular Filt Rate > 60; Glucose Random 79 mg/dL (60-115); HDL Cholesterol 30 mg/dL (>40); Iron 41 mcg/dL (30-160); LDL Cholesterol Calculated 131 mg/dL (<100); Percent Iron Saturation 14 % (15-50); Potassium 3.7 mmol/L (3.3-5.1); Sodium 142 mmol/L (135-145); Total Iron Binding Capacity 284 mcg/dL (228-428); Triglycerides 94 mg/dL (<150); Unsaturated Iron Binding 243 ug/dL
[2024-04-19 10:19] LABS: Ferritin 38 ng/mL (10-122); TSH reflex Free T4 3.18 uIU/mL (0.32-4.0); Vitamin D 25-OH Total 54.2 ng/mL (>30)
[2024-04-19 10:37] LABS: Insulin 8 uU/mL (2-29)
[2024-04-19 13:05] LABS: Folate 5.9 ng/mL (> or = 4.0); Vitamin B12 940 pg/mL (200-900)
[2024-04-22 16:58] LABS: Vitamin A 41 mcg/dL (38-98)
[2024-04-22 17:29] LABS: Zinc 72 mcg/dL (60-130)
[2024-04-24 10:58] LABS: Vitamin B1 16 nmol/L (8-30)
== END 2024-04-19 08:12 | disposition home or self-care (01) ==
LOC: HO.LAB 08:11
PROVIDERS: Visit Provider Physician Assistant Surgical
DX: Z90.49 Acquired absence of other specified parts of digestive tract (principal); K91.2 Postsurgical malabsorption, not elsewhere classified; Z90.3 Acquired absence of stomach [part of]; Z98.84 Bariatric surgery status; K74.00 Hepatic fibrosis, unspecified; K76.9 Liver disease, unspecified
CPT/HCPCS: 36415; 80048; 80061; 82306; 82607; 82728; 82746; 83036; 83525; 83540; 84425; 84443; 84590; 84630; 85025; 86140

== ENCOUNTER 2024-05-24 08:50 | Outpatient (AMB) | payer OTHER, SELFPAY ==
[2024-05-24 08:35] VITALS: BMI 36.6
--- NOTE | 2024-05-24 08:35 | MHC.OFFVISWM ---
VS Expanded 05/24/24 08:35 Height 5 ft 5 in Weight 220 lb 4 oz BMI 36.6 Body Fat % 46.3 Body Fat Mass 102 Fat Free Mass 118.2 Visceral Fat Rating 19 Body Water % 36.8 Body Water Mass 81.1 Muscle Mass/Score 111.4 Intake Visit Reasons: tele PO LSG 10/14/23 Allergies No Known Allergies Allergy (Verified 04/13/24 08:34) HPI Comments Details: This?a?28?yo female who is s/p LSG without hiatal hernia repair on?10/14/2023. Presents for 7 month post op visit. She is also status post laparoscopic cholecystectomy on 01/22/2024. Weight today is 220.4 pounds, with a BMI of 36.7. There has been a 149 pound weight loss,(initial weight 369.4 pounds) since starting the program on 04/10/2023 reflecting a 40.3 % total body weight loss and a weight loss of 94.8 pounds since surgery (operative weight 315.2 pounds) reflecting a 30 % TBWL since surgery. No complaints of nausea, emesis, abdominal pain or reflux. Reports infrequent but normal bowel movements every 2 days. She feels as though things are going well. She feels great and is doing well with the meal plan. Present meal plan includes: 2 celebrate 4 in 1 shakes with 2 scoops each, 8-10, 2-4 1 pure protein bars, 11-1 5-6 pm Meal with 4 forks of protein and 4 forks of vegetables. Drinking 40 oz daily ? Exercise routine includes: walking outside 250-300 calories, 5-6 d/w stationary bike at home, 30 min, 4-5 d/w. 150 tracey light yoga 1 x per week COUNT INCLUDES THE [facility] Medical History Pre-op evaluation Fatty liver ADHD (attention deficit hyperactivity disorder) Surgical History Hx laparoscopic cholecystectomy Hx of laparoscopic partial gastrectomy History of placement of ear tubes Hx of wisdom tooth extraction Hx of adenoidectomy Hx of tonsillectomy Family History Mother High cholesterol Obesity Father High cholesterol Obesity Sister Asthma Social History Household Members: None Housing: Apartment Are you a primary director of healthcare systems to a significant other at home: No Do you presently have visiting nurse or other home services: No Alcohol intake: current Alcohol intake frequency: does not drink Patient Tobacco Use Status: Never used Tobacco Telehealth Telehealth Telehealth Platform: Telephone Location of provider rendering services: practice address Location of patient: address on file Patient Identification confirmed using: Name, : Yes Telehealth method: voice only Patient verbally consented to treatment: Yes Patient verbally consented to billing insurance company: Yes Patient informed of any privacy concerns related to visit: Yes Minutes spent on Phone/Video with Pt.: 20 Assessment & Plan Assessment & Plan (1) S/P laparoscopic sleeve gastrectomy: Code(s): Z98.84 - Bariatric surgery status Category: Surgical Plan: Making good progress overall. Discussed ways to improve including increasing calories burned during the use of her stationary bike and decreasing the time it takes for her to walk her to mi outdoor walking exercise routine. Noting a goal of approximately 400-450 calories per exercise session, 4-5 days per week. If she can get in 6 days, that would be great. She will continue her current meal plan as she is satisfied with this. We did discuss her labs showing slightly low iron and encouraged addition of green leafy vegetables as well as a fiber gummy to assist with some mild constipation. Encouraged to text weekly and with any questions or concerns. We will have her return to the office in approximately 1 month.
== END 2024-05-24 09:01 | disposition home or self-care (01) ==
LOC: HO.HBS 08:50
PROVIDERS: Visit Provider Physician Assistant Surgical
DX: E66.9 Obesity, unspecified (principal); Z68.36 Body mass index [BMI] 36.0-36.9, adult; Z90.3 Acquired absence of stomach [part of]; Z98.84 Bariatric surgery status
CPT/HCPCS: 98967

== ENCOUNTER → 2024-05-24 08:50 | Outpatient (BNVA) | payer OTHER, SELFPAY | PROVIDERS: Visit Provider Physician Assistant Surgical | DX: Z90.49 Acquired absence of other specified parts of digestive tract (principal); K91.2 Postsurgical malabsorption, not elsewhere classified; Z90.3 Acquired absence of stomach [part of]; Z98.84 Bariatric surgery status; K74.00 Hepatic fibrosis, unspecified; K76.9 Liver disease, unspecified ==

== ENCOUNTER 2024-06-25 11:00 | Outpatient (AMB) | payer OTHER, SELFPAY ==
[2024-06-25 11:08] VITALS: BMI 35.1
--- NOTE | 2024-06-25 11:08 | A.OFFVIS_ITS ---
VS Expanded 06/25/24 11:08 Height 5 ft 5 in Weight 211 lb BMI 35.1 Body Fat % 43.8 Fat Free Mass 118.6 Visceral Fat Rating 17 Body Water % 38.6 Intake Visit Reasons: tele PO LSG 10/14/23 Cat And Dog Bather Required: No Allergies No Known Allergies Allergy (Verified 04/13/24 08:34) Medication List - Last Reconciled 06/25/24 by DALLAS Murry levonorgestrel (Mirena) intrauterine HPI Comments Details: This?a?28?yo female who is s/p LSG without hiatal hernia repair on?10/14/2023. Presents for 8 month post op visit. She is also status post laparoscopic cholecystectomy on 01/22/2024. Weight today is 211 pounds, with a BMI of 35.1. There has been a 158.4 pound weight loss,(initial weight 369.4 pounds) since starting the program on 04/10/2023 reflecting a 42.8 % total body weight loss and a weight loss of 104.2 pounds since surgery (operative weight 315.2 pounds) reflecting a 33 % TBWL since surgery. No complaints of nausea, emesis, abdominal pain or reflux. Reports infrequent but normal bowel movements every 1- 2 days. She feels as though things are going well. She feels great and is doing well with the meal plan. Reports goal of 2 mile AM walks, stationary bike in the evening. Continue home yoga Present meal plan includes: 2 celebrate 4 in 1 shakes with 2 scoops each, 8-10, 2-4 1 pure protein bars, 11-1 5-6 pm Meal with 4 forks of protein and 4 forks of vegetables. Drinking 40-50 oz daily ? Exercise routine includes: active in life but not as specific with structured exercise walking outside 250-300 calories, 5-6 d/w stationary bike at home, 30 min, 4-5 d/w. 150 tracey light yoga 1 x per week [facility] Medical History Pre-op evaluation Fatty liver ADHD (attention deficit hyperactivity disorder) Surgical History Hx laparoscopic cholecystectomy Hx of laparoscopic partial gastrectomy History of placement of ear tubes Hx of wisdom tooth extraction Hx of adenoidectomy Hx of tonsillectomy Family History Mother High cholesterol Obesity Father High cholesterol Obesity Sister Asthma Social History Household Members: None Housing: Apartment Are you a primary caregivers non medical to a significant other at home: No Do you presently have visiting nurse or other home services: No Alcohol intake: current Alcohol intake frequency: does not drink Patient Tobacco Use Status: Never used Tobacco Telehealth Telehealth Telehealth Platform: Telephone Location of provider rendering services: practice address Location of patient: address on file Patient Identification confirmed using: Name, : Yes Telehealth method: voice only Patient verbally consented to treatment: Yes Patient verbally consented to billing insurance company: Yes Patient informed of any privacy concerns related to visit: Yes Minutes spent on Phone/Video with Pt.: 15 Assessment & Plan Assessment & Plan (1) S/P laparoscopic sleeve gastrectomy: Code(s): Z98.84 - Bariatric surgery status Category: Surgical Plan: Patient continues to do very well. She is very mindful of what she is eating an d drinking. She did have a decrease in her structured exercise plan as her mother was visiting for the last month. She will return to a more structured plan including stationary bike nightly for a goal of 250 calories burn as well as walking 2 miles daily. We will change her meal plans slightly: 2 celebrate 4 in 1 shakes with 2 scoops each, 8-10, 2-4 1/2 pure protein bar 11-1 or 12 g protein [place] yogurt 5-6 pm Meal with 4 forks of protein and 4 forks of vegetables. She reports that she is very satisfied with her meal plan and does not wish to change it at this time. We will have her return to the office in approximately 1 month. She was encouraged to continue to text weights weekly and with any questions or concerns.
== END 2024-06-25 11:25 | disposition home or self-care (01) ==
LOC: HO.HBS 11:21
PROVIDERS: Visit Provider Physician Assistant Surgical
DX: E66.9 Obesity, unspecified (principal); Z68.35 Body mass index [BMI] 35.0-35.9, adult; Z90.3 Acquired absence of stomach [part of]; Z98.84 Bariatric surgery status
CPT/HCPCS: 99442

== ENCOUNTER → 2024-06-25 11:00 | Outpatient (BNVA) | payer OTHER, SELFPAY | PROVIDERS: Visit Provider Physician Assistant Surgical | DX: Z90.49 Acquired absence of other specified parts of digestive tract (principal); K91.2 Postsurgical malabsorption, not elsewhere classified; Z90.3 Acquired absence of stomach [part of]; Z98.84 Bariatric surgery status; K74.00 Hepatic fibrosis, unspecified; K76.9 Liver disease, unspecified ==

== ENCOUNTER 2024-07-29 09:00 | Outpatient (AMB) | payer OTHER, SELFPAY ==
--- NOTE | 2024-07-29 09:03 | A.OFFVIS_ITS ---
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 Presents for 9 month post op visit. She is also status post laparoscopic cholecystectomy on 01/22/2024. Weight today is 199.6 pounds, with a BMI of 33.2. There has been a 169.8 pound weight loss,(initial weight 369.4 pounds) since starting the program on 04/10/2023 reflecting a 45.9 % total body weight loss and a weight loss of 115.6 pounds since surgery (operative weight 315.2 pounds) reflecting a 36.6 % TBWL since surgery. No complaints of nausea, emesis, abdominal pain or reflux. Reports infrequent but normal bowel movements every 1- 2 days. She feels as though things are going well. She feels great and is doing well with the meal plan. Reports goal of 2 mile AM walks, stationary bike in the evening. Continue home yoga She states that she has been having difficulty with the excess skin of her abdomen, arms and medial thigh. She describes the discomfort as somewhat painful, she has had intermittent rashes to the abdominal pannus. She additionally states that it is uncomfortable at night when she is trying to sleep. Clothes are ill-fitting and this causes her discomfort, especially with increased exercise and activity. She has been treating her abdominal rash with [id number] powder with limited success. Only to have recurrence. Present meal plan includes: 2 celebrate 4 in 1 shakes with 2 scoops each, 8-10, 2-4 1/2 pure protein bar 11-1 or 12 g protein [place] yogurt 5-6 pm Meal with 4 forks of protein and 4 forks of vegetables. Drinking 40-50 oz daily ? Exercise routine includes: walking outside 2 miles, 200-225 calories, 5-6 d/w stationary bike at home, 40-45 min, 4-5 d/w. 210 tracey yoga 1-2 x per week [facility] Medical History Pre-op evaluation Fatty liver ADHD (attention deficit hyperactivity disorder) Surgical History Hx laparoscopic cholecystectomy Hx of laparoscopic partial gastrectomy History of placement of ear tubes Hx of wisdom tooth extraction Hx of adenoidectomy Hx of tonsillectomy Family History Mother High cholesterol Obesity Father High cholesterol Obesity Sister Asthma Social History Household Members: None Housing: Apartment Are you a primary manager medicare to a significant other at home: No Do you presently have visiting nurse or other home services: No Alcohol intake: current Alcohol intake frequency: does not drink Patient Tobacco Use Status: Never used Tobacco Physical Exam Vital Signs: Last Vital Signs Temp 97.1 F 07/29/24 09:11 Pulse 76 07/29/24 09:11 BP 125/78 07/29/24 09:11 Pulse Ox 99 07/29/24 09:11 Oxygen Delivery Method Room Air 07/29/24 09:11 BMI result Body Mass Index 33.2 Const General: healthy appearing and no acute distress Resp Effort & Inspection: normal respiratory effort Auscultation: clear to auscultation bilaterally Cardio Rate: regular rate Rhythm: regular rhythm GI Auscultation: normal bowel sounds Extrem General: Yes normal to inspection Assessment & Plan Assessment & Plan (1) S/P laparoscopic sleeve gastrectomy: Code(s): Z98.84 - Bariatric surgery status Category: Surgical Plan: Patient wishes to continue her current meal plan. She can remove the half protein bar or yogurt and increase her evening meal to 6 forks of protein and 6 of vegetables. She was enquiring about possibly switching to a different shake product although not yet. We discussed the importance of a multivitamin and calcium plus D in the case. Additionally, given her excess skin and tremendous weight loss, we discussed the possibility of skin removal surgery. She does appear to have medical necessity although we will continue to wait approximately 18 months after surgery so she achieves a healthy weight. In the meantime, I have sent in a prescription for an antifungal to be applied as needed. Medications: New clotrimazole 1% (Antifungal (clotrimazole)) 1 appl topical BID 45 grams 2RF
[2024-07-29 09:11] VITALS: BP 125/78; PULSE 76; TEMP 36.2; O2SAT 99; BMI 33.2
== END 2024-07-29 09:36 | disposition home or self-care (01) ==
LOC: HO.HBS 09:01
PROVIDERS: Visit Provider Physician Assistant Surgical
DX: E66.811 Obesity, class 1 (principal); Z68.33 Body mass index [BMI] 33.0-33.9, adult; Z90.3 Acquired absence of stomach [part of]; Z98.84 Bariatric surgery status
CPT/HCPCS: 99213

== ENCOUNTER → 2024-07-29 09:00 | Outpatient (BNVA) | payer OTHER, SELFPAY | PROVIDERS: Visit Provider Physician Assistant Surgical | DX: Z90.49 Acquired absence of other specified parts of digestive tract (principal); K91.2 Postsurgical malabsorption, not elsewhere classified; Z90.3 Acquired absence of stomach [part of]; Z98.84 Bariatric surgery status; K74.00 Hepatic fibrosis, unspecified; K76.9 Liver disease, unspecified ==

== ENCOUNTER 2024-09-03 11:30 | Outpatient (AMB) | payer OTHER, SELFPAY ==
--- NOTE | 2024-09-03 09:20 | MHC.OFFVISWM ---
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 Presents for 11 month post op visit. She is also status post laparoscopic cholecystectomy on 01/22/2024. Weight today is 196.4 pounds, with a BMI of 32.7. There has been a 173 pound weight loss,(initial weight 369.4 pounds) since starting the program on 04/10/2023 reflecting a 46.8 % total body weight loss and a weight loss of 118.8 pounds since surgery (operative weight 315.2 pounds) reflecting a 37.6 % TBWL since surgery. No complaints of nausea, emesis, abdominal pain or reflux. Reports infrequent but normal bowel movements every 1-2 days. She feels as though things are going well. She feels great and is doing well with the meal plan. Reports goal of 2 mile AM walks, stationary bike in the evening. Continue home yoga She states that she has been having difficulty with the excess skin of her abdomen, arms and medial thigh. She describes the discomfort as somewhat painful, she has had intermittent rashes to the abdominal pannus. She additionally states that it is uncomfortable at night when she is trying to sleep. Clothes are ill-fitting and this causes her discomfort, especially with increased exercise and activity. She has been treating her abdominal rash with [id number] powder with limited success. Only to have recurrence. Since her last visit she has had 1 recurrence of her rash. Present meal plan includes: 2 celebrate 4 in 1 shakes with 2 scoops each, 8-10, 2-4 5-6 pm Meal with 6 forks of protein and 6 forks of vegetables. Drinking 40 oz daily in addition ? Exercise routine includes: walking outside 2 miles, 250 calories, 2 d/week stationary bike at home, 30-45 min, 5-6 d/week. 210 tracey yoga 1-2 x per week PFSH Medical History Pre-op evaluation Fatty liver ADHD (attention deficit hyperactivity disorder) Surgical History Hx laparoscopic cholecystectomy Hx of laparoscopic partial gastrectomy History of placement of ear tubes Hx of wisdom tooth extraction Hx of adenoidectomy Hx of tonsillectomy Family History Mother High cholesterol Obesity Father High cholesterol Obesity Sister Asthma Social History Household Members: None Housing: Apartment Are you a primary critical care physician assistant to a significant other at home: No Do you presently have visiting nurse or other home services: No Alcohol intake: current Alcohol intake frequency: does not drink Patient Tobacco Use Status: Never used Tobacco Telehealth Telehealth Telehealth Platform: Telephone Location of provider rendering services: practice address Location of patient: address on file Patient Identification confirmed using: Name, : Yes Telehealth method: voice only Patient verbally consented to treatment: Yes Patient verbally consented to billing insurance company: Yes Patient informed of any privacy concerns related to visit: Yes Minutes spent on Phone/Video with Pt.: 15 Assessment & Plan Assessment & Plan (1) S/P laparoscopic sleeve gastrectomy: Code(s): Z98.84 - Bariatric surgery status Category: Surgical Plan: Patient is doing well overall. She is very satisfied with her meal plan on weight loss. She is applying clotrimazole as needed for rash. We will have her return to the office in approximately 1 month. Encouraged to text with any questions or concerns.
[2024-09-03 09:22] VITALS: BMI 32.7
== END 2024-09-03 11:53 | disposition home or self-care (01) ==
LOC: HO.HBS 11:46
PROVIDERS: Visit Provider Physician Assistant Surgical
DX: E66.811 Obesity, class 1 (principal); Z68.32 Body mass index [BMI] 32.0-32.9, adult; Z98.84 Bariatric surgery status
CPT/HCPCS: 98967

== ENCOUNTER 2024-10-15 08:43 | Outpatient (AMB) | payer OTHER, SELFPAY ==
--- NOTE | 2024-10-15 08:54 | MHC.OFFVISWM ---
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 Presents for 1 year post op visit. She is also status post laparoscopic cholecystectomy on 01/22/2024. Weight today is 189.4 pounds, with a BMI of 31.5. There has been a 180 pound weight loss,(initial weight 369.4 pounds) since starting the program on 04/10/2023 reflecting a 48.7 % total body weight loss and a weight loss of 125.8 pounds since surgery (operative weight 315.2 pounds) reflecting a 39.9 % TBWL since surgery. No complaints of nausea, emesis, abdominal pain or reflux. Reports infrequent but normal bowel movements every 1-2 days and uses stool softeners regularly. She feels as though things are going well. She feels great and is doing well with the meal plan. She continues her meal plan and does not wish to change this point. She states that she has been having difficulty with the excess skin of her abdomen, arms and medial thigh. She describes the discomfort as somewhat painful, she has had intermittent rashes to the abdominal pannus. She additionally states that it is uncomfortable at night when she is trying to sleep. Clothes are ill-fitting and this causes her discomfort, especially with increased exercise and activity. She has been treating her abdominal rash with Rx antifungal with success. Only to have recurrence. The excess skin of her thighs also causes irritation with increased activity and warmer temperatures. Reports approximately 5-6 episodes of rash within the last 6 months. She reports that her abdominal skin causes the most discomfort followed very closely by the excess skin of her legs, then arms. Present meal plan includes: 2 celebrate 4 in 1 shakes with 2 scoops each, 8-10, 2-4 5-6 pm Meal with 6 forks of protein and 6 forks of vegetables. Drinking 40 oz daily in addition ? Exercise routine includes: walking treadmill at home 2-4 miles, 250-500 calories, 7 d/week, speed 3-3.8, incline 1-3 yoga 1 x per week Any post op complications: none GHASSAN: never DM: never HTN: never Hyperlipidemia: nver GERD:?0-5 scale ??0 = no symptoms ??1 = symptoms noticeable but not bothersome 2 =symptoms bothersome but not daily ? 3 = symptoms bothersome and daily 4 = symptoms affect daily activities 5 = symptoms are incapacitating, unable to do daily activities ? How bad is the heartburn: 0 ? Heartburn while lying down:0 ? Heartburn when standing up: 0 ? Heartburn after meals: 0 ? Does heartburn change your diet: 0 ? Does heartburn wake you up from sleep: 0 ? Do you have difficulty swallowin ? Do you have pain with swallowin ? If you take medicine for your reflux, does this affect your daily life: 0 Satisfaction with present condition - satisfied or not satisfied: satisfied [facility] Medical History Pre-op evaluation Fatty liver ADHD (attention deficit hyperactivity disorder) Surgical History Hx laparoscopic cholecystectomy Hx of laparoscopic partial gastrectomy History of placement of ear tubes Hx of wisdom tooth extraction Hx of adenoidectomy Hx of tonsillectomy Family History Mother High cholesterol Obesity Father High cholesterol Obesity Sister Asthma Social History Household Members: None Housing: Apartment Are you a primary senior care provider to a significant other at home: No Do you presently have visiting nurse or other home services: No Alcohol intake: current Alcohol intake frequency: does not drink Patient Tobacco Use Status: Never used Tobacco Physical Exam Const General: cooperative and no acute distress Orientation/consciousness: patient oriented x3 Resp Effort & Inspection: normal respiratory effort Auscultation: clear to auscultation bilaterally Cardio Rate: regular rate Rhythm: regular rhythm GI Inspection: Yes normal to inspection and Yes incision (well healed) Palpation (GI): Soft to palpation and no masses Skin Other: Excess skin of the arms without obvious rash. Excess skin of the abdomen, pannus grade 2/3 with evidence of history of rash by way of irritated skin within the groin. Excess skin of bilateral medial thighs with evidence of redness proximally, medially with some slight skin thickening. Neuro General: patient oriented x3 Assessment & Plan Assessment & Plan (1) S/P laparoscopic sleeve gastrectomy: Code(s): Z98.84 - Bariatric surgery status Category: Surgical Plan: Check yearly labs Continue meal plan Add stationary bike 1-2 days per week Increase calories burned to consistently 400+ per day Return to clinic 3 months Encouraged to continue to send weight is and text with any questions or concerns (2) Excess skin: Code(s): L98.7 - Excessive and redundant skin and subcutaneous tissue Category: Medical Plan: Continue antifungal as needed. Discussed skin removal surgery Given the recurrent rash and excessive weight loss, she will need medically necessary skin removal surgery of her abdomen, legs, arms. In that order or combination of abdomen and legs then arms. She has had multiple recurrent rashes and interference in activities of daily living with increased pain and ill fitting clothes as well as recurrent rashes above despite treatment with antifungal topical prescription medication. We will continue to follow clinically as she achieves a healthy and stable weight, submit to insurance at 18 months postoperatively if other conditions are met. Orders: Orders Insulin Today K76.9 - Liver disease, unspecified, Z98.84 - Bariatric surgery status Hemoglobin A1c Today K76.9 - Liver disease, unspecified, Z98.84 - Bariatric surgery status Complete Blood Count Auto Diff Today K76.9 - Liver disease, unspecified, Z98.84 - Bariatric surgery status Vitamin B1 Today K76.9 - Liver disease, unspecified, Z98.84 - Bariatric surgery status TSH reflex Free T4 Today K76.9 - Liver disease, unspecified, Z98.84 - Bariatric surgery status Vitamin D 25-OH Total Today K76.9 - Liver disease, unspecified, Z98.84 - Bariatric surgery status Lipid Panel Today K76.9 - Liver disease, unspecified, Z98.84 - Bariatric surgery status IRON PROFILE Today K76.9 - Liver disease, unspecified, Z98.84 - Bariatric surgery status Comprehensive Met. Panel Today K76.9 - Liver disease, unspecified, Z98.84 - Bariatric surgery status Vitamin B12 and Folate Today K76.9 - Liver disease, unspecified, Z98.84 - Bariatric surgery status Zinc Today K76.9 - Liver disease, unspecified, Z98.84 - Bariatric surgery status C Reactive Protein Today K76.9 - Liver disease, unspecified, Z98.84 - Bariatric surgery status Vitamin A Today K76.9 - Liver disease, unspecified, Z98.84 - Bariatric surgery status Ferritin Today K76.9 - Liver disease, unspecified, Z98.84 - Bariatric surgery status
[2024-10-15 08:57] VITALS: BP 115/65; PULSE 62; TEMP 36.7; O2SAT 100; BMI 31.5
== END 2024-10-15 09:30 | disposition home or self-care (01) ==
PROVIDERS: Visit Provider Physician Assistant Surgical
DX: L98.7 Excessive and redundant skin and subcutaneous tissue (principal); Z90.3 Acquired absence of stomach [part of]; Z98.84 Bariatric surgery status
CPT/HCPCS: 99214

== ENCOUNTER 2024-10-15 08:43 | Outpatient (REF) | payer OTHER, SELFPAY ==
[2024-10-15 09:58] LABS: MANUAL DIFF FLAG NO
[2024-10-15 10:42] LABS: Estimated Average Glucose 94 mg/dL; Hemoglobin A1C 108.0053 umol/L; Hemoglobin A1c % 4.9 % (<6.0); Total Hemoglobin (HGBA1C) 3568.8818 umol/L
[2024-10-15 10:43] LABS: Basophils Absolute Auto 0.1 X10*3/uL (0.0-0.2); Basophils Percent Auto 0.9 % (0-2); Eosinophils Absolute Auto 0.2 X10*3/uL (0.0-0.4); Eosinophils Percent Auto 2.2 % (0-4); Hematocrit 41.6 % (37.0-47.0); Hemoglobin 13.7 g/dl (12.0-16.0); Imm Gran Abs Auto 0.02 X10*3/uL (0.00-0.03); Imm Gran Pct Auto 0.3 % (0.0-0.4); Lymphocytes Absolute Auto 2.8 X10*3/uL (1.2-4.9); Lymphocytes Percent Auto 41.8 % (20-40); Mean Corpuscular HGB Conc 32.9 g/dl (31.0-35.0); Mean Corpuscular Hemoglobin 27.7 pg (27.0-33.0); Mean Corpuscular Volume 84.2 fL (80.0-98.0); Mean Platelet Volume 9.9 fL (9.4-12.3); Monocytes Absolute Auto 0.4 X10*3/uL (0.1-1.2); Monocytes Percent Auto 5.9 % (2-11); Neutrophils Absolute Auto 3.3 x10*3/uL (2.0-8.3); Neutrophils Percent Auto 48.9 % (45-73); Platelet Count 434 X10*3/uL (160-400); Red Blood Count 4.94 X10*6/uL (4.20-5.50); Red Cell Distribution Width 14.1 % (11.0-16.0); White Blood Count 6.8 X10*3/uL (4.8-10.8)
[2024-10-15 11:28] LABS: Alanine Aminotransferase 13 U/L (0-31); Albumin Level 4.3 g/dL (3.5-5.0); Alkaline Phosphatase 81 U/L (39-117); Anion Gap 10 (12-20); Aspartate Amino Transferase 21 U/L (5-31); Bilirubin Total 0.7 mg/dL (0.0-1.0); Blood Urea Nitrogen 15 mg/dL (9-16); C Reactive Protein 0.34 mg/dL (< or = 0.50); Calcium 9.4 mg/dL (8.4-10.2); Carbon Dioxide 26 mmol/L (22-29); Chloride 109 mmol/L (96-108); Cholesterol 179 mg/dL (<200); Estimated Glomerular Filt Rate > 60; Glucose Random 75 mg/dL (60-115); HDL Cholesterol 40 mg/dL (>40); Iron 77 mcg/dL (30-160); LDL Cholesterol Calculated 121 mg/dL (<100); Percent Iron Saturation 24 % (15-50); Potassium 3.8 mmol/L (3.3-5.1); Sodium 141 mmol/L (135-145); Total Iron Binding Capacity 316 mcg/dL (228-428); Total Protein 7.4 g/dL (6.5-8.0); Triglycerides 90 mg/dL (<150); Unsaturated Iron Binding 239 ug/dL
[2024-10-15 11:30] LABS: Ferritin 32 ng/mL (10-122); Insulin 5 uU/mL (2-29); Vitamin D 25-OH Total 50.9 ng/mL (>30)
[2024-10-15 11:32] LABS: Folate 13.9 ng/mL (> or = 4.0); Vitamin B12 967 pg/mL (200-900)
[2024-10-19 12:34] LABS: Zinc 80 mcg/dL (60-130)
[2024-10-20 18:23] LABS: Vitamin A 64 mcg/dL (38-98)
[2024-10-21 15:23] LABS: Vitamin B1 33 nmol/L (8-30)
== END 2024-10-15 08:44 | disposition home or self-care (01) ==
LOC: HO.LAB 08:43
PROVIDERS: Visit Provider Physician Assistant Surgical
DX: Z98.84 Bariatric surgery status (principal); Z90.49 Acquired absence of other specified parts of digestive tract; K91.2 Postsurgical malabsorption, not elsewhere classified; Z90.3 Acquired absence of stomach [part of]; K74.00 Hepatic fibrosis, unspecified; K76.9 Liver disease, unspecified
CPT/HCPCS: 36415; 80053; 80061; 82306; 82607; 82728; 82746; 83036; 83525; 83540; 84425; 84443; 84590; 84630; 85025; 86140

== ENCOUNTER 2025-01-20 10:40 | Outpatient (AMB) | payer OTHER, SELFPAY ==
[2025-01-20 07:38] VITALS: BMI 29.2
--- NOTE | 2025-01-20 07:38 | MHC.OFFVISWM ---
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 Presents for 1 year 3 month post op visit. She is also status post laparoscopic cholecystectomy on 01/22/2024. Weight today is 175.6 pounds, with a BMI of 29.2. There has been a 193.8 pound weight loss,(initial weight 369.4 pounds) since starting the program on 04/10/2023 reflecting a 52.4 % total body weight loss and a weight loss of 139.6 pounds since surgery (operative weight 315.2 pounds) reflecting a 44.2 % TBWL since surgery. No complaints of nausea, emesis, abdominal pain or reflux. Reports infrequent but normal bowel movements every 1-2 days and uses stool softeners regularly. She feels as though things are going well. She feels great and is doing well with the meal plan. She continues her meal plan and does not wish to change this point. She states that she has been having difficulty with the excess skin of her abdomen, arms and medial thigh. She describes the discomfort as somewhat painful, she has had intermittent rashes to the abdominal pannus. She additionally states that it is uncomfortable at night when she is trying to sleep. Clothes are ill-fitting and this causes her discomfort, especially with increased exercise and activity. She has been treating her abdominal rash with Rx antifungal with success. Only to have recurrence. The excess skin of her thighs also causes irritation with increased activity and warmer temperatures. Reports approximately 5-6 episodes of rash within the last 6 months. She reports that her abdominal skin causes the most discomfort followed very closely by the excess skin of her legs, then arms. Present meal plan includes: 2 celebrate 4 in 1 shakes with 2 scoops, 8-10, 1 scoop at 2-4 5-6 pm Meal with 6 forks of protein and 6 forks of vegetables. Drinking 40 oz daily in addition Exercise routine includes: walking treadmill at home 2.5 miles, 200-250 calories, 4-5 d/week, speed 4, incline flat as machine has no incline walking outside 2-3 days, about 2 miles, about 200 calories. yoga 1 x per week [facility] Medical History Pre-op evaluation Fatty liver ADHD (attention deficit hyperactivity disorder) Surgical History (Reviewed 10/15/24 @ 09: by DALLAS Murry) Hx laparoscopic cholecystectomy Hx of laparoscopic partial gastrectomy History of placement of ear tubes Hx of wisdom tooth extraction Hx of adenoidectomy Hx of tonsillectomy Family History Mother High cholesterol Obesity Father High cholesterol Obesity Sister Asthma Social History Household Members: None Housing: Apartment Are you a primary pediatric critical care nurse to a significant other at home: No Do you presently have visiting nurse or other home services: No Alcohol intake: current Alcohol intake frequency: does not drink Patient Tobacco Use Status: Never used Tobacco Telehealth Telehealth Telehealth Platform: Telephone Location of provider rendering services: practice address Location of patient: address on file Patient Identification confirmed using: Name, : Yes Telehealth method: voice only Patient verbally consented to treatment: Yes Patient verbally consented to billing insurance company: Yes Patient informed of any privacy concerns related to visit: Yes Minutes spent on Phone/Video with Pt.: 15 Assessment & Plan Assessment & Plan (1) S/P laparoscopic sleeve gastrectomy: Code(s): Z98.84 - Bariatric surgery status Category: Medical Plan: Patient continues to do very well. She is going on an upcoming international trip. She certainly may substitute a built bar in the middle of the day and have a meal in the morning with 4 forks of protein and 4 forks of vegetables if needed. She is only going to be away for approximately 5 days. Encouraged to increase exercise for a goal of burning 300 calories per day. We will have her return to the office for her 18 month postop appointment in March. Check labs at that time. Likely submit to insurance for medically necessary skin removal surgery in the setting of an almost 200 lb weight loss with recurrent, recalcitrant rashes due to excess skin.
== END 2025-01-20 10:41 | disposition home or self-care (01) ==
LOC: HO.HBS 10:40
PROVIDERS: Visit Provider Physician Assistant Surgical
DX: E66.3 Overweight (principal); Z68.29 Body mass index [BMI] 29.0-29.9, adult; Z90.3 Acquired absence of stomach [part of]; Z98.84 Bariatric surgery status
CPT/HCPCS: 98012

== ENCOUNTER 2025-04-15 08:10 | Outpatient (AMB) | payer OTHER, SELFPAY ==
--- NOTE | 2025-04-15 08:13 | A.OFFVIS_ITS ---
VS Expanded 04/15/25 08:22 BP 111/62 Blood Pressure Location Rt brachial Blood Pressure Position Sitting Pulse 63 Pulse Source Pulse Oximeter Temp 97.7 F Temperature Source Temporal Artery Scan Pulse Oximetry 99 Oxygen Delivery Method Room Air Height 5 ft 5 in Weight 170 lb 6.4 oz BMI 28.4 Body Fat % 30.7 Body Fat Mass 52.2 Fat Free Mass 118.0 Visceral Fat Rating 4.0 Body Water % 49.9 Body Water Mass 84.8 Muscle Mass/Score 112.0 Basal Metabolic Rate/Score 1,623 Intake Visit Reasons: (OV) PO LSG 10/14/23 Applications Programmer Analyst Required: No Allergies No Known Allergies Allergy (Verified 04/15/25 08:18) Medication List - Last Reconciled 04/15/25 by DALLAS Murry clotrimazole 1% (Antifungal (clotrimazole)) 1 appl topical BID levonorgestrel (Mirena) intrauterine HPI Comments Details: This?a?29?yo female who is s/p LSG without hiatal hernia repair on?10/14/2023. Presents for 1 year 6 month post op visit. She is also status post laparoscopic cholecystectomy on 01/22/2024. Weight today is 170.4 pounds, with a BMI of 28.3. There has been a 199 pound weight loss,(initial weight 369.4 pounds) since starting the program on 04/10/2023 reflecting a 53.8 % total body weight loss and a weight loss of 144.8 pounds since surgery (operative weight 315.2 pounds) reflecting a 45.9 % TBWL since surgery. No complaints of nausea, emesis, abdominal pain or reflux. Reports infrequent but normal bowel movements every 1- 2 days and uses stool softeners regularly. She feels as though things are going well. She feels great and is doing well with the meal plan. She continues her meal plan and does not wish to change this point. She states that she has been having difficulty with the excess skin of her abdomen, arms and medial thighs. She describes the discomfort as somewhat painful, she has had intermittent rashes to the abdominal pannus and thighs causing pain and itching. She additionally states that it is uncomfortable at night when she is trying to sleep. Clothes are ill-fitting and this causes her discomfort, especially with increased exercise and activity. She has been treating her abdominal rash with Rx antifungal with success. Only to have recurrence. The excess skin of her thighs also causes irritation with increased activity and warmer temperatures. Reports approximately 5-6 episodes of rash within the last 6 months. She reports that her abdominal skin causes the most discomfort followed very closely by the excess skin of her legs, then arms. Present meal plan includes: 2 celebrate 4 in 1 shakes with 2 scoops, 8-10, 1 scoop at 2-4 5-6 pm Meal with 6 forks of protein and 6 forks of vegetables. Drinking 40 oz daily in addition Exercise routine includes: walking outside 4-5 days, about 2-3 miles, about 200 calories. stationary bike 12 miles, 300 tracey yoga 1 x per week Any post op complications: none GHASSAN: never DM: never HTN: never Hyperlipidemia: nver GERD:?0-5 scale ??0 = no symptoms ??1 = symptoms noticeable but not bothersome 2 =symptoms bothersome but not daily ? 3 = symptoms bothersome and daily 4 = symptoms affect daily activities 5 = symptoms are incapacitating, unable to do daily activities ? How bad is the heartburn: 0 ? Heartburn while lying down:0 ? Heartburn when standing up: 0 ? Heartburn after meals: 0 ? Does heartburn change your diet: 0 ? Does heartburn wake you up from sleep: 0 ? Do you have difficulty swallowin ? Do you have pain with swallowin ? If you take medicine for your reflux, does this affect your daily life: 0 Satisfaction with present condition - satisfied or not satisfied: satisfied [facility] Medical History Pre-op evaluation Fatty liver ADHD (attention deficit hyperactivity disorder) Surgical History Hx laparoscopic cholecystectomy Hx of laparoscopic partial gastrectomy History of placement of ear tubes Hx of wisdom tooth extraction Hx of adenoidectomy Hx of tonsillectomy Family History Mother High cholesterol Obesity Father High cholesterol Obesity Sister Asthma Social History Household Members: None Housing: Apartment Are you a primary care team coordinator scheduler to a significant other at home: No Do you presently have visiting nurse or other home services: No Alcohol intake: current Alcohol intake frequency: does not drink Patient Tobacco Use Status: Never used Tobacco Physical Exam Const General: cooperative and no acute distress Orientation/consciousness: patient oriented x3 Resp Effort & Inspection: normal respiratory effort Auscultation: clear to auscultation bilaterally Cardio Rate: regular rate Rhythm: regular rhythm GI Inspection: Yes normal to inspection and Yes incision (well healed) Palpation (GI): Soft to palpation and no masses Skin Other: Pannus grade 3 of the abdomen, notable excess skin of the thighs and arms without excess rash. Neuro General: patient oriented x3 Assessment & Plan Assessment & Plan (1) S/P laparoscopic sleeve gastrectomy: Code(s): Z98.84 - Bariatric surgery status Category: Surgical Plan: Patient continues to do very well from a weight loss standpoint. We will continue her current meal plan. Encouraged to increase her exercise while using the stationary bike by way of incrementally increasing the resistance such that she can increase calories burned over the course of the distance. We will check 18 month postop labs and have her return to the office in approximately 6 months (2) Excess skin: Code(s): L98.7 - Excessive and redundant skin and subcutaneous tissue Category: Medical Plan: Patient has excess skin given the 199 lb weight loss since initiating the program approximately 2 years ago. This is equal to 53.8% total body weight loss. She has lost 144.8 lb or 45.9% total body weight loss since her surgery 18 months ago. As a result, she has developed excess skin of her abdomen, thighs and arms. The excess skin of her abdomen and thighs has caused recurrent rash, recalcitrant to topical antifungal prescriptive medications. The rash also causes pain and itching. She has difficulty with her ADLs including need for increased hygiene as well as ill fitting clothes due to the excess skin. As a result, we will recommend medically necessary skin removal surgery of her abdomen and thighs. We will submit for approval to her insurance company Orders: Orders Insulin Today K76.9 - Liver disease, unspecified, Z98.84 - Bariatric surgery status Hemoglobin A1c Today K76.9 - Liver disease, unspecified, Z98.84 - Bariatric surgery status Lipid Panel Today K76.9 - Liver disease, unspecified, Z98.84 - Bariatric surgery status Vitamin B12 and Folate Today K76.9 - Liver disease, unspecified, Z98.84 - Bariatric surgery status Vitamin A Today K76.9 - Liver disease, unspecified, Z98.84 - Bariatric surgery status Ferritin Today K76.9 - Liver disease, unspecified, Z98.84 - Bariatric surgery status Vitamin D 25-OH Total Today K76.9 - Liver disease, unspecified, Z98.84 - Bariatric surgery status Complete Blood Count Auto Diff Today K76.9 - Liver disease, unspecified, Z98.84 - Bariatric surgery status IRON PROFILE Today K76.9 - Liver disease, unspecified, Z98.84 - Bariatric surgery status Comprehensive Met. Panel Today K76.9 - Liver disease, unspecified, Z98.84 - Bariatric surgery status Zinc Today K76.9 - Liver disease, unspecified, Z98.84 - Bariatric surgery status C Reactive Protein Today K76.9 - Liver disease, unspecified, Z98.84 - Bariatric surgery status Vitamin B1 Today K76.9 - Liver disease, unspecified, Z98.84 - Bariatric surgery status TSH reflex Free T4 Today K76.9 - Liver disease, unspecified, Z98.84 - Bariatric surgery status
--- OUTSIDE RECORDS SUMMARY | 2025-04-15 08:13 | XMS_ITS | Clinical Summary ---
Author Organization [facility] Address [address] [place] [address] [place] [phone] Phone Care Team Providers Care Barrel Charrer Name Role Phone Pcp, Unknown Primary Care Provider Unavailabl e Allergies No known active allergies Medications norgestimate-ethi nyl estradioL (ORTHO-CYCLEN) 0.25-0.035 mg per tabletIndications :Encounter for surveillance of contraceptive pills Take 1 tablet by mouth daily. 84 tablet 3 Active Additional Information Patient not taking.Reported on 02/25/2024 Active Problems Problem Noted Date Diagnosed Date BMI 60.0-69.9, adult 04/04/2023 Social History Tobacco Use Types Packs/Day Years Used Date Smoking Tobacco: Never Passive Smoke Exposure: Never Smokeless Tobacco: Never Tobacco Cessation:Counseling Given: Not Answered Alcohol Use Standard Drinks/Week Comments Not Currently 0 (1 standard drink = 0.6 oz pur e alcohol) very rarely Education Answer Date Recorded Are you interested in more education? Not on iam e 01/25/2023 Are you concerned about learning? Not on file 01/25/2023 No 01/25/2023 No 01/25/2023 Digital Access Answer Date Recorded No 02/23/2023 No 02/23/2023 Reliable internet access at home? Not on file 02/23/2023 Device with a working camera? Not on file Education Answer Date Recorded What is the highest level of school you have completed or the highest degree you have received? 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 [employer] Not on file Not on file Not o n file Last Filed Vital Signs Vital Sign Reading Time Taken Comments Blood Pressure 130/84 02/25/2024 11:17 AM EDT Pulse - - Temperature - - Respiratory Rate - - Oxygen Saturation - - Inhaled Oxygen Concentration - - Weight 115.2 kg (254 lb) 02/25/2024 11:17 AM EDT Height 163.8 cm (5' 4.5 ) 02/20/2024 8:26 AM EDT Body Mass Index 42.93 02/20/2024 8:26 AM EDT Plan of Treatment Health Maintenance Due Date Last Done Comments Adult Td,Tdap Booster 1997 DEPRESSION SCREENING 2009 HEPATITIS C SCREENING 12/17/2015 HIV ONE-TIME SCREENING (18-6 5 YEARS) 12/17/2015 COVID-19 VACCINE (2023-2 5 season) 2024 PAP SMEAR 04/04/2026 04/04/2023 IUD 02/25/2032 02/25/2024 SMOKING STATUS SCREENING (On ce After 26 Yrs) Completed 02/25/2024 HEPATITIS A VACCINES Aged Out No long er eligible based on patient's age to complete this topic HIB VACCINES Aged Out No longer eligi ble based on patient's age to complete this topic MENINGOCOCCAL VACCINES (ACWY) Aged Out No longer eligible based on patient's age to complete this topic MENINGOCOCCAL VACCINES (B) Aged Out N o longer eligible based on patient's age to complete this topic PNEUMOCOCCAL VACCINES (0-49 years) Aged Out No longer eligible based on patient's age to complete this topic Medical Devices Implanted Type Area Skull Grinder Device Identifier Shelf Expiration Date Model / Serial / Lot Iud Implanted: (Quantity not on file) Intrauterine Device Procedures Procedure Name Priority Date/Time Associated Diagnosis Comments PAP TEST Routine 04/04/2023 12:00 AM EDT from Last 3 Months or Most Recently Relevant to Health Maintenance Results * Pap Test (04/04/2023 12:00 AM EDT) 04/04/2023 04/07/2023 10: 32 AM EDT Narrative SEE NARRATIVE - 04/10/2023 3:28 PM EDT [address] [address] Load Out Person: Codie Vincent MD STAFF ELECTRONIC WARFARE OFFICER Cytology Report FINAL DIAGNOSIS A. PAP SMEAR (SUREPATH) CE: SPECIMEN ADEQUACY: Satisfactory for evaluation; transformation zone absent/insufficient. INTERPRETATION: NEGATIVE FOR INTRAEPITHELIAL LESION OR MALIGNANCY. Coccobacilli consistent with shift in jeyson Electronically Signed Out By: SUNDAY Poon(ASCP) SUNDAY Rodriguez(ASCP) The Pap test is a screening test primarily for squamous cancers and precursors and has associated false-negative and false-positive results. New technologies such as liquid-based preparations may decrease but will not eliminate all false-negative results. Regular sampling and follow-up of unexplained clinical signs and symptoms are recommended to minimize false negative results. CLINICAL HISTORY Date of Last Menstrual Period: 03-13-23 Contraceptive History: BCPs Other Clinical Conditions: Screening Pap SPECIMEN SOURCE A: PAP SMEAR (SUREPATH) CE Patient Name: MICHELL MARTINEZ : 1995 (Age: 27) Sex: F Institution: [facility] Location: [facility] Date of Collection: 04/04/2023 Date of Reported: 04/10/2023 15:28 Results to: Humphrey Mayfield MD Humphrey Mayfield MD CYTOLOGY ORDERABLES Final Result SEE NARRATIVE from Last 3 Months or Most Recently Relevant to Health [place] [id number] [facility] Care Teams Barrel Charrer Relationship Specialty Start Date End Date Pcp, Unknown PCP - General 09/06/22 Additional Source Comments The information contained in this document represents components of the legal health record. It is not the complete legal health record.[facility]
[2025-04-15 08:22] VITALS: BP 111/62; PULSE 63; TEMP 36.5; O2SAT 99; BMI 28.4
== END 2025-04-15 08:53 | disposition home or self-care (01) ==
LOC: HO.HBS 08:10
PROVIDERS: Visit Provider Physician Assistant Surgical
DX: L98.7 Excessive and redundant skin and subcutaneous tissue (principal); E66.3 Overweight; Z68.28 Body mass index [BMI] 28.0-28.9, adult; Z90.3 Acquired absence of stomach [part of]; Z98.84 Bariatric surgery status
CPT/HCPCS: 99214

== ENCOUNTER 2025-05-13 07:51 | Outpatient (REF) | payer OTHER, SELFPAY ==
--- OUTSIDE RECORDS SUMMARY | 2025-05-13 07:54 | XMS_ITS | Clinical Summary ---
Author Organization [facility] Address [address] [place] [address] [place] [id number] Phone Care Team Providers Care Hvac Commercial Salesperson Name Role Phone Pcp, Unknown Primary Care [...] Master's degree (e.g., OMAR, MS, Margaret, MEd, HARBOR DEPARTMENT MANAGER, JERRY) 04/04/2023 Comments No Sex and Gender [...] this topic Medical Devices Implanted Type Area Egg Producer Device Identifier Shelf Expiration Date Model / [...] SEE NARRATIVE - 04/10/2023 3:28 PM EDT [address] [address] [employer] Corps Officer: Codie Vincent MD BAR PILOT Cytology Report FINAL DIAGNOSIS A. PAP SMEAR [...] : 1995 (Age: 27) Sex: F Institution: [facility] Location: [facility] Date of Collection: 04/04/2023 Date of Reported: 04/10/2023 15:28 Results to: Humphrey Mayfield MD Humphrey Mayfield MD CYTOLOGY ORDERABLES Final Result SEE NARRATIVE from Last 3 Months or Most Recently Relevant to Health [place] [id number] [facility] CHOICE [facility] CHOICE [facility] CHO[facility] CHOICE [facility] CHOICE [facility] CHOICE Care Teams Hvac Commercial Salesperson Relationship Specialty Start Date End Date Pcp, Unknown PCP - General 09/06/22 Additional Source Comments The information contained in this document represents components of the legal health record. It is not the complete legal health record.[facility]
[2025-05-13 08:09] LABS: MANUAL DIFF FLAG NO
[2025-05-13 08:39] LABS: Hematocrit 41.6 % (37.0-47.0); Hemoglobin 13.9 g/dl (12.0-16.0); Imm Gran Abs Auto 0.02 X10*3/uL (0.00-0.03); Imm Gran Pct Auto 0.3 % (0.0-0.4); Lymphocytes Absolute Auto 2.5 X10*3/uL (1.2-4.9); Mean Corpuscular HGB Conc 33.4 g/dl (31.0-35.0); Mean Corpuscular Hemoglobin 29.0 pg (27.0-33.0); Mean Corpuscular Volume 86.8 fL (80.0-98.0); NRBC Abs Auto 0.000 X10*3/uL (0.0-0.012); NRBC Pct Auto 0.0 /100WBC (0.0-0.2); Platelet Count 437 X10*3/uL (160-400); Red Blood Count 4.79 X10*6/uL (4.20-5.50); White Blood Count 6.4 X10*3/uL (4.8-10.8)
[2025-05-13 08:46] LABS: Hemoglobin A1C 116.3060 umol/L; Total Hemoglobin (HGBA1C) 3673.2174 umol/L
[2025-05-13 09:28] LABS: Anion Gap 10 (12-20)
[2025-05-13 09:35] LABS: Alanine Aminotransferase 15 U/L (0-31); Albumin Level 4.3 g/dL (3.5-5.0); Alkaline Phosphatase 69 U/L (39-117); Aspartate Amino Transferase 24 U/L (5-31); Blood Urea Nitrogen 15 mg/dL (9-16); Calcium 9.3 mg/dL (8.4-10.2); Carbon Dioxide 27 mmol/L (22-29); Chloride 106 mmol/L (96-108); Cholesterol 182 mg/dL (<200); Estimated Glomerular Filt Rate > 60; Folate 14.5 ng/mL (> or = 4.0); HDL Cholesterol 48 mg/dL (>40); Iron 91 mcg/dL (30-160); Percent Iron Saturation 30 % (15-50); Potassium 4.0 mmol/L (3.3-5.1); Sodium 139 mmol/L (135-145); Total Iron Binding Capacity 300 mcg/dL (228-428); Total Protein 6.8 g/dL (6.5-8.0); Triglycerides 79 mg/dL (<150); Unsaturated Iron Binding 209 ug/dL
[2025-05-13 09:37] LABS: Ferritin 38 ng/mL (10-122)
[2025-05-13 09:59] LABS: Vitamin B12 1238 pg/mL (200-900)
== END 2025-05-13 07:52 | disposition home or self-care (01) ==
LOC: HO.LAB 07:51
PROVIDERS: Visit Provider Physician Assistant Surgical
DX: K76.9 Liver disease, unspecified (principal); Z98.84 Bariatric surgery status; Z13.29 Encounter for screening for other suspected endocrine disorder; Z13.1 Encounter for screening for diabetes mellitus
CPT/HCPCS: 36415; 80053; 80061; 82306; 82607; 82728; 82746; 83036; 83525; 83540; 84425; 84443; 84590; 84630; 85025; 86140

== ENCOUNTER 2025-06-15 08:25 | Outpatient (AMB) | payer OTHER, SELFPAY ==
--- OUTSIDE RECORDS SUMMARY | 2025-06-15 09:25 | XMS_ITS | Clinical Summary ---
Author Organization [facility] Address [address] [place] [address] [place] [phone] Phone Care Team Providers Care Air Saw Operator Name Role Phone Pcp, Unknown Primary Care [...] Master's degree (e.g., OMAR, MS, Margaret, MEd, MALT SPECIFICATIONS CONTROL ASSISTANT, JERRY) 04/04/2023 Comments No Sex and Gender [...] HIV ONE-TIME SCREENING (18-6 5 YEARS) 12/17/2015 INFLUENZA VACCINE (#1) 2025 COVID-19 VACCINE (2023-2 5 season) 2025 PAP SMEAR 04/04/2026 04/04/2023 IUD 02/25/2032 02/25/2024 [...] this topic Medical Devices Implanted Type Area Canvas Cutter Hand Device Identifier Shelf Expiration Date Model / [...] SEE NARRATIVE - 04/10/2023 3:28 PM EDT [address] [address] Spray Machine Operator: Codie Vincent MD ARCH SUPPORT TECHNICIAN Cytology Report FINAL DIAGNOSIS A. PAP SMEAR [...] : 1995 (Age: 27) Sex: F Institution: [facility] Location: [facility] Date of Collection: 04/04/2023 Date of Reported: 04/10/2023 15:28 Results to: Humphrey Mayfield MD Humphrey Mayfield MD CYTOLOGY ORDERABLES Final Result SEE NARRATIVE from Last 3 Months or Most Recently Relevant to Health [place] [id number] [facility] CHOICE [facility] CHOICE [facility] CHOICE [facility] CHOICE [facility] CHOICE [facility] CHOICE Care Teams Air Saw Operator Relationship Specialty Start Date End Date Pcp, Unknown PCP - General 09/06/22 Additional Source Comments The information contained in this document represents components of the legal health record. It is not the complete legal health record.[facility]
--- NOTE | 2025-06-15 10:34 | A.OFFVIS_ITS ---
VS Expanded 06/15/25 10:42 Height 5 ft 5 in Weight 167 lb 8 oz BMI 27.9 Body Fat % 32.7 Body Fat Mass 54.8 Fat Free Mass 113 Visceral Fat Rating 11 Body Water % 46.2 Body Water Mass 77.5 Basal Metabolic Rate/Score 1,476 Intake Visit Reasons: TV Pre Op Panni + Thighplasty 06/23/25 Allergies No Known Allergies Allergy (Verified 06/15/25 10:34) Medication List - Last Reconciled 06/15/25 by Krzysztof Zelaya MD cephalexin 500 mg PO Q12H clotrimazole 1% (Antifungal (clotrimazole)) 1 appl topical BID PRN docusate sodium (Colace) 100 mg PO DAILY levonorgestrel (Mirena) intrauterine ondansetron 4 mg PO Q12H HPI HPI TV Pre Op Panni + Thighplasty 06/23/25: Details: Start time: 10.25am, End time: 10.55am ?I spent 25 minutes speaking with the patient on the phone plus an additional 5 minutes reviewing and updating records for a total of 30 minutes HPI Comments Details: Overall weight loss: 200.8lbs, or 54.5% TBWL Is using a Celebrate 4:1 protein shake (2 scoops in almond milk), another shake (1 scoop in almond) and meal (6 forks of meat and 6 forks of salad) and either half Pure protein bar or a fruit in the evening Exercise: is doing walking, or stationary bike x5/wk for 350 calories per week PFSH Medical History (Updated 06/07/25 @ 10:56 by Machelle Pierce RN) IUD (intrauterine device) in place Pre-op evaluation Fatty liver ADHD (attention deficit hyperactivity disorder) Surgical History Hx laparoscopic cholecystectomy Hx of laparoscopic partial gastrectomy History of placement of ear tubes Hx of wisdom tooth extraction Hx of adenoidectomy Hx of tonsillectomy Family History Mother High cholesterol Obesity Father High cholesterol Obesity Sister Asthma Social History (Updated 06/07/25 @ 10:54 by Machelle Pierce RN) Household Members: Significant Other Housing: Apartment Are you a primary healthcare economics consultant to a significant other at home: No Do you presently have visiting nurse or other home services: No Alcohol intake: current Alcohol intake frequency: does not drink Patient Tobacco Use Status: Never used Tobacco Use of substances other than those prescribed or required for medical reasons: Yes Substance Use Type Other:: marijuana edibles none since 05/24/2025, before that 3x week Have you been hit, kicked, punched, or otherwise hurt by someone within the past year? If so, by whom?: No Are you DNR?: No Advance Directives: No Advance Directives Information Provided: Yes Advance Directives on File: No Healthcare Proxy: No Patient : No FDLMP: unknown, irregular : No Poor oral hygiene: No Telehealth Telehealth Telehealth Platform: Telephone Location of provider rendering services: practice address Location of patient: address on file Patient Identification confirmed using: Name, : Yes Telehealth method: voice only Patient verbally consented to treatment: Yes Patient verbally consented to billing insurance company: Yes Patient informed of any privacy concerns related to visit: Yes Minutes spent on Phone/Video with Pt.: 30 Assessment & Plan Assessment & Plan (1) Excess skin: Code(s): L98.7 - Excessive and redundant skin and subcutaneous tissue Category: Medical Plan: 1. Plan for bilateral thighplasty and panniculectomy. Risks of infection, bleeding, asymmetry, wound dehiscence and blood clots were discussed with the patient. 2. You will have a drain the abdomen that may stay a few weeks before it may be removed 3. You will need to be doing sponge baths the first 1-2 weeks. No showers. You need to have help at home to get you up and limit your activities as much as possible for at least the 4-6 weeks after surgery 4. We will arrange for a visiting nurse to come at home to help you with dressing changes and send me pictures of the procedures. We will send at your home supplies for the dressing changes. 5. Continue nutritional plan of one Celebrate 4:1 protein shake (2 scoops in almond milk), another shake (1 scoop in almond milk) and meal (6 forks of meat and 6 forks of salad) and either half or whole Pure protein bar in the evening. This will improve weight loss and healing after surgery. Avoid salt from food completely. You can replace your salad with a fruit during dinner time but don't replace the bar with a fruit until you heal completely from this procedure 6. Continue all your medications until the day before surgery 7. Do blood work not fasting on Friday06/17/25 and garbage pick up worker the antibiotic prescription from your pharmacy 8. Risks and complications were discussed the possibility of bleeding that may require transfusion, loss of the umbilicus, wound dehiscence or infection, dog ears , flap asymmetry. We also discussed the importance of strict avoidance of weight lifting. 9. Avoid aspirin, motrin, ibuprofen, Excedrin, Meloxicam, Aleve, Advil, Naproxyn. Only Tylenol Orders: Orders Partial Thromboplastin Time Today K91.2 - Postsurgical malabsorption, not elsewhere classified, Z90.3 - Acquired absence of stomach [part of] Type and Screen Today K91.2 - Postsurgical malabsorption, not elsewhere classified, Z90.3 - Acquired absence of stomach [part of] Complete Blood Count Auto Diff Today K91.2 - Postsurgical malabsorption, not elsewhere classified, Z90.3 - Acquired absence of stomach [part of] Prothrombin Time INR Today K91.2 - Postsurgical malabsorption, not elsewhere classified, Z90.3 - Acquired absence of stomach [part of] Comprehensive Met. Panel Today K91.2 - Postsurgical malabsorption, not elsewhere classified, Z90.3 - Acquired absence of stomach [part of] Medications: New docusate sodium (Colace) 100 mg PO DAILY 90 caps 0RF K59.00 - Constipation, unspecified cephalexin 500 mg PO Q12H 60 caps 2RF M79.3 - Panniculitis, unspecified ondansetron Only take one every 12 hours as needed if you have nausea 4 mg PO Q12H 20 tabs 0RF nausea and vomiting R11.0 - Nausea
[2025-06-15 10:42] VITALS: BMI 27.9
== END 2025-06-15 10:56 | disposition home or self-care (01) ==
LOC: HO.HBS 08:25
PROVIDERS: PCP Family Medicine; Visit Provider Surgery
DX: L98.7 Excessive and redundant skin and subcutaneous tissue (principal); E66.3 Overweight; Z68.27 Body mass index [BMI] 27.0-27.9, adult
CPT/HCPCS: 98014

== ENCOUNTER 2025-06-23 08:33 | Day surgery (SDC) | payer OTHER, SELFPAY ==
--- OUTSIDE RECORDS SUMMARY | 2025-05-12 13:52 | XMS_ITS | Clinical Summary ---
Author Organization [facility] Address [address] [place] [address] [place] [id number] Phone Care Team Providers Care Physician Assistant Name Role Phone Pcp, Unknown Primary Care [...] Master's degree (e.g., OMAR, MS, Margaret, MEd, CHIEF RADIOLOGY, JERRY) 04/04/2023 Comments No Sex and Gender [...] this topic Medical Devices Implanted Type Area Magneto Repairer Device Identifier Shelf Expiration Date Model / [...] SEE NARRATIVE - 04/10/2023 3:28 PM EDT [address] [address] Planer Tailer: Codie Vincent MD WOOL CARDER Cytology Report FINAL DIAGNOSIS A. PAP SMEAR [...] (Age: 27) Sex: F Institution: [facility] Location: [facility] Date of Collection: 04/04/2023 Date of Reported: 04/10/2023 15:28 Results to: Humphrey Mayfield MD Humphrey Mayfield MD CYTOLOGY ORDERABLES Final Result SEE NARRATIVE from Last 3 Months or Most Recently Relevant to Health [place] [id number] [facility] CHOICE [facility] CHOICE [facility] CHOICE [facility] CHOICE [facility] CHOICE [facility] CHOICE Care Teams Physician Assistant Relationship Specialty Start Date End Date Pcp, Unknown PCP - General 09/06/22 Additional Source Comments The information contained in this document represents components of the legal health record. It is not the complete legal health record.[facility]
[2025-06-07 10:50] VITALS: BMI 28.8
[2025-06-17 07:54] LABS: MANUAL DIFF FLAG NO
[2025-06-17 08:14] LABS: Hematocrit 41.7 % (37.0-47.0); Hemoglobin 14.4 g/dl (12.0-16.0); Imm Gran Abs Auto 0.01 X10*3/uL (0.00-0.03); Imm Gran Pct Auto 0.2 % (0.0-0.4); Lymphocytes Absolute Auto 2.4 X10*3/uL (1.2-4.9); Mean Corpuscular HGB Conc 34.5 g/dl (31.0-35.0); Mean Corpuscular Hemoglobin 29.2 pg (27.0-33.0); Mean Corpuscular Volume 84.6 fL (80.0-98.0); NRBC Abs Auto 0.000 X10*3/uL (0.0-0.012); NRBC Pct Auto 0.0 /100WBC (0.0-0.2); Platelet Count 376 X10*3/uL (160-400); Red Blood Count 4.93 X10*6/uL (4.20-5.50); White Blood Count 6.1 X10*3/uL (4.8-10.8)
[2025-06-17 08:28] LABS: INTERNATIONAL NORM RATIO 1.1 (0.9-1.1); Prothrombin Time 12.9 SEC (10.9-12.4)
[2025-06-17 08:30] LABS: Partial Thromboplastin Time 41.1 SEC (26.7-34.1)
[2025-06-17 08:40] LABS: Alanine Aminotransferase 15 U/L (0-31); Albumin Level 4.7 g/dL (3.5-5.0); Alkaline Phosphatase 65 U/L (39-117); Anion Gap 11 (12-20); Aspartate Amino Transferase 22 U/L (5-31); Blood Urea Nitrogen 19 mg/dL (9-16); Calcium 9.5 mg/dL (8.4-10.2); Carbon Dioxide 26 mmol/L (22-29); Chloride 108 mmol/L (96-108); Creatinine Clr Calc Pharmacy 126.0; Estimated Glomerular Filt Rate > 60; Potassium 3.7 mmol/L (3.3-5.1); Sodium 141 mmol/L (135-145); Total Protein 7.0 g/dL (6.5-8.0)
[2025-06-23] VITALS (11 sets, daily range): BP systolic 100–123; BP diastolic 53–72; PULSE 69–106; RESP 10–18; TEMP 36.6–36.9; O2SAT 95–100
[2025-06-23 09:02] LABS: UPreg QC Valid YES
[2025-06-23] MEDS: Aprepitant 32 MG/4.4 ML VIAL IVPUSH (09:25)
[2025-06-23] MEDS: Lactated Ringers 1,000 ML 100 ML IVCONT (09:25)
--- NOTE | 2025-06-23 09:56 | MHC.SHP ---
Pre-Procedural Eval Section A - 24 Hr Update-Section A only Date of Service: 06/23/25 The patient is an INPATIENT: No The patient has been examined within 24 hours of the surgical procedure. The History & Physical has been completed within 30 days and I have reviewed it.: Yes Section B - Complete if H&P > 30 days Chief Complaint: Excessive and redundant skin and subcutaneous Relevant Family History (Specify if Yes): No Relevant Social History: None Present Medications: None Medical History: No relevant PMH History of Previous Operations: Relevant previous surgery/procedure and date(s) (Laparoscopic sleeve gastrectomy) Allergies: Allergies Allergy/AdvReac Type Severity Reaction Status Date / Time No Known Allergies Allergy Verified 06/23/25 09:00 Review of Systems Sugical H&P ROS: Negative: Constitution, Cardiovascular, Respiratory, Neurological, Psychiatric, Hem-Onc, Allergic/Immunologic, Gastrointestinal, Genitourinary, Musculoskeletal, Integumentary, Endocrine and Eyes/Ears/Nose/Throat Exam Surgical H&P Exam: Normal: HEENT, Normal: Heart, Normal: Lungs, Normal: Extremities, Normal: Abdomen, Normal: Skin and Normal: Neurological Plan Diagnosis/Plan: Unchanged I have reviewed the history and physical and performed a pertinent physical examination on my patient. No changes have occurred unless specified. Time Spent With Patient Time: Total time managing care of this patient today ____ minutes.
--- NOTE | 2025-06-23 09:57 | P.BOP_ITS ---
Brief Operative Note Date of Service: 06/23/25 Pre-op diagnosis: Excess skin Post-op diagnosis: same Procedure: PROCEDURE: Panniculectomy with umbilical transposition and bilateral subcutaneous fat flaps, bilateral thighplasty INDICATION: This a 29 year old female who underwent laparoscopic sleeve gastrectomy on 10/14/2023. She had an excellent result achieving a BMI of 28 kg/m2 with a total weight loss of 200.8lbs, or 54.5% of her TBWL. As a result, she has developed panniculitis which has not resolved despite continuous use of clotrimazole ointment as well as skin irritation. On exam she has extreme skin laxity due to massive weight loss, with the abdominal pannus completely hanging 4cm below the pubis. Panniculectomy was recommended. We discussed the two options for the panniculectomy of using a combined vertical and horizontal incisions or just a horizontal (bikini) incision. It was my recommendation to do only horizontal incision based on her body habitus and skin laxity. The patient agreed with this. Risks and complications were discussed with the patient including bleeding, infection, umbilical loss, flap necrosis, asymmetry, dehiscence, seroma, VTE. The patient understood the risks and was in agreement to proceed with surgery. In addition, as a result of the massive weight loss, she has developed skin irritation and intetrigo in medial thighs. On exam she has extreme skin laxity due to massive weight loss and age and friction between the?inner thighs. Bilateral brachioplasty and thighplasty was recommended. PROCEDURE: The incisions were appropriately marked at the preop area with the patient standing and laying down. After induction of general anesthesia a Reagan catheter and pneumatic compression devices were placed. The patient was prepped and draped in the usual sterile manner and the incisions were marked again and confirmed. The skin was infiltrated with lidocaine and epinephrine. The #10 blade scalpel was used for the large incisions and the #15 blade scalpel for the umbilicus. Cautery was used to divide the subcutaneous tissues until the fascia was identified. Then I used the cautery to separate the pannus from the fascia. The inferior incision was made initially and I mobilized the flap for a several centimeters cephalad to the umbilicus. The umbilicus was incised circumferentially and detached from the surrounding tissues all the way to the fascia while its stalk was preserved. With the patient in reflex position I confirmed that the skin flaps were appropriate and would allow for the tissues to come together with reasonable tension. At that point a horizontal incision was made 4 cm above the umbilicus. #10 blade was used for the skin, cautery for the dermis and for the remaining tissues. A subcutaneous fat flap was raised from the upper skin flap in order to fill the space under the skin and support the closure of the two flaps. In addition the inferior flap was mobilized caudally for a few centimeters to create a space for the subcutaneous fat flap as well as relieve tension from the closure. A circumferential incision was made at the area where the umbilicus would be re-implanted. The umbilicus was appropriately oriented and was delivered through the defect and was secured in place with a Macario. No bleeding was noted anywhere. One Rashad drain was placed from the left corner of the horizontal incision across the wound and was secured in place with a silk suture. The subcutaneous fat flap was secured under the inferior flap with several interrupted 3.0 Monocryl sutures. The two flaps were brought together and were attached at the midline of the horizontal incision with a #3.0 Monocryl suture. At that point the umbilicus was properly oriented and was re-approximated to the skin with 8 interrupted 3.0 Monocryl sutures. In a similar fashion the skin fl aps were re-approximated with multiple 3.0 Monocryl sutures. The skin was closed in all incisions and umbilicus with 4.0 Monocryl sutures. Steri-strips, xeroform gauzes and gauzes were used to cover the incisions. An abdominal binder was also placed. In a similar manner the thigh incisions were appropriately marked. The legs were flexed at the knees and abducted at the hip level.?The anterior incision was made first. I did not commit to the posterior incision until dissection was completed and I could assess the appropriate location for the posterior incision to prevent excessive tension. Cautery was used to separate the skin from subcutaneous tissues. Careful attention was paid to make sure that the plain of excision was superficial as close to the skin as possible and superior to the fa scia. The right thigh skin was 33 cm x 7 cm and the left 30 cm x 7.5 cm. Skin was closed in two layers using interrupted 3.0 Monocryl sutures for the dermis and 4.0 subcuticular Monocryl suture for the skin. The was awaken and was transferred to the recover room in a stable condition. I was present and performed the entire procedure. Alexei Jonunique was the patient care assistant. Dionicio Zelaya MD, PhD, FACS Surgeon: Krzysztof Zelaya MD Surgeon: Krzysztof Zelaya MD Anesthesia: GETA and local Was an Poison Information Specialist used for this Procedure?: No Poison Information Specialist: Candida Voss Estimated blood loss (mL): 10 IV fluids (mL): 3,000 Urine output (mL): 250 Pathology: other (1) Abdominal pannus, 2) Left thigh, 3) Right thigh) Condition: stable Disposition: PACU
--- NOTE | 2025-06-23 09:59 | P.F2F_ITS ---
Service Date Service Date: 06/23/25 Encounter Date of encounter: 06/23/25 Reasons for Services Signs and symptoms assessed: s/p panniculectomy and bilateral thighplasty, requires 3x weekly detention visits for wound assessment, assistance with dressing changes and drain care Reason for detention: wound care Homebound: Leaving the home is medically contraindicated at this time without the asist of a device and/or another person due th the listed conditions above and below. Reason homebound: unable to drive Certification: Based on the above findings, I certify that this patient is confined to the home and needs intermittent detention care, physical therapy and/or speech therapy, or continues to need occupational therapy. The patient is under my care, and I have initiated the establishment of the plan of care. The patient will be followed by a physician who will periodically review the plan of care. Time Spent With Patient Time: Total time managing care of this patient today __30__ minutes.
--- NOTE | 2025-06-23 10:03 | P.CONAN_ITS ---
Documented by User: Marilia Lux NP 06/21/25 09:46 HPI - Anesthesia Eval Consult details Narrative: 29yo F for Panniculectomy, Thighplasty PMFSH Active Problems Active Problems: All Active Problems Excess skin (Acute) S/P laparoscopic cholecystectomy (Acute) Postgastrectomy malabsorption (Acute) S/P laparoscopic sleeve gastrectomy (Acute) GERD (gastroesophageal reflux disease) (Acute) Liver fibrosis (Acute) ADHD (attention deficit hyperactivity disorder), combined type (Acute) Liver disease, chronic (Acute) Morbid obesity (Acute) Past Medical History Medical History IUD (intrauterine device) in place Pre-op evaluation Fatty liver ADHD (attention deficit hyperactivity disorder) Family History Family History Mother High cholesterol Obesity Father High cholesterol Obesity Sister Asthma Surgical History Surgical History Hx laparoscopic cholecystectomy Hx of laparoscopic partial gastrectomy History of placement of ear tubes Hx of wisdom tooth extraction Hx of adenoidectomy Hx of tonsillectomy History of Problems with Anesthesia: No Social History Social History (Updated 06/07/25 @ 10:54 by Machelle Pierce RN) Household Members: None Housing: Apartment Are you a primary urgent care nurse practitioner to a significant other at home: No Do you presently have visiting nurse or other home services: No Alcohol intake: current Alcohol intake frequency: does not drink Patient Tobacco Use Status: Never used Tobacco Use of substances other than those prescribed or required for medical reasons: Yes Substance Use Type Other:: marijuana edibles none since 05/24/2025, before that 3x week Have you been hit, kicked, punched, or otherwise hurt by someone within the past year? If so, by whom?: No Are you DNR?: No Advance Directives: No Advance Directives Information Provided: Yes Advance Directives on File: No Healthcare Proxy: No Patient : No FDLMP: unknown, irregular : No Poor oral hygiene: No Meds Allergies Allergy/AdvReac Type Severity Reaction Status Date / Time No Known Allergies Allergy Verified 06/23/25 09:00 Home Medications ?Medication ?Instructions ?Recorded ?Confirmed ?Last Taken ?Type levonorgestrel (Mirena) intrauterine 03/02/24 Unknown History clotrimazole 1 % topical cream 1 appl topical BID PRN Skin 06/07/25 06/23/25 Unknown History (Antifungal (clotrimazole)) Irritation Exam Height,Weight and Vital Signs: Height 5 ft 4 in Weight 76.204 kg Pertinent Lab Results Pertinent Lab Results: Laboratory Tests 06/17/25 06/17/25 07:44 07:53 WBC 6.1 RBC 4.93 Hgb 14.4 Hct 41.7 MCV 84.6 MCH 29.2 MCHC 34.5 RDW 12.8 Plt Count 376 MPV 9.8 Immature Gran % (Auto) 0.2 Neut % (Auto) 50.7 Lymph % (Auto) 39.1 [place] % (Auto) 6.4 Eos % (Auto) 2.6 Baso % (Auto) 1.0 Lymph # (Auto) 2.4 [place] # (Auto) 0.4 Eos # (Auto) 0.2 Baso # (Auto) 0.1 Abs Immat Gran (auto) 0.01 Absolute Neuts (auto) 3.1 Absolute Nucleated RBC 0.000 Nucleated RBC % (auto) 0.0 PT 12.9 H INR 1.1 APTT 41.1 H Sodium 141 Potassium 3.7 Chloride 108 Carbon Dioxide 26 Anion Gap 11 L BUN 19 H Creatinine 0.67 Estim Creat Clear Calc 126.0 Estimated GFR > 60 Random Glucose 78 Calcium 9.5 Total Bilirubin 1.0 AST 22 ALT 15 Alkaline Phosphatase 65 Total Protein 7.0 Albumin 4.7 Blood Type O Negative Antibody Screen NEGATIVE Assessment and Plan Assessment Anesthesia Assessment: Chart Reviewed Final Anesthetic Review History of Problems with Anesthesia: No Documented by User: Zoe Ruby DO 06/23/25 10:09 [facility] Past Medical History Medical History IUD (intrauterine device) in place Pre-op evaluation Fatty liver ADHD (attention deficit hyperactivity disorder) Family History Family History Mother High cholesterol Obesity Father High cholesterol Obesity Sister Asthma Family history of problems with anesthesia: No Surgical History Surgical History Hx laparoscopic cholecystectomy Hx of laparoscopic partial gastrectomy History of placement of ear tubes Hx of wisdom tooth extraction Hx of adenoidectomy Hx of tonsillectomy History of Problems with Anesthesia: No Social History Social History (Updated 06/07/25 @ 10:54 by Machelle Pierce RN) Household Members: None Housing: Apartment Are you a primary urgent care nurse practitioner to a significant other at home: No Do you presently have visiting nurse or other home services: No Alcohol intake: current Alcohol intake frequency: does not drink Patient Tobacco Use Status: Never used Tobacco Use of substances other than those prescribed or required for medical reasons: Yes Substance Use Type Other:: marijuana edibles none since 05/24/2025, before that 3x week Have you been hit, kicked, punched, or otherwise hurt by someone within the past year? If so, by whom?: No Are you DNR?: No Advance Directives: No Advance Directives Information Provided: Yes Advance Directives on File: No Healthcare Proxy: No Patient : No FDLMP: unknown, irregular : No Poor oral hygiene: No Meds Allergies Allergy/AdvReac Type Severity Reaction Status Date / Time No Known Allergies Allergy Verified 06/23/25 09:00 Home Medications ?Medication ?Instructions ?Recorded ?Confirmed ?Last Taken ?Type levonorgestrel (Mirena) intrauterine 03/02/24 Unknown History clotrimazole 1 % topical cream 1 appl topical BID PRN Skin 06/07/25 06/23/25 Unknown History (Antifungal (clotrimazole)) Irritation Exam Exam Date and Time: 06/23/25 1004 Height,Weight and Vital Signs: Height 5 ft 4 in Weight 76.204 kg Vital Signs Temperature 97.9 F 06/23/25 09:02 Pulse Rate 69 06/23/25 09:02 Respiratory Rate 14 06/23/25 09:02 Blood Pressure 110/72 06/23/25 09:02 Pulse Oximetry 98 06/23/25 09:02 Oxygen Delivery Method Room Air 06/23/25 09:02 Temperature 97.9 F 06/23/25 09:02 Pulse Rate 69 06/23/25 09:02 Respiratory Rate 14 06/23/25 09:02 Blood Pressure 110/72 06/23/25 09:02 Pulse Oximetry 98 06/23/25 09:02 Oxygen Delivery Method Room Air 06/23/25 09:02 Airway Mallampati Class: II TM Dist: >3cm Neck ROM: Full Loose/Missing/Broken Teeth: No (patient denies any loose or broken teeth) Heart: S1S2 Lungs: CTAB Assessment and Plan Assessment Anesthesia Assessment: Anesthesia Plan Discussed and Chart Reviewed Final Anesthetic Review Family History of Problems with Anesthesia: No History of Problems with Anesthesia: No NPO: Yes ASA Class: II Final Preanesthetic Review: No Changes in Pt Med Stat, Meds/Allgs Chart Reviewed, Consent Obtained/Reviewed and Anes Risks/Benef Reviewed Patient Risk: Low Procedure Risk: Low Anesthetic Plan Anesthetic Plan: GA and Agree w/ Assess. and Plan Disposition: Standard PACU
== END 2025-06-23 18:44 | disposition home or self-care (01) ==
PROVIDERS: Nurse Practitioner; PCP Family Medicine; Visit Provider Surgery
PROC: 0JB80ZZ Excision of Abdomen Subcutaneous Tissue and Fascia, Open Approach (ICD-10-PCS; CPT 15830; principal; 2025-06-23 10:20)
PROC: (CPT 15830; 2025-06-23 10:20)
DX: L98.7 Excessive and redundant skin and subcutaneous tissue (principal); K91.2 Postsurgical malabsorption, not elsewhere classified; E65 Localized adiposity; M79.3 Panniculitis, unspecified; Z90.3 Acquired absence of stomach [part of]; L30.4 Erythema intertrigo; R21 Rash and other nonspecific skin eruption; K76.0 Fatty (change of) liver, not elsewhere classified; F90.9 Attention-deficit hyperactivity disorder, unspecified type; Z97.5 Presence of (intrauterine) contraceptive device; Z90.49 Acquired absence of other specified parts of digestive tract; Z98.890 Other specified postprocedural states
CPT/HCPCS: 15830; 15847; 15832; 36415; 80053; 81025; 85025; 85610; 85730; 86850; 86900; 86901; 88304; C9145; J0131; J0690; J1100; J1171; J2003; J2004; J2250; J2405; J2704; J3010; J3374

== ENCOUNTER → 2025-06-23 08:33 | Outpatient (BNV) | payer OTHER, SELFPAY | PROVIDERS: PCP Family Medicine; Visit Provider Physician Assistant Surgical | DX: M79.3 Panniculitis, unspecified (principal); L98.7 Excessive and redundant skin and subcutaneous tissue | CPT/HCPCS: 15830; 15832; G0180 ==

== ENCOUNTER 2025-06-29 13:43 | Outpatient (AMB) | payer OTHER, SELFPAY ==
--- NOTE | 2025-06-29 13:52 | MHC.OFFVISWM ---
VS Expanded 06/29/25 14:02 BP 116/75 Blood Pressure Location Rt brachial Blood Pressure Position Sitting Pulse 82 Pulse Source Pulse Oximeter Temp 98.2 F Temperature Source Temporal Artery Scan Pulse Oximetry 99 Oxygen Delivery Method Room Air Intake Visit Reasons: OV Panni + Thighplasty 06/23/25 Allergies No Known Allergies Allergy (Verified 06/29/25 14:02) Medication List - Last Reconciled 06/29/25 by DALLAS Navarro cephalexin 500 mg PO Q12H docusate sodium (Colace) 100 mg PO DAILY levonorgestrel (Mirena) intrauterine ondansetron 4 mg PO Q12H HPI Comments Details: Pt is 8d s/p panniculectomy and bilateral thighplasty 06/23/2025. No fevers at home. Following meal plan as directed by Dr. Sotomayor Wearing abdominal binder. Drain output approximately 40cc/day. [facility] Medical History IUD (intrauterine device) in place Pre-op evaluation Fatty liver ADHD (attention deficit hyperactivity disorder) Surgical History (Updated 06/29/25 @ 14:03 by Lashay James CMA) S/P panniculectomy Hx laparoscopic cholecystectomy Hx of laparoscopic partial gastrectomy History of placement of ear tubes Hx of wisdom tooth extraction Hx of adenoidectomy Hx of tonsillectomy Family History Mother High cholesterol Obesity Father High cholesterol Obesity Sister Asthma Social History (Updated 06/07/25 @ 10:54 by Machelle Pierce RN) Household Members: None Housing: Apartment Are you a primary complex care nurse to a significant other at home: No Do you presently have visiting nurse or other home services: No Alcohol intake: current Alcohol intake frequency: does not drink Patient Tobacco Use Status: Never used Tobacco Physical Exam Const General: cooperative, comfortable and no acute distress Orientation/consciousness: patient oriented x3 GI Other: soft, nontender, nondistended, panniculectomy incisions c/d/i with umbilicus viable, drain output SS Skin Other: thighplasty incisions c/d/i Neuro General: patient oriented x3 Assessment & Plan Assessment & Plan (1) S/P panniculectomy: Code(s): Z98.890 - Other specified postprocedural states Category: Surgical (2) S/P thighplasty: Code(s): Z98.890 - Other specified postprocedural states Category: Surgical Plan Continue high protein diet. ABX keflex 500 BID x 2 weeks, extended as needed?(at least until drain comes out plus 1 week).? Drain out after consistently 20 mL or less daily.? Abdominal binder at all times except for care x 1 month?MINIMUM. If there are concerns longer.? No driving?until drain out.? No walking outside or exercise for 6 weeks minimum. Walking in the house after today okay. Assistance getting up for 4 weeks minimum.?No lifting greater than?10 pounds x 2 months and no abdominal exercises x 3 months. RTC 1 week.
[2025-06-29 14:02] VITALS: BP 116/75; PULSE 82; TEMP 36.8; O2SAT 99
--- OUTSIDE RECORDS SUMMARY | 2025-06-29 15:00 | XMS_ITS | Clinical Summary ---
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 PAP SMEAR [...] : 1995 (Age: 27) Sex: F Institution: [facility] Location: [facility] Date of Collection: 04/04/2023 Date of Reported: 04/10/2023 15:28 Results to: Humphrey Mayfield MD Humphrey Mayfield MD CYTOLOGY ORDERABLES Final Result SEE NARRATIVE from Last 3 Months or Most Recently Relevant to Health Maintenance [place] [id number] [facility] Care Teams Ammonia Distiller Relationship Specialty Start Date End Date Pcp, Unknown PCP - General 09/06/22 Additional Source Comments The information contained in this document represents components of the legal health record. It is not the complete legal health record.[facility]
== END 2025-06-29 15:23 | disposition home or self-care (01) ==
LOC: HO.HBS 13:44
PROVIDERS: Visit Provider Physician Assistant Surgical
DX: Z71.3 Dietary counseling and surveillance (principal); Z98.890 Other specified postprocedural states
CPT/HCPCS: 99024

== ENCOUNTER 2025-07-06 15:11 | Outpatient (AMB) | payer OTHER, SELFPAY ==
--- NOTE | 2025-07-06 15:25 | MHC.OFFVISWM ---
VS Expanded 07/06/25 15:27 BP 119/64 Blood Pressure Location Rt brachial Blood Pressure Position Sitting Pulse 77 Pulse Source Pulse Oximeter Temp 98.2 F Temperature Source Temporal Artery Scan Pulse Oximetry 98 Oxygen Delivery Method Room Air Intake Visit Reasons: OV Panni + Thighplasty 06/23/25 Allergies No Known Allergies Allergy (Verified 07/06/25 15:28) Medication List - Last Reviewed 07/06/25 by Lashay James CMA cephalexin 500 mg PO Q12H docusate sodium (Colace) 100 mg PO DAILY levonorgestrel (Mirena) intrauterine ondansetron 4 mg PO Q12H HPI Comments Details: Pt is 4w s/p panniculectomy and bilateral thighplasty 06/23/2025. No fevers at home. Following meal plan as directed by Dr. Sotomayor Wearing abdominal binder. Drain output approximately c/day. [facility] Medical History IUD (intrauterine device) in place Pre-op evaluation Fatty liver ADHD (attention deficit hyperactivity disorder) Surgical History (Updated 06/29/25 @ 14:03 by Lashay James CMA) S/P panniculectomy Hx laparoscopic cholecystectomy Hx of laparoscopic partial gastrectomy History of placement of ear tubes Hx of wisdom tooth extraction Hx of adenoidectomy Hx of tonsillectomy Family History Mother High cholesterol Obesity Father High cholesterol Obesity Sister Asthma Social History Household Members: None Housing: Apartment Are you a primary home health care worker to a significant other at home: No Do you presently have visiting nurse or other home services: No Alcohol intake: current Alcohol intake frequency: does not drink Patient Tobacco Use Status: Never used Tobacco Physical Exam Const General: cooperative, comfortable and no acute distress Orientation/consciousness: patient oriented x3 GI Other: soft, nontender, nondistended, panniculectomy incision c/d/i, drain output SS Skin Other: thighplasty incisions c/d/i Neuro General: patient oriented x3 Assessment & Plan Assessment & Plan (1) S/P panniculectomy: Code(s): Z98.890 - Other specified postprocedural states Category: Surgical (2) S/P thighplasty: Code(s): Z98.890 - Other specified postprocedural states Category: Surgical (3) S/P laparoscopic sleeve gastrectomy: Code(s): Z98.84 - Bariatric surgery status Category: Surgical Plan Continue high protein diet. ABX keflex 500 BID x 2 weeks, extended as needed?(at least until drain comes out plus 1 week).? Drain out after consistently 20 mL or less daily.? Abdominal binder at all times except for care x 1 month?MINIMUM. If there are concerns longer.? No driving?until drain out.? No walking outside or exercise for 6 weeks minimum. Walking in the house okay. Assistance getting up for 4 weeks minimum.?No lifting greater than?10 pounds x 2 months and no abdominal exercises x 3 months. RTC 1 week.
[2025-07-06 15:27] VITALS: BP 119/64; PULSE 77; TEMP 36.8; O2SAT 98
== END 2025-07-06 15:51 | disposition home or self-care (01) ==
LOC: HO.HBS 15:12
PROVIDERS: Visit Provider Physician Assistant Surgical
DX: Z71.3 Dietary counseling and surveillance (principal); Z98.890 Other specified postprocedural states; Z98.84 Bariatric surgery status
CPT/HCPCS: 99024

== ENCOUNTER 2025-07-13 14:37 | Outpatient (AMB) | payer OTHER, SELFPAY ==
--- NOTE | 2025-07-13 15:03 | A.OFFVIS_ITS ---
VS Expanded 07/13/25 15:04 BP 114/63 Blood Pressure Location Rt brachial Blood Pressure Position Sitting Pulse 79 Pulse Source Pulse Oximeter Temp 97.2 F Temperature Source Temporal Artery Scan Pulse Oximetry 97 Oxygen Delivery Method Room Air Intake Visit Reasons: OV Panni + Thighplasty 06/23/25 Drawbridge Tender Required: No Accompanied by: Significant Other Allergies No Known Allergies Allergy (Verified 07/13/25 15:05) HPI Comments Details: Pt is 5 w s/p panniculectomy and thighplasty. No fevers at home. Continues on abx. Drain output 15cc per day or less. R thigh open area remains stable per pt. [facility] Medical History IUD (intrauterine device) in place Pre-op evaluation Fatty liver ADHD (attention deficit hyperactivity disorder) Surgical History S/P panniculectomy Hx laparoscopic cholecystectomy Hx of laparoscopic partial gastrectomy History of placement of ear tubes Hx of wisdom tooth extraction Hx of adenoidectomy Hx of tonsillectomy Family History Mother High cholesterol Obesity Father High cholesterol Obesity Sister Asthma Social History Household Members: None Housing: Apartment Are you a primary acute care certified nursing assistant to a significant other at home: No Do you presently have visiting nurse or other home services: No Alcohol intake: current Alcohol intake frequency: does not drink Patient Tobacco Use Status: Never used Tobacco Physical Exam Vital Signs: Last Vital Signs Temp 97.2 F 07/13/25 15:04 Pulse 79 07/13/25 15:04 BP 114/63 07/13/25 15:04 Pulse Ox 97 07/13/25 15:04 Oxygen Delivery Method Room Air 07/13/25 15:04 Const General: cooperative, comfortable and no acute distress Orientation/consciousness: patient oriented x3 GI Other: soft, nontender, nondistended, incision c/d/i, drain output serous Skin Other: thighplasty incisions healing well with 1cm open area on R upper thigh, superficial, appears stable from previous Neuro General: patient oriented x3 Assessment & Plan Assessment & Plan (1) S/P panniculectomy: Code(s): Z98.890 - Other specified postprocedural states Category: Medical (2) S/P thighplasty: Code(s): Z98.890 - Other specified postprocedural states Category: Medical Plan Continue high protein diet. ABX keflex 500 BID x 1 more week.? Drain out today.? Abdominal binder at all times except for care x 1 month?MINIMUM. If there are concerns longer. May drive. May shower in 48h. No walking outside or exercise for 6 weeks minimum. Walking in the house ok. Assistance getting up for 4 weeks minimum.?No lifting greater than?10 pounds x 2 months and no abdominal exercises x 3 months.
[2025-07-13 15:04] VITALS: BP 114/63; PULSE 79; TEMP 36.2; O2SAT 97
== END 2025-07-13 16:07 | disposition home or self-care (01) ==
LOC: HO.HBS 14:38
PROVIDERS: Visit Provider Physician Assistant Surgical
DX: Z71.3 Dietary counseling and surveillance (principal); Z98.890 Other specified postprocedural states
CPT/HCPCS: 99024

== ENCOUNTER 2025-07-20 15:14 | Outpatient (AMB) | payer OTHER, SELFPAY ==
[2025-07-20 15:44] VITALS: BP 107/62; PULSE 72; TEMP 36.9; O2SAT 98
--- NOTE | 2025-07-20 15:44 | MHC.OFFVISWM ---
VS Expanded 07/20/25 15:44 BP 107/62 Blood Pressure Location Rt brachial Blood Pressure Position Sitting Pulse 72 Pulse Source Pulse Oximeter Temp 98.4 F Temperature Source Temporal Artery Scan Pulse Oximetry 98 Oxygen Delivery Method Room Air Intake Visit Reasons: OV Panni + Thighplasty 06/23/25 Allergies No Known Allergies Allergy (Verified 07/13/25 15:05) Medication List - Last Reconciled 07/20/25 by DALLAS Navarro cephalexin 500 mg PO Q12H docusate sodium (Colace) 100 mg PO DAILY levonorgestrel (Mirena) intrauterine HPI Comments Details: Pt is 6w s/p bilateral thighplasty and panniculectomy. Drain removed last week. Continues on abx until weekend per Dr Corrales. Continues on meal plan. [facility] Medical History IUD (intrauterine device) in place Pre-op evaluation Fatty liver ADHD (attention deficit hyperactivity disorder) Surgical History S/P panniculectomy Hx laparoscopic cholecystectomy Hx of laparoscopic partial gastrectomy History of placement of ear tubes Hx of wisdom tooth extraction Hx of adenoidectomy Hx of tonsillectomy Family History Mother High cholesterol Obesity Father High cholesterol Obesity Sister Asthma Social History Household Members: None Housing: Apartment Are you a primary critical care educator to a significant other at home: No Do you presently have visiting nurse or other home services: No Alcohol intake: current Alcohol intake frequency: does not drink Patient Tobacco Use Status: Never used Tobacco Physical Exam Vital Signs: Last Vital Signs Temp 98.4 F 07/20/25 15:44 Pulse 72 07/20/25 15:44 BP 107/62 07/20/25 15:44 Pulse Ox 98 07/20/25 15:44 Oxygen Delivery Method Room Air 07/20/25 15:44 Const General: cooperative, comfortable and no acute distress Orientation/consciousness: patient oriented x3 GI Other: soft, nontender, nondistended, panniculectomy incision c/d/i Skin Other: thighplasty incisions c/d/i, one small area of upper right thigh that was open is improving, width is less 0.1cm Neuro General: patient oriented x3 Assessment & Plan Assessment & Plan (1) S/P panniculectomy: Code(s): Z98.890 - Other specified postprocedural states Category: Surgical (2) S/P thighplasty: Code(s): Z98.890 - Other specified postprocedural states Category: Surgical (3) S/P laparoscopic sleeve gastrectomy: Code(s): Z98.84 - Bariatric surgery status Category: Surgical Plan Continue high protein diet. ABX keflex 500 BIDuntil this weekend.? Abdominal binder at all times except for care x 1 month?MINIMUM. If there are concerns longer.? May drive. No walking outside or exercise for 6 weeks minimum. Walking in the house ok. Assistance getting up for 4 weeks minimum.?No lifting greater than?10 pounds x 2 months and no abdominal exercises x 3 months.
--- OUTSIDE RECORDS SUMMARY | 2025-07-20 21:28 | XMS_ITS | Clinical Summary ---
Author Organization [facility] Address [address] [place] [address] [place] [phone] Phone Care Team Providers Care Sales And Service Consultant Name Role Phone Pcp, Unknown Primary Care [...] Master's degree (e.g., OMAR, MS, Margaret, MEd, AGER OPERATOR, JERRY) 04/04/2023 Comments No Sex and Gender [...] 12/17/2015 INFLUENZA VACCINE (#1) 2025 COVID-19 VACCINE (2024-2 6 season) 2025 PAP SMEAR 04/04/2026 04/04/2023 IUD [...] this topic Medical Devices Implanted Type Area Seo Team Lead Device Identifier Shelf Expiration Date Model / [...] SEE NARRATIVE - 04/10/2023 3:28 PM EDT [address] [address] Inspector [employer]: Codie Vincent MD ASSEMBLER AND TESTER ELECTRONICS Cytology Report FINAL DIAGNOSIS A. PAP SMEAR [...] : 1995 (Age: 27) Sex: F Institution: [facility] Location: [facility] Date of Collection: 04/04/2023 Date of Reported: 04/10/2023 15:28 Results to: Humphrey Mayfield MD Humphrey Mayfield MD CYTOLOGY ORDERABLES Final Result SEE NARRATIVE from Last 3 Months or Most Recently Relevant to Health [place] [id number] [facility] CHOICE [facility] CHOICE [facility] CHO[facility] Care Teams Sales And Service Consultant Relationship Specialty Start Date End Date Pcp, Unknown PCP - General 09/06/22 Additional Source Comments The information contained in this document represents components of the legal health record. It is not the complete legal health record.[facility]
== END 2025-07-20 16:20 | disposition home or self-care (01) ==
LOC: HO.HBS 15:14
PROVIDERS: Visit Provider Physician Assistant Surgical
DX: Z71.3 Dietary counseling and surveillance (principal); Z98.890 Other specified postprocedural states; Z98.84 Bariatric surgery status
CPT/HCPCS: 99024

== ENCOUNTER 2025-08-03 13:43 | Outpatient (AMB) | payer OTHER, SELFPAY ==
[2025-08-03 13:53] VITALS: BP 114/76; PULSE 79; TEMP 36.6; O2SAT 98; BMI 26.1
--- NOTE | 2025-08-03 13:55 | A.OFFVIS_ITS ---
VS Expanded 08/03/25 13:53 BP 114/76 Blood Pressure Location Rt brachial Blood Pressure Position Sitting Pulse 79 Pulse Source Pulse Oximeter Temp 97.9 F Temperature Source Temporal Artery Scan Pulse Oximetry 98 Oxygen Delivery Method Room Air Height 5 ft 5 in Weight 157 lb BMI 26.1 Intake Visit Reasons: OV Panni + Thighplasty 06/23/25 Allergies No Known Allergies Allergy (Verified 08/03/25 13:54) Medication List - Last Reconciled 08/03/25 by DALLAS Navarro docusate sodium (Colace) 100 mg PO DAILY levonorgestrel (Mirena) intrauterine HPI Comments Details: Pt is 8w s/p bilateral thighplasty and panniculectomy. Completed abx. No fevers at home. Continues on meal plan. She does note increasing issues of skin of upper arms. She had previously reported chafing to our office, with friction causing discomfort when skin of upper arms rubs against torso. Clothing is difficult to fit properly due to the excess skin; she has to choose longer sleeves or larger sizes of clothing to accommodate the skin of the arms during her normal daily activities, but has to wear more compressive sleeves during exercise to prevent discomfort during movement. 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 Shaving her underarms is more difficult due to the excess skin getting in the way. She has tried the topical ointment that was previously prescribed by our office to help with the chafing, however this does not definitively resolve these issues. [facility] Medical History (Updated 08/03/25 @ 14:26 by DALLAS Navarro) IUD (intrauterine device) in place Pre-op evaluation Fatty liver ADHD (attention deficit hyperactivity disorder) Surgical History S/P panniculectomy Hx laparoscopic cholecystectomy Hx of laparoscopic partial gastrectomy History of placement of ear tubes Hx of wisdom tooth extraction Hx of adenoidectomy Hx of tonsillectomy Family History Mother High cholesterol Obesity Father High cholesterol Obesity Sister Asthma Social History Household Members: None Housing: Apartment Are you a primary wound care rn to a significant other at home: No Do you presently have visiting nurse or other home services: No Alcohol intake: current Alcohol intake frequency: does not drink Patient Tobacco Use Status: Never used Tobacco Physical Exam Vital Signs: Last Vital Signs Temp 97.9 F 08/03/25 13:53 Pulse 79 08/03/25 13:53 BP 114/76 08/03/25 13:53 Pulse Ox 98 08/03/25 13:53 Oxygen Delivery Method Room Air 08/03/25 13:53 Const General: cooperative, comfortable and no acute distress Orientation/consciousness: patient oriented x3 GI Other: soft, nontender, nondistended, incisions well healed, drain site healing well Skin Other: bilateral thigh incisions healed; previous open area on upper R thigh now closed Neuro General: patient oriented x3 Assessment & Plan Assessment & Plan (1) S/P laparoscopic sleeve gastrectomy: Code(s): Z98.84 - Bariatric surgery status Category: Surgical (2) S/P panniculectomy: Code(s): Z98.890 - Other specified postprocedural states Category: Surgical (3) S/P thighplasty: Code(s): Z98.890 - Other specified postprocedural states Category: Surgical (4) Overweight: Code(s): E66.3 - Overweight Category: Medical Plan Pt doing well s/p panniculectomy and bilateral thigh plasty. Continue abdominal binder, refrain from heavy lifting and core exercises until 3mo postop. She is experiencing issues of excess skin of upper arms, resulting in painful chafing. The excess skin is limiting or causing difficulty with normal activities of daily living, including certain responsibilities for her job, and requires the use of special clothing. RTC 3mo. If eventually approved for brachioplasty pt is interested in having surgery in mid February.
--- OUTSIDE RECORDS SUMMARY | 2025-08-03 16:37 | XMS_ITS | Clinical Summary ---
Author Organization [facility] Address [address] [place] [address] [place] [phone] Phone Care Team Providers Care Stereo Equipment Installer Name Role Phone Pcp, Unknown Primary Care [...] Master's degree (e.g., OMAR, MS, Margaret, MEd, COOK FISH AND CHIPS, JERRY) 04/04/2023 Comments No Sex and Gender [...] this topic Medical Devices Implanted Type Area Business Analytics Intern Device Identifier Shelf Expiration Date Model / [...] SEE NARRATIVE - 04/10/2023 3:28 PM EDT [address] [address] Escort Car Driver: Codie Vincent MD GEOTHERMAL OPERATING ENGINEER Cytology Report FINAL DIAGNOSIS A. PAP SMEAR [...] : 1995 (Age: 27) Sex: F Institution: [facility] Location: [facility] Date of Collection: 04/04/2023 Date of Reported: 04/10/2023 15:28 Results to: Humphrey Mayfield MD Humphrey Mayfield MD CYTOLOGY ORDERABLES Final Result SEE NARRATIVE from Last 3 Months or Most Recently Relevant to Health [place] [id number] [facility] CHOICE [facility] CHOICE [facility] CHOICE [facility] CHOICE [facility] CHOICE [facility] CHO[facility] Care Teams Stereo Equipment Installer Relationship Specialty Start Date End Date Pcp, Unknown PCP - General 09/06/22 Additional Source Comments The information contained in this document represents components of the legal health record. It is not the complete legal health record.[facility]
== END 2025-08-03 14:54 | disposition home or self-care (01) ==
LOC: HO.HBS 13:43
PROVIDERS: PCP Family Medicine; Visit Provider Physician Assistant Surgical
DX: E66.3 Overweight (principal); Z68.26 Body mass index [BMI] 26.0-26.9, adult; Z98.84 Bariatric surgery status; Z98.890 Other specified postprocedural states
CPT/HCPCS: 99024

== ENCOUNTER 2025-09-01 07:43 | Outpatient (AMB) | payer OTHER, SELFPAY ==
--- OUTSIDE RECORDS SUMMARY | 2025-09-01 07:49 | XMS_ITS | Clinical Summary ---
Author Organization [facility] Address [address] [place] [address] [place] [id number] Phone Care Team Providers Care Wood Fuel Pelletizer Name Role Phone Pcp, Unknown Primary Care [...] Master's degree (e.g., OMAR, MS, Margaret, MEd, OFFBEARER SEWER PIPE, JERRY) 04/04/2023 Comments No Sex and Gender [...] this topic Medical Devices Implanted Type Area Candy Wrapping Machine Operator Device Identifier Shelf Expiration Date Model / [...] SEE NARRATIVE - 04/10/2023 3:28 PM EDT [address] [address] Tailer Off: Codie Vincent MD LUNCHROOM ATTENDANT Cytology Report FINAL DIAGNOSIS A. PAP SMEAR [...] : 1995 (Age: 27) Sex: F Institution: [facility] Location: [facility] Date of Collection: 04/04/2023 Date of Reported: 04/10/2023 15:28 Results to: Humphrey Mayfield MD Humphrey Mayfield MD CYTOLOGY ORDERABLES Final Result SEE NARRATIVE from Last 3 Months or Most Recently Relevant to [place] [id number] [facility] COMMUN[facility] CHOICE [facility] CHOICE [facility] CHOICE [facility] CHOICE [facility] COMM[facility] CHOICE [facility] CHOICE Care Teams Wood Fuel Pelletizer Relationship Specialty Start Date End Date Pcp, Unknown PCP - General 09/06/22 Additional Source Comments The information contained in this document represents components of the legal health record. It is not the complete legal health record.[facility]
--- NOTE | 2025-09-01 07:52 | A.OFFVIS_ITS ---
VS Expanded 09/01/25 08:06 BP 115/71 Blood Pressure Location Rt brachial Blood Pressure Position Sitting Pulse 74 Pulse Source Pulse Oximeter Temp 97.9 F Temperature Source Temporal Artery Scan Pulse Oximetry 99 Oxygen Delivery Method Room Air Height 5 ft 5 in Weight 160 lb 3.2 oz BMI 26.7 Body Fat % 28.4 Body Fat Mass 45.4 Fat Free Mass 114.6 Visceral Fat Rating 3.0 Body Water % 51.4 Body Water Mass 82.2 Muscle Mass/Score 109.0 Basal Metabolic Rate/Score 1,570 Intake Visit Reasons: OV PO Panni & Thighplasty 06/23/25 Allergies No Known Allergies Allergy (Verified 09/01/25 08:10) Medication List - Last Reconciled 09/01/25 by DALLAS Navarro docusate sodium (Colace) 100 mg PO DAILY levonorgestrel (Mirena) intrauterine HPI Comments Details: Pt is s/p bilateral thighplasty and panniculectomy 06/22/2025. Doing well postop, continues on meal plan. She does note ongoing increasing issues of skin of upper arms. She had previously reported chafing to our office, with friction causing discomfort when skin of upper arms rubs against torso. Clothing is difficult to fit properly due to the excess skin; she has to choose longer sleeves or larger sizes of clothing to accommodate the skin of the arms during her normal daily activities, but has to wear more compressive sleeves during exercise to prevent discomfort during movement. 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 Shaving her underarms is more difficult due to the excess skin getting in the way. She has tried the topical ointment that was previously prescribed by our office to help with the chafing, however this does not definitively resolve these issues. [facility] Medical History (Updated 08/03/25 @ 14:26 by DALLAS Navarro) IUD (intrauterine device) in place Pre-op evaluation Fatty liver ADHD (attention deficit hyperactivity disorder) Surgical History S/P panniculectomy Hx laparoscopic cholecystectomy Hx of laparoscopic partial gastrectomy History of placement of ear tubes Hx of wisdom tooth extraction Hx of adenoidectomy Hx of tonsillectomy Family History Mother High cholesterol Obesity Father High cholesterol Obesity Sister Asthma Social History Household Members: None Housing: Apartment Are you a primary daycare manager to a significant other at home: No Do you presently have visiting nurse or other home services: No Alcohol intake: current Alcohol intake frequency: does not drink Patient Tobacco Use Status: Never used Tobacco Physical Exam Vital Signs: Last Vital Signs Temp 97.9 F 09/01/25 08:06 Pulse 74 09/01/25 08:06 BP 115/71 09/01/25 08:06 Pulse Ox 99 09/01/25 08:06 Oxygen Delivery Method Room Air 09/01/25 08:06 BMI result Body Mass Index 26.7 Const General: cooperative, comfortable and no acute distress Orientation/consciousness: patient oriented x3 Skin Other: excess skin of bilateral upper arms, max of 8cm length from triceps on R and 7.5cm on L Neuro General: patient oriented x3 Assessment & Plan Assessment & Plan (1) S/P laparoscopic sleeve gastrectomy: Code(s): Z98.84 - Bariatric surgery status Category: Surgical (2) Overweight: Code(s): E66.3 - Overweight Category: Medical (3) Excess skin: Code(s): L98.7 - Excessive and redundant skin and subcutaneous tissue Category: Medical Plan Pt is experiencing difficulty with issues of excess skin of upper arms, resulting in frequent painful chafing and rashes refractory to topical Rx treatment. She is also experiencing limitations and discomfort in activities of daily living, including those necessary for her job. She has done extremely well with weight loss, maintaining a stable weight and achieving 56.47% TBWL. She would benefit from brachioplasty for definitive management. Photos taken today, will submit to insurance.
[2025-09-01 08:06] VITALS: BP 115/71; PULSE 74; TEMP 36.6; O2SAT 99; BMI 26.7
== END 2025-09-01 08:44 | disposition home or self-care (01) ==
LOC: HO.HBS 07:43
PROVIDERS: PCP Family Medicine; Visit Provider Physician Assistant Surgical
DX: E66.3 Overweight (principal); Z68.26 Body mass index [BMI] 26.0-26.9, adult; L98.7 Excessive and redundant skin and subcutaneous tissue; Z90.3 Acquired absence of stomach [part of]; Z98.84 Bariatric surgery status
CPT/HCPCS: 99024